=== PATIENT | male | born 1970 | race Two or more races ===

== ENCOUNTER 2020-09-06 20:06 | Inpatient (IN) | payer OTHER, SELFPAY ==
[2020-09-06 20:14] VITALS: BP 160/99; PULSE 81; RESP 20; TEMP 36.4; O2SAT 97; BMI 27.6
[2020-09-06 20:23] VITALS: PULSE 78; RESP 18; O2SAT 100
--- NOTE | 2020-09-06 20:23 | XR_ITS ---
EXAMINATION: XR CHEST CLINICAL INFORMATION: Chest pain COMPARISON: 05/25/2008 TECHNIQUE: Frontal view of the chest was obtained. FINDINGS: No significant abnormality is noted involving the heart, lungs, mediastinum, bony thorax or soft tissues. XR/XR chest 1V IMPRESSION: Unremarkable examination.
--- NOTE | 2020-09-06 20:23 | ECG_ITS ---
Test Reason : CHEST PRESSURE Blood Pressure : / mmHG Vent. Rate : 080 BPM Atrial Rate : 080 BPM P-R Int : 140 ms QRS Dur : 088 ms QT Int : 382 ms P-R-T Axes : 039 015 -04 degrees QTc Int : 440 ms Normal sinus rhythm ST & T wave abnormality, consider inferior ischemia Abnormal ECG When compared with ECG of 25-MAY-2008 04:10, T wave inversion now evident in Inferior leads Heart rate has decreased Referred By: Generic ED Physician Electronically Signed By:QUYEN LOPEZ MD
--- NOTE | 2020-09-06 21:01 | ED.SOB ---
HPI - SOB/Dyspnea General Chief Complaint: General Medical Stated Complaint: CHEST PAIN Time Seen by Provider: 09/06/20 20:59 Source: patient Mode of arrival: ambulatory Limitations: no limitations History of Present Illness HPI Narrative: This is a 49-year-old male with history of asthma and reports 3 days of chest like pressure without radiation that increases with deep inspiration but denies any cough, fevers, chills and he reports he is an everyday smoker. He denies any recent COVID-19 testing, chest pain /palpitations, but has had some mild nausea for 2 days as well. He denies any recent travel, calf swelling /pain, recent bed-bound state, personal family history of clotting disorders. Related Data Home Medications Medication Instructions Recorded Confirmed No Known Home Meds 09/07/20 09/07/20 Allergies Allergy/AdvReac Type Severity Reaction Status Date / Time shellfish derived Allergy Unknown ANAPHYLAXIS Unverified 06/25/20 14:51 [SHELLFISH DERIVED] Review of Systems Review of Systems: Pertinent positives and negatives as stated in HPI 10 point review of systems is otherwise negative. PMFSH Past Medical History Source: nursing notes reviewed Medical History Asthma No known health problems Social History Social History Alcohol intake: current Alcohol intake frequency: holidays/special occasions only Smoking Status: Current some day smoker Smoked in Last 30 Days: Yes Use of substances other than those prescribed or required for medical reasons: No Advance Directives: No Advance Directives Information Provided: Yes Physical Exam Vital Signs: Vital Signs: Last Vital Signs Temp 97.6 F 09/06/20 20:14 Pulse 72 09/07/20 02:00 Resp 18 09/07/20 02:00 BP 160/99 H 09/06/20 20:14 Pulse Ox 100 09/07/20 02:00 Body Mass Index 27.6 VITAL SIGNS: Reviewed. GENERAL: Well developed, well nourished, in no acute distress. HEAD: Normocephalic/atraumatic, EYES: PERRLA, EOMI intact without pain, no nystagmus/pallor/icterus noted EARS: Ext canals without abnormality, TMs non-bulging and non-erythematous NOSE: Nares patent bilateral OROPHARYNX: no oral lesions noted, posterior pharynx clear and non-erythematous without noted tonsillar enlargement/erythema/exudates NECK: Supple, no adenopathy LUNGS: Normal breath sounds. No adventitious sounds or accessory muscle use. SpO2<97> CARDIOVASCULAR: Regular rate and rhythm without noted murmurs, no JVD or lower extremity edema. ABDOMEN: Soft, non-tender, non-distended with bowel sounds. No rigidity. No guarding. No palpable masses or hernias noted MUSCULOSKELETAL: No tenderness, deformities, or effusions noted on gross inspection. EXTREMITIES: No cyanosis, clubbing or edema. SKIN: Inspection of the skin reveals no rashes, ulcerations, jaundice, pallor, or petechiae. NEUROLOGIC: Alert and oriented x 4. Strength and sensation to light touch were grossly intact x 4. Course Course Course Narrative: 49-year-old male with past medical history and clinical exam suggestive of possible mild asthma but will rule out pneumonia or cardiac etiologies. On review of all investigations there are no acute findings other than the high sensitivity troponin is elevated as documented below and 2nd troponin did not demonstrate doubling or a delta 50% so this is inconsistent with NSTEMI but will update cardiology with these results. Of note, the D-dimer was negative and COVID-19 is negative and chest x-ray is without acute pathologies. This case was discussed with inpatient hospitalist who is agreeable for admission. Repeat troponin was found to be slightly greater than 700 and this was communicated with cardiology who has no further recommendations regarding anticoagulation at this time and will proceed with echocardiogram in the morning. Reevaluation(s) Reevaluation #1: Lab called and reported a troponin level of 635.2, will discuss this with Cardiology and on review of EKG there are changes within the inferior distribution when compared to 05/25/[address] elevations and suspect that this may be an NSTEMI or alternative etiology troponin elevation such as a myopericarditis Time: 22:15 Reevaluation #2: I discussed the case with Dr. Molina who states there is a possibility that this could be of myocarditis specially with the given history however we will repeat the troponin and he agrees with initial administration of aspirin. Time: 22:40 MDM - SOB/Dyspnea Lab Data Result diagrams: 09/06/20 21:31 09/06/20 21:31 Labs: Lab Results 09/06/20 09/06/20 09/06/20 Range/Units 21:31 21:31 21:31 WBC 10.6 (4.8-10.8) X10*3/uL RBC 5.30 (4.60-5.80) X10*6/uL Hgb 16.5 (14.0-18.0) g/dl Hct 48.0 (42-52) % MCV 90.6 (80-98) fL MCH 31.1 (27.0-33.0) pg MCHC 34.4 (31.0-36.0) g/dl RDW 12.6 (11.0-16.0) % Plt Count 267 (160-400) X10*3/uL MPV 11.2 (9.4-12.4) fL Immature Gran % (Auto) 0.3 (0.0-0.4) % Neut % (Auto) 53.4 (45-73) % Lymph % (Auto) 34.3 (20-40) % [place] % (Auto) 9.6 (2-11) % Eos % (Auto) 1.9 (0-4) % Baso % (Auto) 0.5 (0-2) % Lymph # (Auto) 3.6 (1.2-4.9) X10*3/uL [place] # (Auto) 1.0 (0.1-1.2) X10*3/uL Eos # (Auto) 0.2 (0.0-0.4) X10*3/uL Baso # (Auto) 0.1 (0.0-0.2) X10*3/uL Abs Immat Gran (auto) 0.03 (0.00-0.03) X10*3/uL Absolute Neuts (auto) 5.7 (2.0-8.3) X10*3/uL Absolute Nucleated RBC 0.000 (0.0-0.012) X10*3/uL Nucleated RBC % (auto) 0.0 (0.0-0.2) /100WBC D-Dimer < 200 NG/ML Hold Blue Top SEE NOTE Sodium 139 (135-145) mmol/L Potassium 4.0 (3.3-5.1) mmol/l Chloride 102 (96-108) mmol/L Carbon Dioxide 28 (22-29) mmol/L Anion Gap 13 (12-20) BUN 9 (9-16) mg/dL Creatinine 0.94 (0.5-1.4) mg/dL Estim Creat Clear Calc 96.1 Estimated GFR > 60 Random Glucose 90 (60-115) mg/dL Calcium 9.3 (8.4-10.2) mg/dL Troponin I High Sens (<3.5-35.0) ng/L C-Reactive Protein 0.52 H (< or = 0.50) mg/dL Urine Opiates Screen (Not Detect) Ur Barbiturates Screen (Not Detect) Ur Phencyclidine Scrn (Not Detect) Ur Amphetamines Screen (Not Detect) U Benzodiazepines Scrn (Not Detect) Urine Cocaine Screen (Not Detect) U Marijuana (THC) Screen (Not Detect) Coronavirus (PCR) (Negative) Influenza Type A (PCR) (Negative) Influenza Type B (PCR) (Negative) RSV RNA Qual (PCR) (Negative) 09/06/20 09/06/20 09/06/20 Range/Units 21:31 23:03 23:42 WBC (4.8-10.8) X10*3/uL RBC (4.60-5.80) X10*6/uL Hgb (14.0-18.0) g/dl Hct (42-52) % MCV (80-98) fL MCH (27.0-33.0) pg MCHC (31.0-36.0) g/dl RDW (11.0-16.0) % Plt Count (160-400) X10*3/uL MPV (9.4-12.4) fL Immature Gran % (Auto) (0.0-0.4) % Neut % (Auto) (45-73) % Lymph % (Auto) (20-40) % [place] % (Auto) (2-11) % Eos % (Auto) (0-4) % Baso % (Auto) (0-2) % Lymph # (Auto) (1.2-4.9) X10*3/uL [place] # (Auto) (0.1-1.2) X10*3/uL Eos # (Auto) (0.0-0.4) X10*3/uL Baso # (Auto) (0.0-0.2) X10*3/uL Abs Immat Gran (auto) (0.00-0.03) X10*3/uL Absolute Neuts (auto) (2.0-8.3) X10*3/uL Absolute Nucleated RBC (0.0-0.012) X10*3/uL Nucleated RBC % (auto) (0.0-0.2) /100WBC D-Dimer NG/ML Hold Blue Top Sodium (135-145) mmol/L Potassium (3.3-5.1) mmol/l Chloride (96-108) mmol/L Carbon Dioxide (22-29) mmol/L Anion Gap (12-20) BUN (9-16) mg/dL Creatinine (0.5-1.4) mg/dL Estim Creat Clear Calc Estimated GFR Random Glucose (60-115) mg/dL Calcium (8.4-10.2) mg/dL Troponin I High Sens 635.2 H (<3.5-35.0) ng/L C-Reactive Protein (< or = 0.50) mg/dL Urine Opiates Screen Not Detected (Not Detect) Ur Barbiturates Screen Not Detected (Not Detect) Ur Phencyclidine Scrn Not Detected (Not Detect) Ur Amphetamines Screen Not Detected (Not Detect) U Benzodiazepines Scrn Not Detected (Not Detect) Urine Cocaine Screen Not Detected (Not Detect) U Marijuana (THC) Screen POSITIVE H (Not Detect) Coronavirus (PCR) NEGATIVE (Negative) Influenza Type A (PCR) NEGATIVE (Negative) Influenza Type B (PCR) NEGATIVE (Negative) RSV RNA Qual (PCR) NEGATIVE (Negative) 09/07/20 Range/Units 00:59 WBC (4.8-10.8) X10*3/uL RBC (4.60-5.80) X10*6/uL Hgb (14.0-18.0) g/dl Hct (42-52) % MCV (80-98) fL MCH (27.0-33.0) pg MCHC (31.0-36.0) g/dl RDW (11.0-16.0) % Plt Count (160-400) X10*3/uL MPV (9.4-12.4) fL Immature Gran % (Auto) (0.0-0.4) % Neut % (Auto) (45-73) % Lymph % (Auto) (20-40) % [place] % (Auto) (2-11) % Eos % (Auto) (0-4) % Baso % (Auto) (0-2) % Lymph # (Auto) (1.2-4.9) X10*3/uL [place] # (Auto) (0.1-1.2) X10*3/uL Eos # (Auto) (0.0-0.4) X10*3/uL Baso # (Auto) (0.0-0.2) X10*3/uL Abs Immat Gran (auto) (0.00-0.03) X10*3/uL Absolute Neuts (auto) (2.0-8.3) X10*3/uL Absolute Nucleated RBC (0.0-0.012) X10*3/uL Nucleated RBC % (auto) (0.0-0.2) /100WBC D-Dimer NG/ML Hold Blue Top Sodium (135-145) mmol/L Potassium (3.3-5.1) mmol/l Chloride (96-108) mmol/L Carbon Dioxide (22-29) mmol/L Anion Gap (12-20) BUN (9-16) mg/dL Creatinine (0.5-1.4) mg/dL Estim Creat Clear Calc Estimated GFR Random Glucose (60-115) mg/dL Calcium (8.4-10.2) mg/dL Troponin I High Sens 773.6 H (<3.5-35.0) ng/L C-Reactive Protein (< or = 0.50) mg/dL Urine Opiates Screen (Not Detect) Ur Barbiturates Screen (Not Detect) Ur Phencyclidine Scrn (Not Detect) Ur Amphetamines Screen (Not Detect) U Benzodiazepines Scrn (Not Detect) Urine Cocaine Screen (Not Detect) U Marijuana (THC) Screen (Not Detect) Coronavirus (PCR) (Negative) Influenza Type A (PCR) (Negative) Influenza Type B (PCR) (Negative) RSV RNA Qual (PCR) (Negative) ECG Data Attestation: I personally reviewed and interpreted this ECG as follows: Prior ECG tracings: available for review ( 05/25/2008 there are EKG changes as noted below.) Ischemic changes: non-specific ST-T wave changes ( lead 3, AVF) Interpretation: sinus rhythm, heart rate-80, concerns for possible ischemic changes in the inferior distribution, SC/QRS/ QTC are within normal limits. Discharge Plan Discharge Clinical Impression: Myopericarditis Patient Disposition: Admitted As Inpatient Interventions: Admission Worksheet (ED) Last Done: 09/07/20 02:12
[2020-09-06 21:37] LABS: MANUAL DIFF FLAG NO
[2020-09-06 21:41] LABS: Basophils Absolute Auto 0.1 X10*3/uL (0.0-0.2); Basophils Percent Auto 0.5 % (0-2); Eosinophils Absolute Auto 0.2 X10*3/uL (0.0-0.4); Eosinophils Percent Auto 1.9 % (0-4); Hemoglobin 16.5 g/dl (14.0-18.0); Imm Gran Abs Auto 0.03 X10*3/uL (0.00-0.03); Imm Gran Pct Auto 0.3 % (0.0-0.4); Lymphocytes Absolute Auto 3.6 X10*3/uL (1.2-4.9); Lymphocytes Percent Auto 34.3 % (20-40); Mean Corpuscular HGB Conc 34.4 g/dl (31.0-36.0); Mean Corpuscular Hemoglobin 31.1 pg (27.0-33.0); Mean Corpuscular Volume 90.6 fL (80-98); Mean Platelet Volume 11.2 fL (9.4-12.4); Monocytes Percent Auto 9.6 % (2-11); Neutrophils Absolute Auto 5.7 X10*3/uL (2.0-8.3); Neutrophils Percent Auto 53.4 % (45-73); Platelet Count 267 X10*3/uL (160-400); Red Cell Distribution Width 12.6 % (11.0-16.0); White Blood Count 10.6 X10*3/uL (4.8-10.8)
[2020-09-06] MEDS: predniSONE 10 MG TABLET 50 MG PO (21:55)
[2020-09-06 22:00] LABS: Anion Gap 13 (12-20); Blood Urea Nitrogen 9 mg/dL (9-16); Calcium 9.3 mg/dL (8.4-10.2); Carbon Dioxide 28 mmol/L (22-29); Chloride 102 mmol/L (96-108); Creatinine Clr Calc Pharmacy 96.1; Estimated Glomerular Filt Rate > 60; Glucose Random 90 mg/dL (60-115); Sodium 139 mmol/L (135-145)
[2020-09-06] MEDS: Albuterol Sulfate (0.083%) 2.5 MG/3 ML VIAL.NEB INHALE (22:05)
[2020-09-06 22:07] VITALS: PULSE 71; O2SAT 99
[2020-09-06 22:15] LABS: Troponin-I High Sensitivity 635.2 ng/L (<3.5-35.0)
[2020-09-06 22:31] LABS: D Dimer < 200 NG/ML
[2020-09-06] MEDS: Aspirin 81 MG TAB.CHEW 324 MG PO (23:01)
[2020-09-06 23:15] LABS: C Reactive Protein 0.52 mg/dL (< or = 0.50)
--- NOTE | 2020-09-06 23:44 | PC.NURSE ---
Urine sample obtained and sent for analysis. Pt ambulating to the bathroom with a eason/steady gait. Continue to monitor.
[2020-09-07] LABS: Influenza A PCR NEGATIVE (Negative); Influenza B PCR NEGATIVE (Negative); Resp Syncy Virus RNA Qual PCR NEGATIVE (Negative); SARS COV2 PCR INHOUSE NEGATIVE (Negative)
[2020-09-07 00:27] LABS: Amphetamine Screen Urine Not Detected (Not Detect); Barbiturates, Urine Not Detected (Not Detect); Benzodiazepines Screen Urine Not Detected (Not Detect); Cannabinoid Screen Urine POSITIVE (Not Detect); Cocaine Screen Urine Not Detected (Not Detect); Opiate Screen Urine Not Detected (Not Detect); Phencyclidine Screen Urine Not Detected (Not Detect)
--- NOTE | 2020-09-07 01:17 | PM.IMHP ---
History of Present Illness Date of Service: 09/07/20 Chief Complaint: chest pain 49 y/o male with PMHX of asthma who presented from home c/o chest pain. Per history provided by the patient, for the past 3 days has been having on and off episodes of chest discomfort, sharp like, in the left side of the chest, radiating to the back, not associated with SOB, nausea or vomiting. Reports that pain sometimes is worse with ambulation but it may happen at any time. Has not notice if anything makes it better. Denies any previous epidose in the past like this. On presentation to the ED initial BP was 160/89 mmHg, no evidence of fever. Troponin of 635 initially, EKG showing no evidence of any acute changes. 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 Pending second troponin and echo in the am. Decision for admission given. Patient seen and examined at the bedside, laying down in bed in no acute distress. ROS as above otherwise negative. Physical exam unremarkable. PMHX: Asthma PSx: none Toxic habits: Smoker, Marijuana abuse, social alcohol drinker Review of Systems Cardiovascular: Cardiovascular: Reports chest pain PMFSH Medical History Asthma No known health problems Functional capacity: independent ambulation Social History Advance Directives: No Advance Directives Information Provided: Yes Meds Allergies Allergy/AdvReac Type Severity Reaction Status Date / Time shellfish derived Allergy Unknown ANAPHYLAXIS Unverified 06/25/20 14:51 [SHELLFISH DERIVED] Home Medications Medication Instructions Recorded Confirmed Type No Known Home Meds 09/07/20 09/07/20 History Physical Exam Vital Signs and Narrative: Vital Signs: Last Vital Signs Temp 97.6 F 09/06/20 20:14 Pulse 71 09/06/20 22:07 Resp 20 09/06/20 20:14 BP 160/99 H 09/06/20 20:14 Pulse Ox 97 09/06/20 20:14 Body Mass Index 27.6 Results Labs CBC and Chem 7: 09/06/20 21:31 09/06/20 21:31 Labs: Laboratory Results - last 24 hr 09/06/20 09/06/20 09/06/20 21:31 21:31 21:31 MCV 90.6 MCH 31.1 MCHC 34.4 RDW 12.6 Plt Count 267 MPV 11.2 Immature Gran % (Auto) 0.3 Neut % (Auto) 53.4 Lymph % (Auto) 34.3 [place] % (Auto) 9.6 Eos % (Auto) 1.9 Baso % (Auto) 0.5 Lymph # (Auto) 3.6 [place] # (Auto) 1.0 Eos # (Auto) 0.2 Baso # (Auto) 0.1 Abs Immat Gran (auto) 0.03 Absolute Neuts (auto) 5.7 Absolute Nucleated RBC 0.000 Nucleated RBC % (auto) 0.0 D-Dimer < 200 Hold Blue Top SEE NOTE Anion Gap 13 Estim Creat Clear Calc 96.1 Estimated GFR > 60 Random Glucose 90 Calcium 9.3 Troponin I High Sens C-Reactive Protein 0.52 H Urine Opiates Screen Ur Barbiturates Screen Ur Phencyclidine Scrn Ur Amphetamines Screen U Benzodiazepines Scrn Urine Cocaine Screen U Marijuana (THC) Screen Coronavirus (PCR) Influenza Type A (PCR) Influenza Type B (PCR) RSV RNA Qual (PCR) 09/06/20 09/06/20 09/06/20 21:31 23:03 23:42 MCV MCH MCHC RDW Plt Count MPV Immature Gran % (Auto) Neut % (Auto) Lymph % (Auto) [place] % (Auto) Eos % (Auto) Baso % (Auto) Lymph # (Auto) [place] # (Auto) Eos # (Auto) Baso # (Auto) Abs Immat Gran (auto) Absolute Neuts (auto) Absolute Nucleated RBC Nucleated RBC % (auto) D-Dimer Hold Blue Top Anion Gap Estim Creat Clear Calc Estimated GFR Random Glucose Calcium Troponin I High Sens 635.2 H C-Reactive Protein Urine Opiates Screen Not Detected Ur Barbiturates Screen Not Detected Ur Phencyclidine Scrn Not Detected Ur Amphetamines Screen Not Detected U Benzodiazepines Scrn Not Detected Urine Cocaine Screen Not Detected U Marijuana (THC) Screen POSITIVE H Coronavirus (PCR) NEGATIVE Influenza Type A (PCR) NEGATIVE Influenza Type B (PCR) NEGATIVE RSV RNA Qual (PCR) NEGATIVE Imaging Radiologist's Impressions: Impressions Chest X-Ray 09/06/20 20:23 IMPRESSION: Unremarkable examination. Assessment and Plan (1) Chest pain: Status: Acute S/p one dose of aspirin 324 mg and prednisone 50 mg per Ed attending Initial troponin of 631 Follow up second troponin level and repeat EKG in 6 hrs from now compliance monitor Pain control Follow up 2D echo in the am Cardiology consult in the am
[2020-09-07 01:52] LABS: Troponin-I High Sensitivity 773.6 ng/L (<3.5-35.0)
[2020-09-07 02:00] VITALS: PULSE 72; RESP 18; O2SAT 100
--- NOTE | 2020-09-07 02:29 | CA_ITS ---
Transthoracic Echocardiogram Patient (Last, First, Middle): Khalif Cook, Gender: Male Date of : 1970 Age: 49 Procedure Date: 09/07/2020 Procedure Type: Transthoracic Echocardiogram [place] [facility] [place]: 175.26 cm Weight: 84.82 kg BSA: 2.01 m2 Heart Rate: bpm BP: 148 / 87 mmHg Radiological Technologist: Ricci MD: Salazar Zamudio MD Arcade Technician: Juan Santana MD Symptoms: elevated troponin Study Quality: Good ECG Rhythm: Sinus Conclusions: - 1. Low normal LV systolic function with possible basal and mid inferior wall hypokinesis with normal diastolic function 2. Normal cardiac valvular Doppler 3. No gross pericardial effusion Findings Procedure Information Contrast agent, definity, is being given per protocol without apparent complications. Left Ventricle Normal left ventricular cavity size. There is mildly increased left ventricular wall thickness. The left ventricular systolic function is low normal. The visually estimated ejection fraction is between 50-55%. Spectral Doppler is indicative of a normal filling pattern. Wall Motion Rest Echo Findings The basal inferior and mid inferior segments are hypokinetic. All other scored wall segments showed normal motion. Right Ventricle Normal right ventricular cavity size and systolic function. Atria Both atria are normal in size. There is no evidence of interatrial shunt. Aortic Valve Normal aortic valve structure and function. There is no aortic valve stenosis. There is no aortic valve regurgitation. Mitral Valve Normal mitral valve structure and function. There is trace mitral valve regurgitation. There is no mitral valve stenosis. Pulmonic Valve The pulmonic valve is likely normal. Tricuspid Valve Normal tricuspid valve structure. Tricuspid regurgitation envelope is inadequate for calculation of right ventricular systolic pressure. Great Vessels All visible segments of the aorta are normal in size. The pulmonary artery was not well visualized. Venous The inferior vena cava is normal in size and collapses greater than 50% with inspiration. Pericardium/Pleural There is no evidence of pericardial effusion. Prior Study Comparison No prior study available for comparison. Measurements 2D Linear Measurements RVIDd: 3.61 RVIDd Index: 1.80 IVSd: 1.10 0.6-0.9/0.6-1.0 cm LVIDd: 4.58 3.9-5.3/4.2-5.9 cm LVIDd Index: 2.28 2.4-3.2/2.2-3.1 cm/m2 LVIDs: 2.85 2.0-3.6 cm LVPWd: 1.22 0.7-1.1 cm Ao Root: 3.30 2.1-3.5 cm LA Diam: 4.20 2.7-3.8/3.0-4.0 cm LAIDs Index: 2.09 1.5-2.3 cm/m2 LV Mass: 241.73 67-162/88-224 g LV Mass Index: 120.27 43-95/49-115 g/m2 LVOT Diam: 2.50 3.0+(-)1.3 cm 2D Systolic Function EF 4C: 59.00 >55% EF 2C: 52.80 >55% EF BiP: 53.50 >55% Mitral Valve MV Pk E: 0.72 MV PK A: 0.72 MV Decel Time: 153.00 E/A: 1.00 E'Lateral: 8.92 E'Medial: 3.81 E/E' Med: 18.80 E/E' Lat: 8.00 Aortic Valve AoV Pk Zia: 1.09 AoV Mn Zia: 0.88 AoV VTI: 0.23 AoV Pk Grad: 5.00 Aov Mn Grad: 3.00 DAQUAN Cont.VTI: 3.81 LVOT LVOT Pk Zia: 0.97 LVOT Mn Zia: 0.69 LVOT VTI: 0.18 LVOT Pk Grad: 4.00 LVOT Mn Grad: 2.00 LVOT Diam: 2.50 LVOT Area: 4.91 Diastolic Function MV Pk E: 0.72 MV Pk A: 0.72 E/A: 1.00 E'Medial: 3.81 E/E' Med: 18.80 E' Laterial: 8.92 E/E' Lat: 8.00 Great Vessels Aorta Ao Root-2D: 3.30 2.0-3.7 cm Ao Asc: 3.50 2.1-3.4 cm Updated in Other Vendor System with Status of Final Juan Santana MD electronically signed on 09/07/2020 11:40:13 AM with status of Final
[2020-09-07] MEDS: 0.9 % Sodium Chloride Flush 3 ML SYRINGE IVFLUSH ×2 (02:55→07:56)
[2020-09-07 02:56] VITALS: BP 148/87; PULSE 76; RESP 16; TEMP 36.6; O2SAT 98
[2020-09-07] MEDS: Ibuprofen 600 MG TABLET PO (03:26)
[2020-09-07] MEDS: Heparin Sodium,Porcine 5,000 UNIT/ML VIAL 5000 UNIT SUBCUT (06:29)
--- NOTE | 2020-09-07 09:15 | MHC.CM.PN ---
CM met with Patient. Patient lives in an apartment with his Girlfriend/Lorena([phone]) and 2 Step Daughters, ages 19 and 16. Patient's goal is to return home, no services and CM has initiated and will follow for dc planning. Patient has no insurance (referral made to [facility] [employer] [employer]) and no PCP. Patient's Brother/Kathie is the HCP.
--- NOTE | 2020-09-07 09:45 | PM.CNCAR ---
History of Present Illness History of Present Illness Date of Service: 09/07/20 Requesting physician: Carlos Peña Consult reason: chest pain Chief complaint: CHEST PAIN Narrative: Thank you for asking us for a consult on Khalif for chest discomfort. He is a pleasant 49-year-old man who was a smoker smokes about 4 cigarettes a day recently noted having elevated blood pressure. Does not see a primary care physician. The last 2-3 days he has been having pressure in his chest and the retro sternum. Symptoms would come even when he was rest. Symptoms then would dissipate. He then tried wanted to go to the store and when he was exerting and says got significant chest pressure associated with shortness of breath. He thought this might be related to sinusitis that he was having and had mucus buildup. However he did not have any cough, productive phlegm. No fever or chills at home. Symptoms persisted and thus why he decided to come to the emergency room. EKG shows inferior T-wave changes as well as shows minor J-point depression in anterolateral leads. These are slightly different than his prior EKG. He says about 2 weeks he has been having increased symptoms of skipped heartbeats. However he has had these symptoms for last 5 years, increasing frequency recently. No other systemic symptoms. His symptoms have completely resolved. His troponins are elevated. Review of Systems Constitutional: Constitutional: Denies body ache(s), Denies chills, Denies fever(s), Denies lethargy and Denies weakness Eyes: Eyes: Reports no additional eye complaints ENT: Reports system reviewed and no additional complaints, except as documented Cardiovascular: Cardiovascular: Reports chest pain at rest, Reports chest pain with activity, Reports irregular heart rhythm, Denies claudication, Denies orthopnea and Denies paroxysmal nocturnal dyspnea Respiratory: Respiratory: Denies cough and Denies excessive phlegm production Gastrointestinal: Gastrointestinal: Reports no additional gastrointestinal complaints Genitourinary: Genitourinary: Reports no additional male genitourinary complaints Musculoskeletal: Musculoskeletal: Reports no additional musculoskeletal complaints Neurologic: Reports system reviewed and no additional complaints, except as documented and Denies weakness Endocrine: Endocrine: Reports no additional endocrine complaints Hematologic/Lymphatic: Hematologic/Lymphatic: Reports no additional hematologic/lymphatic complaints Allergic/Immunologic: Allergic/Immunologic: Reports no additional allergic/immunologic complaints [facility] Past Medical History Medical History Asthma No known health problems Functional capacity: independent ambulation Social History Social History Household Members: Significant Other and Children Housing: Apartment Do you presently have visiting nurse or other home services: No Alcohol intake: current Alcohol intake frequency: holidays/special occasions only Smoking Status: Current some day smoker Tobacco Type: Cigarette Cigarettes Per Day: 4 Years Smoked: 30 Smoked in Last 30 Days: Yes Patient Interested in Nicotine Replacement: Yes Use of substances other than those prescribed or required for medical reasons: Yes Substance Use Type: Marijuana Substance Use Frequency: Daily Last Used Substance: Hours (ago) Currently Displaying Signs/Symptoms of Drug Intoxication Withdrawal: No Have you been hit, kicked, punched, or otherwise hurt by someone within the past year? If so, by whom?: No Do you feel safe in your current relationship?: Yes Is there a partner from a previous relationship who is making you feel unsafe now?: No Are you made to feel afraid or neglected: No Advance Directives: No Advance Directives Information Provided: Yes Do you have thoughts of harming others: None Do you have a plan to hurt others: No Plan Recently lost weight without trying: No service: No Current occupational status: unemployed Meds Allergies Allergy/AdvReac Type Severity Reaction Status Date / Time shellfish derived Allergy Unknown ANAPHYLAXIS Unverified 06/25/20 14:51 [SHELLFISH DERIVED] Home Medications Medication Instructions Recorded Confirmed Type No Known Home Meds 09/07/20 09/07/20 History Physical Exam Vital Signs: Vital Signs: Last Vital Signs Temp 97.8 F 09/07/20 02:56 Pulse 76 09/07/20 02:56 Resp 16 09/07/20 02:56 BP 148/87 H 09/07/20 02:56 Pulse Ox 98 09/07/20 02:56 Body Mass Index 27.6 Const: General: cooperative, well developed, alert and awake Nutritional Appearance: average body habitus Orientation/consciousness: patient oriented x3 HENMT: Head: Yes normal to inspection, Yes normocephalic and Yes atraumatic Eyes: General: appearance normal, both eyes and all related structures Neck: Neck: Yes normal visual inspection, Yes trachea midline and Yes supple Carotids: other (No carotid bruit) Chest: Chest palpation & inspection: normal inspection of the chest Resp: Effort & Inspection: normal respiratory effort Auscultation: clear to auscultation bilaterally Cardio: Jugular venous distension: no JVD Palpation: normal PMI Rate: regular rate Rhythm: regular rhythm Heart sounds: S1 normal heart sound present and S2 normal heart sound present Peripheral pulses: Peripheral pulses 2+ throughout GI: Auscultation: normal bowel sounds Skin: General skin exam: no rashes or lesions noted Neuro: General: patient oriented x3 and no focal motor deficits Extrem: General: Yes no clubbing, cyanosis or edema Psych: Appearance: grossly normal Results Labs and Meds Result diagrams: 09/06/20 21:31 09/06/20 21:31 Lab results: Laboratory Results - last 24 hr 09/06/20 09/06/20 09/06/20 21:31 21:31 21:31 WBC 10.6 RBC 5.30 Hgb 16.5 Hct 48.0 MCV 90.6 MCH 31.1 MCHC 34.4 RDW 12.6 Plt Count 267 MPV 11.2 Immature Gran % (Auto) 0.3 Neut % (Auto) 53.4 Lymph % (Auto) 34.3 Vilas % (Auto) 9.6 Eos % (Auto) 1.9 Baso % (Auto) 0.5 Lymph # (Auto) 3.6 Vilas # (Auto) 1.0 Eos # (Auto) 0.2 Baso # (Auto) 0.1 Abs Immat Gran (auto) 0.03 Absolute Neuts (auto) 5.7 Absolute Nucleated RBC 0.000 Nucleated RBC % (auto) 0.0 D-Dimer < 200 Hold Blue Top SEE NOTE Sodium 139 Potassium 4.0 Chloride 102 Carbon Dioxide 28 Anion Gap 13 BUN 9 Creatinine 0.94 Estim Creat Clear Calc 96.1 Estimated GFR > 60 Random Glucose 90 Calcium 9.3 Troponin I High Sens C-Reactive Protein 0.52 H Urine Opiates Screen Ur Barbiturates Screen Ur Phencyclidine Scrn Ur Amphetamines Screen U Benzodiazepines Scrn Urine Cocaine Screen U Marijuana (THC) Screen Coronavirus (PCR) Influenza Type A (PCR) Influenza Type B (PCR) RSV RNA Qual (PCR) 09/06/20 09/06/20 09/06/20 21:31 23:03 23:42 WBC RBC Hgb Hct MCV MCH MCHC RDW Plt Count MPV Immature Gran % (Auto) Neut % (Auto) Lymph % (Auto) Vilas % (Auto) Eos % (Auto) Baso % (Auto) Lymph # (Auto) Vilas # (Auto) Eos # (Auto) Baso # (Auto) Abs Immat Gran (auto) Absolute Neuts (auto) Absolute Nucleated RBC Nucleated RBC % (auto) D-Dimer Hold Blue Top Sodium Potassium Chloride Carbon Dioxide Anion Gap BUN Creatinine Estim Creat Clear Calc Estimated GFR Random Glucose Calcium Troponin I High Sens 635.2 H C-Reactive Protein Urine Opiates Screen Not Detected Ur Barbiturates Screen Not Detected Ur Phencyclidine Scrn Not Detected Ur Amphetamines Screen Not Detected U Benzodiazepines Scrn Not Detected Urine Cocaine Screen Not Detected U Marijuana (THC) Screen POSITIVE H Coronavirus (PCR) NEGATIVE Influenza Type A (PCR) NEGATIVE Influenza Type B (PCR) NEGATIVE RSV RNA Qual (PCR) NEGATIVE 09/07/20 00:59 WBC RBC Hgb Hct MCV MCH MCHC RDW Plt Count MPV Immature Gran % (Auto) Neut % (Auto) Lymph % (Auto) Vil[place] % (Auto) Eos % (Auto) Baso % (Auto) Lymph # (Auto) Vil[place] # (Auto) Eos # (Auto) Baso # (Auto) Abs Immat Gran (auto) Absolute Neuts (auto) Absolute Nucleated RBC Nucleated RBC % (auto) D-Dimer Hold Blue Top Sodium Potassium Chloride Carbon Dioxide Anion Gap BUN Creatinine Estim Creat Clear Calc Estimated GFR Random Glucose Calcium Troponin I High Sens 773.6 H C-Reactive Protein Urine Opiates Screen Ur Barbiturates Screen Ur Phencyclidine Scrn Ur Amphetamines Screen U Benzodiazepines Scrn Urine Cocaine Screen U Marijuana (THC) Screen Coronavirus (PCR) Influenza Type A (PCR) Influenza Type B (PCR) RSV RNA Qual (PCR) EKG shows normal sinus rhythm with T-wave inversions in lead 3 and AVF as well as mild ST sagging in anterolateral leads. Assessment and Plan (1) ACS (acute coronary syndrome): Status: Acute His symptoms are highly concerning for acute coronary syndrome with elevated troponins this is highly likely. Risk factors of hypertension and age. He also has minor EKG changes that could suggest ischemia. There is a possibility of myopericarditis as well, however he has no other systemic symptoms to suggest the same. Recommend cardiac catheterization to evaluate for coronary anatomy. He will need transfer to [facility]. He is agreeable for the same. We discussed the risks, benefits, alternatives and 2nd opinion to the cardiac catheterization. Understands and agrees. Arrangements have been made for transfer. Meanwhile continue with aspirin therapy. Start IV heparin, metoprolol, nitrates as well as high-intensity statin therapy. Discussed the case with hospitalist team. (2) HTN (hypertension): Status: Acute Recent onset elevated blood pressure. This could represent hypertension, has family history of the same. Start metoprolol and nitrates as above.
[2020-09-07 09:51] VITALS: BP 137/98; PULSE 87; RESP 20; TEMP 36.6; O2SAT 96
--- NOTE | 2020-09-07 10:11 | PM.DS ---
DS: Providers Provider Date of admission: 09/07/20 01:27 Primary care physician: No Physician Consults: 09/07/20 02:29 Consult to Cardiology Routine Consulting Provider: [facility] [place] [facility] Reason for consultation: suspected pericarditis Has provider been notified: Yes DS: Diagnosis Discharge Diagnosis (1) ACS (acute coronary syndrome): Status: Acute (2) HTN (hypertension): Status: Acute DS: Medications Discharge Medications Home Medications: Home Medications Medication Instructions Recorded Confirmed No Known Home Meds 09/07/20 09/07/20 DS: Summary Hospital Course Hospital Course: HPI: 49 y/o male with PMHX of asthma who presented from home c/o chest pain. Per history provided by the patient, for the past 3 days has been having on and off episodes of chest discomfort, sharp like, in the left side of the chest, radiating to the back, not associated with SOB, nausea or vomiting. Reports that pain sometimes is worse with ambulation but it may happen at any time. Has not notice if anything makes it better. Denies any previous epidose in the past like this. On presentation to the ED initial BP was 160/89 mmHg, no evidence of fever. Troponin of 635 initially, EKG showing no evidence of any acute changes. [employer] contacted per ED who does not recommends at present AC as there is high suspcion for possible pericarditis. Pending second troponin and echo in the am. Decision for admission given. Patient seen and examined at the bedside, laying down in bed in no acute distress. ROS as above otherwise negative. Physical exam unremarkable. Hospital Course Patient was admitted to telemetry for furthe evaluation of his chest pain. He was seen by cardiology in the AM and was started on treatment for ACS with iv heparin, statin, bb, nitropaste and asa. His chest pain had resolved, but due to his overall picture -- his symptoms were felt to be highly concerning for ACS and decision was made to trasnfer him to [facility] [place] for cardiac catherization. Patient informed and agreeable for trasnfer Time Spent with Patient Time attestation: Total time spent providing and/or coordinating discharge services: Physical Exam Vital Signs: Vital Signs: Last Vital Signs Temp 97.9 F 09/07/20 09:51 Pulse 87 09/07/20 09:51 Resp 20 09/07/20 09:51 BP 137/98 H 09/07/20 09:51 Pulse Ox 96 09/07/20 09:51 Body Mass Index 27.6 General - no acute distress, appears comfortable Cardiovascular - regular rate and rhythm, S1-S2 Lungs - normal respiratory effort, clear to auscultation bilaterally, no wheezing Abdomen - soft, nontender, no rebound or guarding Extremities - no edema bilaterally Neuro - awake and alert, no focal deficits DS: Data Data Completed and Pending Labs on day of discharge: Laboratory Last Values WBC 10.6 X10*3/uL (4.8-10.8) 09/06/20 21: RBC 5.30 X10*6/uL (4.60-5.80) 09/06/20 21: Hgb 16.5 g/dl (14.0-18.0) 09/06/20 21: Hct 48.0 % (42-52) 09/06/20 21: MCV 90.6 fL (80-98) 09/06/20 21: MCH 31.1 pg (27.0-33.0) 09/06/20 21: MCHC 34.4 g/dl (31.0-36.0) 09/06/20 21: RDW 12.6 % (11.0-16.0) 09/06/20 21: Plt Count 267 X10*3/uL (160-400) 09/06/20 21: MPV 11.2 fL (9.4-12.4) 09/06/20 21: Immature Gran % (Auto) 0.3 % (0.0-0.4) 09/06/20 21: Neut % (Auto) 53.4 % (45-73) 09/06/20 21: Lymph % (Auto) 34.3 % (20-40) 09/06/20 21: Elliott % (Auto) 9.6 % (2-11) 09/06/20 21: Eos % (Auto) 1.9 % (0-4) 09/06/20 21: Baso % (Auto) 0.5 % (0-2) 09/06/20 21: Lymph # (Auto) 3.6 X10*3/uL (1.2-4.9) 09/06/20 21:31 Elliott # (Auto) 1.0 X10*3/uL (0.1-1.2) 09/06/20 21: Eos # (Auto) 0.2 X10*3/uL (0.0-0.4) 09/06/20 21:31 Baso # (Auto) 0.1 X10*3/uL (0.0-0.2) 09/06/20 21: Abs Immat Gran (auto) 0.03 X10*3/uL (0.00-0.03) 09/06/20 21:31 Absolute Neuts (auto) 5.7 X10*3/uL (2.0-8.3) 09/06/20 21: Absolute Nucleated RBC 0.000 X10*3/uL (0.0-0.012) 09/06/20 21: Nucleated RBC % (auto) 0.0 /100WBC (0.0-0.2) 09/06/20 21:31 D-Dimer < 200 NG/ML 09/06/20 21:31 Hold Blue Top SEE NOTE 09/06/20 21:31 Sodium 139 mmol/L (135-145) 09/06/20 21: Potassium 4.0 mmol/l (3.3-5.1) 09/06/20 21: Chloride 102 mmol/L (96-108) 09/06/20 21: Carbon Dioxide 28 mmol/L (22-29) 09/06/20 21:31 Anion Gap 13 (12-20) 09/06/20 21:31 BUN 9 mg/dL (9-16) 09/06/20 21: Creatinine 0.94 mg/dL (0.5-1.4) 09/06/20 21:31 Estim Creat Clear Calc 96.1 09/06/20 21:31 Estimated GFR > 60 09/06/20 21:31 Random Glucose 90 mg/dL (60-115) 09/06/20 21:31 Calcium 9.3 mg/dL (8.4-10.2) 09/06/20 21:31 Troponin I High Sens 773.6 ng/L (<3.5-35.0) H 09/07/20 00:59 C-Reactive Protein 0.52 mg/dL (< or = 0.50) H 09/06/20 21:31 Urine Opiates Screen Not Detected (Not Detect) 09/06/20 23:42 Ur Barbiturates Screen Not Detected (Not Detect) 09/06/20 23:42 Ur Phencyclidine Scrn Not Detected (Not Detect) 09/06/20 23:42 Ur Amphetamines Screen Not Detected (Not Detect) 09/06/20 23:42 U Benzodiazepines Scrn Not Detected (Not Detect) 09/06/20 23:42 Urine Cocaine Screen Not Detected (Not Detect) 09/06/20 23:42 U Marijuana (THC) Screen POSITIVE (Not Detect) H 09/06/20 23:42 Coronavirus (PCR) NEGATIVE (Negative) 09/06/20 23:03 Influenza Type A (PCR) NEGATIVE (Negative) 09/06/20 23:03 Influenza Type B (PCR) NEGATIVE (Negative) 09/06/20 23:03 RSV RNA Qual (PCR) NEGATIVE (Negative) 09/06/20 23:03 Discharge Plan Discharge Patient Disposition: [facility] Referrals: Physician,No [Primary Care Provider] - Discharge Medications: New Nitro-Bid 2 % Ointment 1 inch transdermal RQ6H WHILE AWAKE Qty: 1 RF: 0 heparin (porcine) 5,000 unit/mL Solution 6,785.76 unit IVPUSH BOLUS PRN (Reason: 80 Unit/Kg - Heparin Protocol) Qty: 1 RF: 0 heparin (porcine) 5,000 unit/mL Solution 3,392.88 unit IVPUSH BOLUS PRN (Reason: HEPARINPRO) Qty: 1 RF: 0 metoprolol tartrate 25 mg Tablet 25 mg PO BID Qty: 1 RF: 0 heparin(porcine) in 0.45% NaCl 25,000 unit/250 mL Parenteral Solution 25,000 unit continuous IV infusion .Q0M Qty: 1 RF: 0 atorvastatin [Lipitor] 80 mg tablet 80 mg PO DAILY Qty: 1 RF: 0 aspirin 81 mg tablet,chewable 81 mg PO DAILY Qty: 1 RF: 0 Discharge Orders: Discharge Order (Routine); Ordered 09/07/20 Ordered By: Carlos Peña Diet: low fat, low cholesterol and low salt diet Activity [place] [facility] [place] Forms: Patient Portal Discharge page Care Plan Goals: To go to [facility] [place] and get evaluation for heart disease Health Concerns: Heart Disease Plan of Treatment: To go to [facility] for further work up for heart disease
[2020-09-07 10:16] LABS: MANUAL DIFF FLAG NO
[2020-09-07 10:17] LABS: Basophils Percent Auto 0.1 % (0-2); Hematocrit 48.6 % (42-52); Hemoglobin 16.6 g/dl (14.0-18.0); Imm Gran Abs Auto 0.03 X10*3/uL (0.00-0.03); Imm Gran Pct Auto 0.3 % (0.0-0.4); Lymphocytes Absolute Auto 1.5 X10*3/uL (1.2-4.9); Lymphocytes Percent Auto 15.4 % (20-40); Mean Corpuscular HGB Conc 34.2 g/dl (31.0-36.0); Mean Corpuscular Hemoglobin 30.9 pg (27.0-33.0); Mean Corpuscular Volume 90.3 fL (80-98); Mean Platelet Volume 11.3 fL (9.4-12.4); Monocytes Absolute Auto 0.7 X10*3/uL (0.1-1.2); Monocytes Percent Auto 7.5 % (2-11); Neutrophils Absolute Auto 7.6 X10*3/uL (2.0-8.3); Neutrophils Percent Auto 76.7 % (45-73); Platelet Count 276 X10*3/uL (160-400); Red Blood Count 5.38 X10*6/uL (4.60-5.80); Red Cell Distribution Width 12.7 % (11.0-16.0); White Blood Count 9.9 X10*3/uL (4.8-10.8)
[2020-09-07 10:23] LABS: Prothrombin Time 11.6 SEC (10.8-13.0)
[2020-09-07 10:47] LABS: Anion Gap 12 (12-20); Blood Urea Nitrogen 10 mg/dL (9-16); Calcium 9.7 mg/dL (8.4-10.2); Carbon Dioxide 27 mmol/L (22-29); Chloride 102 mmol/L (96-108); Creatinine Clr Calc Pharmacy 112.9; Estimated Glomerular Filt Rate > 60; Glucose Random 115 mg/dL (60-115); Potassium 4.2 mmol/l (3.3-5.1); Sodium 137 mmol/L (135-145)
[2020-09-07] MEDS: Metoprolol Tartrate 25 MG TABLET PO (11:06)
[2020-09-07] MEDS: Nitroglycerin 2 % Oint 1 GM Packet 1 INCH TRANSDERMA (11:06)
[2020-09-07] MEDS: Atorvastatin Calcium 80 MG TABLET PO (11:06)
[2020-09-07] MEDS: Heparin Sodium,Porcine/1/2NS 25,000 UNIT/250 ML IV.SOLN 11.88 UNIT IVCONT (11:14)
[2020-09-07 12:00] VITALS: BP 138/89; PULSE 85; RESP 20; TEMP 36.9; O2SAT 98
--- NOTE | 2020-09-07 15:27 | PC.NURSE ---
Pt to trans to [facility] at 4pm, Report given to Jessica all questions answered. Pt agrees with transfer plan.
== END 2020-09-07 15:50 | disposition short-term general hospital (02) | DRG 198 ==
LOC: HO.ED 09-07 02:00 → HO.IMC 09-07 02:03
PROVIDERS: Admitting Provider Internal Medicine; Emergency Provider Student in an Organized Health Care Education/Training Program; Visit Provider Family Medicine
DX: I24.9 Acute ischemic heart disease, unspecified (principal); F17.210 Nicotine dependence, cigarettes, uncomplicated; J45.909 Unspecified asthma, uncomplicated; Z20.828 Contact with and (suspected) exposure to other viral communicable diseases; Z71.6 Tobacco abuse counseling; Z79.82 Long term (current) use of aspirin; Z79.899 Other long term (current) drug therapy
CPT/HCPCS: 0241U; 36415; 71045; 80048; 80307; 84484; 85025; 85379; 85610; 85730; 86140; 93005; 93306; 94640; 99285; Q9957

== ENCOUNTER → 2020-09-29 15:16 | Outpatient (BNVA) | payer OTHER, SELFPAY | PROVIDERS: PCP Internal Medicine; Visit Provider Internal Medicine Cardiovascular Disease | DX: I25.10 Atherosclerotic heart disease of native coronary artery without angina pectoris (principal); I10 Essential (primary) hypertension | CPT/HCPCS: 99212 ==

== ENCOUNTER 2020-10-23 09:03 | Outpatient (REF) | payer MEDICAID, SELFPAY ==
[2020-10-23 11:12] LABS: Cholesterol 95 mg/dL; HDL Cholesterol 33 mg/dL; LDL Cholesterol Calculated 46 mg/dl; Triglycerides 80 mg/dL
== END 2020-10-23 09:04 | disposition home or self-care (01) ==
LOC: HO.LAB 09:03
PROVIDERS: PCP Nurse Practitioner; Visit Provider Internal Medicine Cardiovascular Disease
DX: I25.10 Atherosclerotic heart disease of native coronary artery without angina pectoris (principal)
CPT/HCPCS: 36415; 80061

== ENCOUNTER → 2021-04-01 14:29 | Outpatient (BNVA) | payer MEDICAID, SELFPAY | PROVIDERS: PCP Nurse Practitioner; Referring Provider Nurse Practitioner; Visit Provider Internal Medicine Cardiovascular Disease | DX: I25.10 Atherosclerotic heart disease of native coronary artery without angina pectoris (principal); I10 Essential (primary) hypertension; E78.5 Hyperlipidemia, unspecified; Z95.5 Presence of coronary angioplasty implant and graft; Z91.013 Allergy to seafood; Z79.82 Long term (current) use of aspirin; Z79.899 Other long term (current) drug therapy | CPT/HCPCS: 99212 ==

== ENCOUNTER 2021-09-24 07:37 | Outpatient (REF) | payer MEDICAID, SELFPAY ==
[2021-09-24 09:04] LABS: Cholesterol 124 mg/dL; HDL Cholesterol 54 mg/dL; LDL Cholesterol Calculated 58 mg/dl; Triglycerides 62 mg/dL
== END 2021-09-24 07:38 | disposition home or self-care (01) ==
LOC: HO.LAB 07:37
PROVIDERS: PCP Nurse Practitioner; Visit Provider Internal Medicine Cardiovascular Disease
DX: I25.10 Atherosclerotic heart disease of native coronary artery without angina pectoris (principal)
CPT/HCPCS: 36415; 80061

== ENCOUNTER 2021-09-26 21:20 | Emergency (ER) | payer MEDICAID, SELFPAY ==
[2021-09-26 23:59] VITALS: BP 125/59; PULSE 56; RESP 18; TEMP 36.3; O2SAT 100; BMI 23.6
--- NOTE | 2021-09-27 00:24 | ED_ITS ---
HPI - Dental/Oral General Chief complaint: Dental/Oral Stated complaint: Dental pain Time Seen by Provider: 09/27/21 00:24 Source: patient Mode of arrival: ambulatory Limitations: no limitations History of Present Illness HPI Narrative: 50-year-old male presented for 3 months of dental pain that has worsened recently. Patient has pain in his left lower molar. No fevers. Patient has been taking Tylenol for pain. Patient has seen a dentist, however patient had an MO last year and states his PCP does not want him to get his tooth extracted this year. MD Complaint: tooth pain Location: Tooth # (18) Teeth map: 1. decayed Onset (ago): month(s) (3) Duration: constant Severity: severe Relieving factors: other (tylenol) Exacerbating factors: chewing, cold and heat Context: history of dental caries Treatment prior to arrival: oral analgesic Related Data Home Medications Medication Instructions Recorded Confirmed nitroglycerin 0.4 mg sublingual mg SUBLINGUAL 09/29/20 04/01/21 tablet Previous Rx's Medication Instructions Recorded aspirin 81 mg chewable tablet 81 mg PO DAILY 90 Days #90 tab 10/06/20 atorvastatin 80 mg tablet (Lipitor) 80 mg PO BEDTIME 90 Days #90 tab 01/28/21 metoprolol succinate 50 mg 50 mg PO DAILY 90 Days #90 tab 01/28/21 tablet,extended release 24 hr ticagrelor 90 mg tablet (Brilinta) 90 mg PO BID 90 Days #180 tab 07/28/21 clindamycin HCl 300 mg capsule 300 mg PO QID 10 Days #40 cap 09/27/21 Allergies Allergy/AdvReac Type Severity Reaction Status Date / Time shellfish derived Allergy Unknown ANAPHYLAXIS Unverified 06/25/20 14:51 [SHELLFISH DERIVED] Review of Systems Constitutional: Constitutional: Denies body ache(s), Denies chills, Denies fatigue, Denies fever(s), Denies headache(s), Denies malaise and Denies weakness ENT: Reports dental pain, Denies vertigo, Denies dizziness, Denies otalgia, Denies headache(s), Reports mouth pain, Denies post nasal drip, Denies sinus pain, Denies sinus pressure, Denies sore throat and Denies throat swelling Cardiovascular: Cardiovascular: Denies chest pain, Denies lightheadedness and Denies dyspnea Respiratory: Respiratory: Denies chest congestion, Denies cough and Denies dyspnea Gastrointestinal: Gastrointestinal: Denies abdominal pain, Denies hematochezia, Denies constipation, Denies diarrhea and Denies vomiting Musculoskeletal: Musculoskeletal: Reports no additional musculoskeletal complaints Neurologic: Denies confusion, Denies vertigo, Denies dizziness, Denies headache(s) and Denies weakness Psychiatric: Psychiatric: Denies anxiety, Denies confusion and Denies depression Endocrine: Endocrine: Denies fatigue Allergic/Immunologic: Allergic/Immunologic: Denies throat swelling PMFSH Past Medical History Medical History ACS (acute coronary syndrome) Asthma CAD (coronary artery disease) Hyperlipidemia No known health problems Surgical History Stented coronary artery Social History Social History Household Members: Significant Other and Children Housing: Apartment Do you presently have visiting nurse or other home services: No Alcohol intake: current Alcohol intake frequency: holidays/special occasions only Cigarettes Per Day: 4 Years Smoked: 30 Substance Use Type: Marijuana Advance Directives: No Advance Directives Information Provided: No service: No Current occupational status: unemployed Physical Exam Vital Signs: Vital Signs: Last Vital Signs Temp 97.4 F 09/26/21 23:59 Pulse 56 09/26/21 23:59 Resp 18 09/26/21 23:59 BP 125/59 L 09/26/21 23:59 Pulse Ox 100 09/26/21 23:59 BMI result Body Mass Index 23.6 Const: General: No confusion Nutritional Appearance: well nourished Orientation/consciousness: No confusion Limitations: no limitations HENMT: Head: Yes normal to inspection, Yes normocephalic and Yes atraumatic Ears: hearing grossly normal bilaterally, external ears normal, TM's normal bilaterally and EAC's normal General nose exam: Normal external nose present Face and sinus: Yes normal facial exam and Yes sinuses nontender Mouth: Normal oral and palatal mucosa present Teeth and gingiva: abnormal tooth and associated gingiva lower left second molar and poor dentition Throat: Yes posterior oropharynx normal Eyes: Conjunctivae: conjunctivae normal Pupils: Equal, round and reactive pupils present EOM: EOMs intact bilaterally Neck: Neck: Yes full ROM, Yes no lymphadenopathy and Yes supple Resp: Effort & Inspection: normal respiratory effort and able to speak in complete sentences Auscultation: clear to auscultation bilaterally, no crackles, no rales, no rhonchi and no wheezes Cardio: Rate: regular rate Rhythm: regular rhythm Heart sounds: S1 normal heart sound present and S2 normal heart sound present Skin: General skin exam: no rashes or lesions noted Neuro: General: No confusion Cranial nerves: Yes Equal, round and reactive pupils present Course Course Course Narrative: 50-year-old male presents for left lower molar dental pain for the last 3 months that is reasoning no worsening. Patient has no trismus, no sub mandibular swelling, floor of patient's mouth is nontender, no gingival ab scess. Tooth 18. Is decayed and worn down. Mild erythema and gingivitis surrounding. Started patient on clindamycin, counseled patient about how much Tylenol was safe to take, counseled patient to call his primary care provider to reassess why patient was told he cannot have tooth extracted. Gave return precautions of fever, worsening pain. Discussed with patient that it will take 2 days for antibiotics to help him feel better. Discharge Plan Discharge Clinical Impression: Toothache Patient Disposition: Home, Self-Care Instructions: Dental Abscess (ED) Additional Instructions: Please call your PCP to discuss a dental procedure to have your tooth pulled. Please take antibiotic as prescribed. As we discussed, for pain, you can take Tylenol as follows, two 500 mg every 8 hours. Two 500 mg is 1000 mg. Do not exceed 6 pills or 3000 mg in 24 hours. If you have fevers, worsening pain, or any other new or concerning symptoms, please return to the emergency room Prescriptions: New clindamycin HCl 300 mg capsule 300 mg PO QID 10 Days Qty: 40 RF: 0 No Action aspirin 81 mg tablet,chewable 81 mg PO DAILY 90 Days Qty: 90 RF: 3 metoprolol succinate 50 mg tablet extended release 24 hr 50 mg PO DAILY 90 Days Qty: 90 RF: 1 atorvastatin [Lipitor] 80 mg tablet 80 mg PO BEDTIME 90 Days Qty: 90 RF: 1 Brilinta 90 mg tablet 90 mg PO BID 90 Days Qty: 180 RF: 0 nitroglycerin 0.4 mg tablet, sublingual sublingual RF: 0 Interventions: ED Discharge Assessment Last Done: 09/27/21 01:10
[2021-09-27] MEDS: Clindamycin HCL 300 MG CAPSULE PO (00:57)
== END 2021-09-27 01:11 | disposition home or self-care (01) ==
PROVIDERS: Emergency Provider Internal Medicine; PCP Nurse Practitioner
DX: K08.89 Other specified disorders of teeth and supporting structures (principal); F12.90 Cannabis use, unspecified, uncomplicated; I10 Essential (primary) hypertension; E78.5 Hyperlipidemia, unspecified
CPT/HCPCS: 99283

== ENCOUNTER 2021-10-09 09:21 | Emergency (ER) | payer MEDICAID, SELFPAY ==
[2021-10-09 09:35] VITALS: BP 137/85; PULSE 90; RESP 18; TEMP 36.8; O2SAT 97; BMI 23.6
--- NOTE | 2021-10-09 10:01 | PC.NURSE ---
pt being interviewed by hpd at this time.
--- NOTE | 2021-10-09 10:47 | PC.NURSE ---
pt no longer in results pending with pd. pt left the hospital.
== END 2021-10-09 10:48 | disposition left against medical advice (07) ==
PROVIDERS: Emergency Provider Emergency Medicine
DX: H57.11 Ocular pain, right eye (principal); Z79.01 Long term (current) use of anticoagulants; Z79.899 Other long term (current) drug therapy
CPT/HCPCS: 99281; 99284

== ENCOUNTER 2021-10-15 12:24 | Emergency (ER) | payer MEDICAID, SELFPAY ==
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
[2021-10-15 12:55] VITALS: BP 132/81; PULSE 59; RESP 16; TEMP 36.9; O2SAT 98; BMI 22.9
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
== END 2021-10-15 14:47 | disposition home or self-care (01) ==
PROVIDERS: Emergency Provider Emergency Medicine
DX: S05.11XA Contusion of eyeball and orbital tissues, right eye, initial encounter (principal); H11.31 Conjunctival hemorrhage, right eye; G44.309 Post-traumatic headache, unspecified, not intractable; I25.10 Atherosclerotic heart disease of native coronary artery without angina pectoris; Y04.8XXA Assault by other bodily force, initial encounter; Y93.9 Activity, unspecified; Y92.9 Unspecified place or not applicable; Y99.9 Unspecified external cause status; F17.210 Nicotine dependence, cigarettes, uncomplicated; Z79.899 Other long term (current) drug therapy; Z71.6 Tobacco abuse counseling
CPT/HCPCS: 70450; 70486; 99283; 99284

== ENCOUNTER → 2022-01-27 13:04 | Outpatient (BNVA) | payer MEDICAID, SELFPAY | PROVIDERS: PCP Nurse Practitioner; Referring Provider Nurse Practitioner; Visit Provider Internal Medicine Cardiovascular Disease | DX: I25.10 Atherosclerotic heart disease of native coronary artery without angina pectoris (principal); I10 Essential (primary) hypertension | CPT/HCPCS: 93005; 99212 ==

== ENCOUNTER 2022-02-08 16:18 | Emergency (ER) | payer MEDICAID, SELFPAY ==
--- NOTE | 2022-02-08 | ECG_ITS ---
Test Reason : chest pain Blood Pressure : / mmHG Vent. Rate : 060 BPM Atrial Rate : 060 BPM P-R Int : 148 ms QRS Dur : 088 ms QT Int : 410 ms P-R-T Axes : 038 038 019 degrees QTc Int : 410 ms Normal sinus rhythm Normal ECG When compared with ECG of 06-SEP-2020 20:23, T wave amplitude has increased in Lateral leads Referred By: Generic ED Physician Electronically Signed By:Abdirahman Molina
[2022-02-08 17:02] VITALS: BP 166/94; PULSE 60; RESP 18; TEMP 36.9; O2SAT 98; BMI 22.9
[2022-02-08 17:19] LABS: MANUAL DIFF FLAG NO
[2022-02-08 17:20] LABS: Basophils Percent Auto 0.4 % (0-2); Eosinophils Absolute Auto 0.2 X10*3/uL (0.0-0.4); Eosinophils Percent Auto 2.2 % (0-4); Hematocrit 44.3 % (42.0-52.0); Hemoglobin 14.8 g/dl (14.0-18.0); Imm Gran Abs Auto 0.02 X10*3/uL (0.00-0.03); Imm Gran Pct Auto 0.2 % (0.0-0.4); Lymphocytes Absolute Auto 3.1 X10*3/uL (1.2-4.9); Lymphocytes Percent Auto 34.1 % (20-40); Mean Corpuscular HGB Conc 33.4 g/dl (31.0-36.0); Mean Corpuscular Hemoglobin 30.2 pg (27.0-33.0); Mean Corpuscular Volume 90.4 fL (80.0-98.0); Mean Platelet Volume 10.6 fL (9.4-12.4); Monocytes Absolute Auto 0.8 X10*3/uL (0.1-1.2); Monocytes Percent Auto 8.5 % (2-11); Neutrophils Absolute Auto 4.9 x10*3/uL (2.0-8.3); Neutrophils Percent Auto 54.6 % (45-73); Platelet Count 261 X10*3/uL (160-400); Red Cell Distribution Width 12.4 % (11.0-16.0)
[2022-02-08 17:35] LABS: Anion Gap 12 (12-20); Blood Urea Nitrogen 12 mg/dL (9-16); Calcium 9.5 mg/dL (8.4-10.2); Carbon Dioxide 30 mmol/L (22-29); Chloride 100 mmol/L (96-108); Creatinine Clr Calc Pharmacy 97.5; Estimated Glomerular Filt Rate > 60; Glucose Random 112 mg/dL (60-115); Potassium 3.8 mmol/L (3.3-5.1); Sodium 138 mmol/L (135-145)
[2022-02-08 17:41] LABS: Troponin-I High Sensitivity < 3.5 ng/L (<3.5-35.0)
--- NOTE | 2022-02-08 20:40 | ED_ITS ---
HPI - Chest Pain General Chief Complaint: Chest Pain Stated Complaint: shoulder pain Time Seen by Provider: 02/08/22 20:40 Source: patient Mode of arrival: ambulatory Limitations: no limitations History of Present Illness HPI narrative: Patient status post cardiac stent about 14 months ago on Brilinta and aspirin d oing very well exercise run without any chest pain for last few weeks having left shoulder pain and last 3-4 days having left upper chest pain patient was afraid of this pain as cardiac no nausea no vomiting no shortness of breath pain does not get worse on left arm movement reproducible on palpation no neck pain no paresthesias Related Data Home Medications Medication Instructions Recorded Confirmed nitroglycerin 0.4 mg sublingual mg SUBLINGUAL 09/29/20 01/27/22 tablet Previous Rx's Medication Instructions Recorded aspirin 81 mg chewable tablet 81 mg PO DAILY 90 Days #90 tab 10/06/20 atorvastatin 80 mg tablet (Lipitor) 80 mg PO BEDTIME 90 Days #90 tab 01/28/21 metoprolol succinate 50 mg 50 mg PO DAILY 90 Days #90 tab 01/28/21 tablet,extended release 24 hr ticagrelor 60 mg tablet (Brilinta) 60 mg PO BID #180 tab 01/27/22 tramadol 50 mg tablet 50 mg PO Q6H PRN #20 tab 02/08/22 Allergies Allergy/AdvReac Type Severity Reaction Status Date / Time shellfish derived Allergy Unknown ANAPHYLAXIS Verified 02/08/22 17:02 [SHELLFISH DERIVED] Review of Systems Review of Systems: Yes all other systems are reviewed and are negative PMFSH Past Medical History Medical History ACS (acute coronary syndrome) Asthma CAD (coronary artery disease) Hyperlipidemia No known health problems Surgical History History of appendectomy Stented coronary artery Family History Family History Mother CAD (coronary artery disease) Father Chronic asthma Social History Social History Household Members: Significant Other and Children Housing: Apartment Do you presently have visiting nurse or other home services: No Alcohol intake: current Alcohol intake frequency: a few times a month Patient Tobacco Use Status: Former Tobacco user Quit Date: 2019 Smoked: 30 +/- Substance Use Type: Marijuana Advance Directives: No Advance Directives Information Provided: No service: No Current occupational status: unemployed Physical Exam Vital Signs: Vital Signs: Last Vital Signs Temp 98.3 F 02/08/22 21:51 Pulse 58 02/08/22 21:51 Resp 20 02/08/22 21:51 BP 151/99 H 02/08/22 21:51 Pulse Ox 100 02/08/22 21:51 BMI result Body Mass Index 22.9 Appearance: Alert. Oriented X3. No acute distress. Eyes: No pallor or icterus ENT: Pharynx normal. Oral Mucosa moist Neck: Normal inspection. Neck supple. CVS: Normal heart rate and rhythm. Pulses normal. Respiratory: No respiratory distress. Equal air entry bilateral, no wheezing/rales/rhonchi Abdomen: Soft and nontender. Bowel sounds are present, no mass palpable, no CVA tenderness Skin: Skin warm and dry. Normal skin color. Normal skin turgor. Extremities: No lower extremity edema. No calf tenderness local tenderness at L trapezius area, good range of movement of left shoulder Neuro: Oriented X 3. MDM - Chest Pain Lab Data Attestation: I reviewed the patient's lab results. Result diagrams: 02/08/22 17:14 02/08/22 17:14 Labs: Lab Results 02/08/22 02/08/22 02/08/22 Range/Units 17:14 17:14 17:14 WBC 9.0 (4.8-10.8) X10*3/uL RBC 4.90 (4.60-5.80) X10*6/uL Hgb 14.8 (14.0-18.0) g/dl Hct 44.3 (42.0-52.0) % MCV 90.4 (80.0-98.0) fL MCH 30.2 (27.0-33.0) pg MCHC 33.4 (31.0-36.0) g/dl RDW 12.4 (11.0-16.0) % Plt Count 261 (160-400) X10*3/uL MPV 10.6 (9.4-12.4) fL Immature Gran % (Auto) 0.2 (0.0-0.4) % Neut % (Auto) 54.6 (45-73) % Lymph % (Auto) 34.1 (20-40) % [place] % (Auto) 8.5 (2-11) % Eos % (Auto) 2.2 (0-4) % Baso % (Auto) 0.4 (0-2) % Lymph # (Auto) 3.1 (1.2-4.9) X10*3/uL [place] # (Auto) 0.8 (0.1-1.2) X10*3/uL Eos # (Auto) 0.2 (0.0-0.4) X10*3/uL Baso # (Auto) 0.0 (0.0-0.2) X10*3/uL Abs Immat Gran (auto) 0.02 (0.00-0.03) X10*3/uL Absolute Neuts (auto) 4.9 (2.0-8.3) x10*3/uL Absolute Nucleated RBC 0.000 (0.0-0.012) X10*3/uL Nucleated RBC % (auto) 0.0 (0.0-0.2) /100WBC Sodium 138 (135-145) mmol/L Potassium 3.8 (3.3-5.1) mmol/L Chloride 100 (96-108) mmol/L Carbon Dioxide 30 H (22-29) mmol/L Anion Gap 12 (12-20) BUN 12 (9-16) mg/dL Creatinine 0.93 (0.5-1.4) mg/dL Estim Creat Clear Calc 97.5 Estimated GFR > 60 Random Glucose 112 (60-115) mg/dL Calcium 9.5 (8.4-10.2) mg/dL Troponin I High Sens < 3.5 (<3.5-35.0) ng/L 02/08/22 Range/Units 21:31 WBC (4.8-10.8) X10*3/uL RBC (4.60-5.80) X10*6/uL Hgb (14.0-18.0) g/dl Hct (42.0-52.0) % MCV (80.0-98.0) fL MCH (27.0-33.0) pg MCHC (31.0-36.0) g/dl RDW (11.0-16.0) % Plt Count (160-400) X10*3/uL MPV (9.4-12.4) fL Immature Gran % (Auto) (0.0-0.4) % Neut % (Auto) (45-73) % Lymph % (Auto) (20-40) % [place] % (Auto) (2-11) % Eos % (Auto) (0-4) % Baso % (Auto) (0-2) % Lymph # (Auto) (1.2-4.9) X10*3/uL [place] # (Auto) (0.1-1.2) X10*3/uL Eos # (Auto) (0.0-0.4) X10*3/uL Baso # (Auto) (0.0-0.2) X10*3/uL Abs Immat Gran (auto) (0.00-0.03) X10*3/uL Absolute Neuts (auto) (2.0-8.3) x10*3/uL Absolute Nucleated RBC (0.0-0.012) X10*3/uL Nucleated RBC % (auto) (0.0-0.2) /100WBC Sodium (135-145) mmol/L Potassium (3.3-5.1) mmol/L Chloride (96-108) mmol/L Carbon Dioxide (22-29) mmol/L Anion Gap (12-20) BUN (9-16) mg/dL Creatinine (0.5-1.4) mg/dL Estim Creat Clear Calc Estimated GFR Random Glucose (60-115) mg/dL Calcium (8.4-10.2) mg/dL Troponin I High Sens < 3.5 (<3.5-35.0) ng/L ECG Data ECG #1: Attestation: I personally reviewed and interpreted this ECG as follows: Interpretation: Notes is in the moderate 60 beats per minute normal intervals normal axis impression normal EKG Discharge Plan Discharge Clinical Impression: Chest pain, Musculoskeletal arm pain Patient Disposition: Home, Self-Care Instructions: Chest Pain (ED), Musculoskeletal Pain (ED) Additional Instructions: No chest pain is unlikely from the heart likely musculoskeletal Take tramadol for pain and follow with PCP Prescriptions: New tramadol 50 mg tablet 50 mg PO Q6H PRN (Reason: pain) Qty: 20 0RF No Action aspirin 81 mg tablet,chewable 81 mg PO DAILY 90 Days Qty: 90 3RF metoprolol succinate 50 mg tablet extended release 24 hr 50 mg PO DAILY 90 Days Qty: 90 1RF atorvastatin [Lipitor] 80 mg tablet 80 mg PO BEDTIME 90 Days Qty: 90 1RF nitroglycerin 0.4 mg tablet, sublingual sublingual 0RF Brilinta 60 mg tablet 60 mg PO BID Qty: 180 3RF Interventions: ED Discharge Assessment Last Done: 02/08/22 22:22 Discharge Date/Time: 02/08/22 22:22
[2022-02-08] MEDS: traMADoL HCL 50 MG TABLET PO (21:15)
--- NOTE | 2022-02-08 21:17 | PC.NURSE ---
medicated for pain management and notified Faina Hankins
[2022-02-08 21:51] VITALS: BP 151/99; PULSE 58; RESP 20; TEMP 36.8; O2SAT 100
[2022-02-08 21:57] LABS: Troponin-I High Sensitivity < 3.5 ng/L (<3.5-35.0)
--- NOTE | 2022-02-08 22:19 | PC.NURSE ---
Reviewed discharge instruction with pt and pt verbalized understanding. Notified RN Cr
== END 2022-02-08 22:22 | disposition home or self-care (01) ==
PROVIDERS: Emergency Provider Internal Medicine; PCP Nurse Practitioner
DX: R07.89 Other chest pain (principal); M25.512 Pain in left shoulder; M79.602 Pain in left arm; Z79.899 Other long term (current) drug therapy; Z79.82 Long term (current) use of aspirin; Z87.891 Personal history of nicotine dependence
CPT/HCPCS: 36415; 80048; 84484; 85025; 93005; 99283; 99284

== ENCOUNTER 2022-02-14 17:11 | Emergency (ER) | payer MEDICAID, SELFPAY ==
[2022-02-14 20:03] VITALS: BP 148/84; PULSE 62; RESP 16; TEMP 36.4; O2SAT 98; BMI 22.9
[2022-02-14 21:08] VITALS: BP 122/68; PULSE 58; RESP 16; O2SAT 100
--- NOTE | 2022-02-14 21:25 | ED.EXTPRO ---
HPI - Extremity Problem General Chief complaint: Extremity Injury, Upper Stated complaint: Shoulder and arm pain Time Seen by Provider: 02/14/22 21:25 Source: patient Mode of arrival: ambulatory Limitations: no limitations History of Present Illness HPI Narrative: Patient is a 51 year old male presenting to the emergency department today with left shoulder pain. Patient states that he has been having pain in his left shoulder that radiates into his shoulder with movement, for weeks. Patient states that the shoulder and neck pain is worse when he pushes on it. Patient denies any dizziness, lightheadedness, abdominal pain, nausea, vomiting, fever, chills, blurry vision, double vision, loss of vision, chest pain, difficulty breathing, shortness of breath, back pain, night sweats, pain with urination, increased urinary frequency, increased urinary urgency, blood in his urine or stool, syncope or a near syncopal episode, recent trauma or falls, bowel incontinence, bladder incontinence, bowel retention, bladder retention, or any other complaints at this time. MD Complaint: extremity pain Onset (ago): week(s) Pain Consistency: intermittent Location: left Severity scale (1-10): 3 Quality: dull Relieving factors: nothing Exacerbating factors: range of motion Associated symptoms: denies other symptoms Related Data Home Medications Medication Instructions Recorded Confirmed nitroglycerin 0.4 mg sublingual mg SUBLINGUAL 09/29/20 01/27/22 tablet Previous Rx's Medication Instructions Recorded aspirin 81 mg chewable tablet 81 mg PO DAILY 90 Days #90 tab 10/06/20 atorvastatin 80 mg tablet (Lipitor) 80 mg PO BEDTIME 90 Days #90 tab 01/28/21 metoprolol succinate 50 mg 50 mg PO DAILY 90 Days #90 tab 01/28/21 tablet,extended release 24 hr ticagrelor 60 mg tablet (Brilinta) 60 mg PO BID #180 tab 01/27/22 tramadol 50 mg tablet 50 mg PO Q6H PRN #20 tab 02/08/22 Allergies Allergy/AdvReac Type Severity Reaction Status Date / Time shellfish derived Allergy Unknown ANAPHYLAXIS Verified 02/08/22 17:02 [SHELLFISH DERIVED] Review of Systems Constitutional: Constitutional: Reports no additional constitutional complaints, Denies chills, Denies fever(s) and Denies night sweats Eyes: Eyes: Reports no additional eye complaints, Denies blurry vision, Denies change in vision, Denies diplopia, Denies eye discharge, Denies loss of vision and Denies eye pain ENT: Denies dizziness Cardiovascular: Cardiovascular: Reports no additional cardiovascular complaints, Denies chest pain, Denies lightheadedness, Denies Loss of Consciousness and Denies dyspnea Respiratory: Respiratory: Reports no additional respiratory complaints and Denies dyspnea Gastrointestinal: Gastrointestinal: Reports no additional gastrointestinal complaints, Denies abdominal pain, Denies melena, Denies hematochezia, Denies change in bowel habits and Denies change in stool character Genitourinary: Genitourinary: Reports no additional male genitourinary complaints, Denies hematuria, Denies oliguria, Denies difficulty urinating, Denies dysuria, Denies urinary frequency, Denies urinary hesitancy, Denies urinary incontinence and Denies urinary urgency Musculoskeletal: Musculoskeletal: Reports no additional musculoskeletal complaints, Denies numbness and Denies tingling Comments: left shoulder pain Neurologic: Denies dizziness, Denies loss of vision, Denies numbness and Denies tingling Psychiatric: Psychiatric: Reports no additional psychiatric complaints Endocrine: Endocrine: Reports no additional endocrine complaints Hematologic/Lymphatic: Hematologic/Lymphatic: Reports no additional hematologic/lymphatic complaints Allergic/Immunologic: Allergic/Immunologic: Reports no additional allergic/immunologic complaints FOR[facility]LY [facility], [facility] Past Medical History Attestation statement: The following information was validated with the patient. Source: old records reviewed Medical History ACS (acute coronary syndrome) Asthma CAD (coronary artery disease) Hyperlipidemia No known health problems Surgical History History of appendectomy Stented coronary artery Family History Family History Mother CAD (coronary artery disease) Father Chronic asthma Social History Social History Household Members: Significant Other and Children Housing: Apartment Do you presently have visiting nurse or other home services: No Alcohol intake: current Alcohol intake frequency: a few times a month Patient Tobacco Use Status: Former Tobacco user Quit Date: 2019 Years Smoked: 30 +/- Substance Use Type: Marijuana Advance Directives: No service: No Current occupational status: unemployed Physical Exam Vital Signs: Vital Signs: Last Vital Signs Temp 97.6 F 02/14/22 20:03 Pulse 58 02/14/22 21:08 Resp 16 02/14/22 21:08 BP 122/68 02/14/22 21:08 Pulse Ox 100 02/14/22 21:08 BMI result Body Mass Index 22.9 Const: General: cooperative, no acute distress, alert and awake Nutritional Appearance: well nourished Orientation/consciousness: patient oriented x3 Limitations: no limitations HEENT: Head: Yes normal to inspection and Yes atraumatic Ears: hearing grossly normal bilaterally and external ears normal General nose exam: Normal external nose present, no nasal discharge noted and no epistaxis Face and sinus: Yes normal facial exam, No abrasion and No laceration Mouth: Normal oral and palatal mucosa present, no drooling and no muffled voice Eyes: General: appearance normal, both eyes and all related structures Periorbital: periorbital findings normal Eyelids: Yes eyelids normal Conjunctivae: conjunctivae normal Pupils: Equal, round and reactive pupils present EOM: EOMs intact bilaterally Neck: Neck: Yes normal visual inspection, Yes full ROM and Yes no lymphadenopathy Chest: Chest palpation & inspection: normal inspection of the chest Resp: Effort & Inspection: normal respiratory effort and able to speak in complete sentences Auscultation: clear to auscultation bilaterally Cardio: Rate: regular rate Rhythm: regular rhythm GI: Inspection: Yes normal to inspection Neuro: General: patient oriented x3 and moves all extremities Cranial nerves: Yes Equal, round and reactive pupils present Cognition (Neuro): normal cognition Motor exam (neuro): 5/5 motor strength present throughout Sensory Exam: Normal double simultaneous stimulation for sensation Coordination: [id number] test normal Extrem: General: Yes normal to inspection, Yes full ROM and Yes capillary refill normal Psych: Appearance: grossly normal Mental Status: mental status grossly normal Affect: normal affect Attitude: cooperative Thought process: Normal thought process present Thought content: Normal thought content present Insight: Good insight present (Psych) MDM - Extremity (Nontraumatic) MDM Narrative Medical decision making narrative: Patient is a 51 year old male presenting to the emergency department today with left shoulder pain. Patient's physical exam was unremarkable. I explained my physical exam findings to the patient. I answered all questions asked by the patient. I stressed the importance of the patient taking his medication as prescribed. I stressed the importance of the patient following up with his primary care provider and an orthopedist provider. I stressed the importance of the patient returning to the emergency department immediately if his symptoms were to worsen or if he were to develop any dizziness, shortness of breath, difficulty breathing, chest pain, blurry vision, loss of vision, nausea, vomiting, abdominal pain, fever, chills, back pain, or any other complaints. Patient verbalized agreement and understanding with this treatment plan and discharge. Differential Diagnosis Differential diagnosis: Unlikely gout (rotator cuff injury, cervical radiculopathy) Medical Records Attestation: I reviewed the patient's medical records. Discharge Plan Discharge Clinical Impression: Cervical radiculopathy Patient Disposition: Home, Self-Care Instructions: Cervical Radiculopathy (ED) Additional Instructions: Follow up with your primary care provider and an orthopedist. Return to the emergency department immediately if your symptoms worsen or if you develop any dizziness, shortness of breath, difficulty breathing, chest pain, blurry vision, loss of vision, nausea, vomiting, abdominal pain, fever, chills, back pain, or any other complaints. Prescriptions: No Action aspirin 81 mg tablet,chewable 81 mg PO DAILY 90 Days Qty: 90 3RF metoprolol succinate 50 mg tablet extended release 24 hr 50 mg PO DAILY 90 Days Qty: 90 1RF atorvastatin [Lipitor] 80 mg tablet 80 mg PO BEDTIME 90 Days Qty: 90 1RF tramadol 50 mg tablet 50 mg PO Q6H PRN (Reason: pain) Qty: 20 0RF nitroglycerin 0.4 mg tablet, sublingual sublingual 0RF Brilinta 60 mg tablet 60 mg PO BID Qty: 180 3RF Referrals: [facility] [Provider Group] (Follow up with an orthopedist. ) Pita Jarrell [Primary Care Provider] - (Follow up with your PCP. ) Interventions: LWBS Worksheet Last Done: 02/14/22 19:44 ED Discharge Assessment Last Done: 02/14/22 21:52 Discharge Date/Time: 02/14/22 21:54 Print Language: Slovenian
== END 2022-02-14 21:54 | disposition home or self-care (01) ==
PROVIDERS: Emergency Provider Internal Medicine; PCP Nurse Practitioner
DX: M54.12 Radiculopathy, cervical region (principal); J45.909 Unspecified asthma, uncomplicated; I25.10 Atherosclerotic heart disease of native coronary artery without angina pectoris; Z95.5 Presence of coronary angioplasty implant and graft
CPT/HCPCS: 99282; 99284

== ENCOUNTER 2022-03-09 07:15 | Outpatient (REF) | payer MEDICAID, SELFPAY ==
--- NOTE | ~2022-03-09 | XR_ITS ---
EXAMINATION: XR SHOULDER, LEFT CLINICAL INFORMATION: Pain in the left shoulder. COMPARISON: No similar priors. TECHNIQUE: Three views of the left shoulder. FINDINGS: The bones and soft tissues are normal. No fracture. Glenohumeral and acromioclavicular alignment is anatomic with normal joint space. No abnormal soft tissue calcifications. XR/XR shoulder LT min 2V IMPRESSION: Normal left shoulder.
== END 2022-03-09 07:16 | disposition home or self-care (01) ==
LOC: HO.HOSX 07:15
PROVIDERS: Visit Provider Physician Assistant
DX: M75.52 Bursitis of left shoulder (principal)
CPT/HCPCS: 73030; 99202

== ENCOUNTER 2022-05-02 17:00 | Outpatient (RCR) | payer MEDICAID, SELFPAY ==
--- NOTE | 2022-04-07 16:51 | MHC.PT.PR ---
[facility] [place] Office [place] Office [address] [address] [phone] F: [phone] F: [phone] F: [phone] F: [phone] Physical Therapy Progress Note Diagnosis: bursitis of L shoulder Date of Surgery: n/a Date of Evaluation: 04/07/22 Treatments to Date: 1 Cancellations to Date: No Shows to Date: Subjective: L shoulder pain Pain Score and Location: 0 Objective Measures: please refer to eval Assessment: Patient is a 51 year old male presenting to PT with complaints of pain in his L shoulder. Pt reports onset of pain began about 2 months ago due to lifting weights. He presents today with impairments in pain, posture, shoulder ROM, and strength. 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 Pt expresses senior care goal of reducing pain, and is motivated to work towards this in PT. Clinical presentation today is most consistent with signs and sx associated with L shoulder pain likely due to overuse and pt will benefit from skilled PT to address the following problems and impairments noted upon evaluation: pain, posture, shoulder ROM, and strength. These problems limit the patient with the following functional activities: lifting, reaching, work. The prescribed treatment plan of care is medically necessary. Co-morbidities of CAD, ACS, hx heart attack, on blood thinners were identified and taken into considerations of plan of care. Pt was educated on HEP, role of PT, prognosis, POC. PT Plan: Frequency and Duration: The patient will be seen 2 x week x 4 weeks Treatment Plan: Therapeutic Exercise Dynamic Therapeutic Activities Neuromuscular Re-ed Manual Therapies Joint Mobilization Taping Gait Home Exercise Program Patient Education Hot or Cold Pack Reviewed/ Agreed with Student Documentation: Therapist: Thank you once again for your referral.
--- NOTE | 2022-05-05 17:05 | MHC.PT.DC ---
[facility] [place] Office [place] Office [place] Office [address] [place] [address] [phone] F: [phone] F: [phone] F: [phone] F: [phone] Physical Therapy Discharge Report Diagnosis: bursitis of L shoulder Date of Surgery: n/a Date of Evaluation: 04/07/22 Date of Discharge: 05/05/22 Treatments to Date: 8 Cancellations to Date: 0 No Shows to Date: 1 Discharge Status: Improved Function Patient Elected to Stop Recommend MD Follow-up Discharge Summary: Pt presented to final appointment requesting to cancel it and be d/c. States something does not feel right in his shoulder and he would like an MRI. Advised to follow up with ortho regarding his concerns and he verbalized understanding. Electronically signed by: Anna Mcguire, PT, DPT, ATC Please sign and return to therapist. Thank you for your referral.
== END 2022-05-05 17:05 | disposition home or self-care (01) ==
LOC: HO.PTCHIC 17:00
PROVIDERS: PCP Nurse Practitioner; Visit Provider Physician Assistant
DX: M75.52 Bursitis of left shoulder (principal)
CPT/HCPCS: 97110; 97140; 97161

== ENCOUNTER 2022-05-13 18:56 | Outpatient (REF) | payer MEDICAID, SELFPAY ==
--- NOTE | ~2022-05-13 | MR_ITS ---
EXAMINATION: MRI LEFT SHOULDER WITHOUT CONTRAST CLINICAL INFORMATION: Left shoulder pain COMPARISON: Radiographs 03/09/2022 TECHNIQUE: MRI of the shoulder without contrast is performed on a 1.5 Pamela high-field scanner. FINDINGS: ROTATOR CUFF: Subscapularis insertional tendinosis. No rotator cuff tear. No muscle atrophy or fatty infiltration. BICEPS: Normal. CORACOACROMIAL ARCH: The undersurface of the acromion is left with no subacromial spur. Widening of the acromioclavicular joint may be due to a remote injury or chronic osteolysis of the distal clavicle. Mild degenerative changes. LABRUM/CAPSULE: Normal. GLENOHUMERAL JOINT/MARROW: Normal. ADDITIONAL FINDINGS: None. MR/MR shoulder LT wo con IMPRESSION: Subscapularis tendinosis. No rotator cuff tear. Mild acromioclavicular osteoarthritis with widening of the joint which may be due to a remote injury or chronic osteolysis of the distal clavicle. No acute abnormality.
== END 2022-05-13 18:57 | disposition home or self-care (01) ==
LOC: HO.MRI 18:56
PROVIDERS: Visit Provider Physician Assistant
DX: S46.002A Unspecified injury of muscle(s) and tendon(s) of the rotator cuff of left shoulder, initial encounter (principal)
CPT/HCPCS: 73221

== ENCOUNTER → 2022-05-25 15:10 | Outpatient (BNVA) | payer MEDICAID, SELFPAY | PROVIDERS: PCP Nurse Practitioner; Visit Provider Physician Assistant | DX: M77.12 Lateral epicondylitis, left elbow (principal); M19.012 Primary osteoarthritis, left shoulder | CPT/HCPCS: 20551; 99212; J1100 ==

== ENCOUNTER 2022-07-30 17:51 | Emergency (ER) | payer MEDICAID, SELFPAY ==
--- NOTE | ~2022-07-30 | CT_ITS ---
EXAMINATION: CT ABDOMEN AND PELVIS WITH CONTRAST CLINICAL INFORMATION: Diffuse abdominal pain with nausea and vomiting COMPARISON: None TECHNIQUE: Multidetector volumetric images were obtained from the superior aspect of the liver through the pubic symphysis following administration 85 mL of Omnipaque 350 intravenous contrast. Sagittal and coronal reformatted images were obtained on the technologist's workstation. Oral contrast: No This CT examination was performed using dose optimization techniques as appropriate, variously including the following: *Automated exposure control *Adjustment of mA and/or kV according to patient size (this includes techniques or standardized protocols for targeted exams where dose is matched to indication/reason for exam; i.e. extremities or head) *Use of iterative reconstruction technique DLP: 440 mGy-cm FINDINGS: LUNG BASES: The visualized lung bases are unremarkable. Probable left circumflex coronary stent, not fully assessed. LIVER, GALLBLADDER, AND BILIARY TREE: Mild diffuse hepatic hypoattenuation/steatosis. No liver lesion. No biliary ductal dilation. The gallbladder is unremarkable with no evidence of radiopaque gallstones, gallbladder wall thickening, or obvious pericholecystic inflammatory changes. PANCREAS: Unremarkable. SPLEEN: Unremarkable. ADRENAL GLANDS: Unremarkable. KIDNEYS AND URETERS: The kidneys are normal in size, shape, and attenuation. No hydronephrosis, hydroureter, or calculi seen. No perinephric stranding. BLADDER: Prominently distended. No bladder wall thickening. GASTROINTESTINAL TRACT: Very mild diverticulosis of the descending and sigmoid colon. No evidence of acute diverticulitis. No dilated bowel loops. No bowel wall thickening. Appendix is not discretely visualized. No inflammatory change at the cecal base. No ascites or free air. ABDOMINAL WALL: No significant hernia is appreciated. LYMPH NODES: No lymphadenopathy. VASCULAR: Normal caliber abdominal aorta mild atherosclerotic vascular calcifications. PELVIC VISCERA: Unremarkable. OSSEOUS STRUCTURES: No acute fracture or suspicious osseous lesion. Multilevel degenerative disc disease. CT/CT abdomen pelvis w IV con IMPRESSION: 1. No acute intra-abdominal process identified. 2. Mild hepatic steatosis.
[2022-07-30 17:58] VITALS: BP 140/70; PULSE 96; O2SAT 98
[2022-07-30 18:03] VITALS: BP 174/103; PULSE 99; RESP 22; TEMP 36.6; O2SAT 96; BMI 23.6
[2022-07-30 18:06] LABS: Glucose, Whole Blood 94 mg/dL (60-115)
--- OUTSIDE RECORDS SUMMARY | 2022-07-30 18:19 | XMS_ITS | Continuity of Care Document ---
:1970 Author Organization [facility] Address [address] [place] [id number]- Care Team Providers Name Role Phone Not on Staff, PCP Primary Care Physician Unavailable Encounter [facility] [place] Date(s): 09/22/20 - 11/16/[address] [address]- Encounter Diagnosis Non-ST elevation (NSTEMI) myocardial infarction (Final) - Discharge Disposition: A-D/C Home Attending Physician: Art Gutierrez MD Admitting Physician: Art Gutierrez MD Referring Physician: Art Gutierrez MD Allergies, Adverse Reactions, Alerts Substance Reaction Severity Status shellfish1 Active 1red face, fever, breathing complications Immunizations Given and Recorded Vaccine Date Status Refusal Reason influ virus vac, H1N1, inactive(oldterm)1 12/01/09 Given Not Given Vaccine Date Status Refusal Reason pneumococcal 23-valent vaccine 09/09/20 Not Given P atient Refuses influenza virus vaccine, inactivated 09/09/20 Not Given Patient Refuses 1Admin Note: VIS given, date 07/10/09 Medications aspirin 81 mg oral delayed release tablet 1 tablet = 81 mg, By Mouth, Daily, # 30 tablet, 0 Refills, Maintenance, 09/09/20 11:06:00 EST, CR Tablet, [facility], Partial fill upon patient request if the prescription is for a schedule II opioid drug., 176, cm, 09/09/20 7:30:00 EST,... Start Date: 09/09/20 Status: OrderedLipitor 80 mg oral tablet 1 tablet = 80 mg, By Mouth, Daily at bedtime, # 30 tablet, 0 Refills, Maintenance, 09/09/20 11:06:00EST, Tablet, [facility], Partial fill upon patient request if the prescription is for a schedule II opioid drug., 176, cm, 09/09/20 7:30... Start Date: 09/09/20 Status: Orderedmetoprolol succinate 50 mg oral capsule, extended release 1 capsule = 50 mg, By Mouth, Daily, # 30 capsule, 0 Refills, Maintenance, 09/09/20 11:06:00 EST, ER Capsule, [facility], Partial fill upon patient request if the prescription is for a schedule II opioid drug., 176, cm, 09/09/20 7:30:00 E... Start Date: 09/09/20 Status: Orderednitroglycerin 0.4 mg sublingual tablet 1 tablet = 0.4 mg, Sublingual, Every 5 minutes, PRN Chest Pain, # 100 tablet, 0 Refills, Maintenance, 09/09/20 11:06:00 EST, Tablet, [facility], Partial fill upon patient request if the prescription is for a schedule II opioid drug., 176... Start Date: 09/09/20 Status: OrderedPlavix 75 mg oral tablet 75 mg, 1, tablet, By Mouth, Daily, # 90 tablet, Refills 0, Tot. Refills 0, Maintenance, 09/09/20 11:24:00 EST, Route to Pharmacy Electronically, [facility], Partial fill upon patient request if the prescription is for a schedule II opioi... Start Date: 09/09/20 Status: Ordered Problem List Condition Effective Dates Status Health Status Informant Blood pressure elevated without Active history of HTN(Confirmed) Social History Social History Type Response Tobacco Use: 4 or less cigarettes(le ss than 1/4 pack)/day in last 30 days. Sex
--- OUTSIDE RECORDS SUMMARY | 2022-07-30 18:19 | XMS_ITS | Continuity of Care Document ---
:1970 Author Organization [facility] Address [address] [place] [id number]- Care Team Providers Name Role Phone Chrystal CHONG, Pita Godwin Primary Care Physician Encounter [facility] [place] Date(s): 08/12/21 - 09/11/[address] [address] Attending Physician: AdmArsalan tong Admitting Physician: Admtr, Ar8 Referring Physician: Admtr, Ar8 Allergies, Adverse Reactions, Alerts Substance Reaction Severity [...] Refills, Maintenance, 09/09/20 11:06:00 EST, CR Tablet, [facility], Partial fill upon patient request if the prescription is for a schedule II opioid drug., 176, cm, 09/09/20 7:30:00 EST,... Start Date: 09/09/20 Status: OrderedLipitor 80 mg oral tablet 1 tablet = 80 mg, By Mouth, Daily at bedtime, # 30 tablet, 0 Refills, Maintenance, 09/09/20 11:06:00EST, Tablet, [facility], Partial fill upon patient request if the prescription is for a schedule II opioid drug., 176, cm, 09/09/20 7:30... Start Date: 09/09/20 Status: Orderedmetoprolol succinate 50 mg oral capsule, extended release 1 capsule = 50 mg, By Mouth, Daily, # 30 capsule, 0 Refills, Maintenance, 09/09/20 11:06:00 EST, ER Capsule, [facility], Partial fill upon patient request if the prescription is for a schedule II opioid drug., 176, cm, 09/09/20 7:30:00 E... Start Date: 09/09/20 Status: Orderednitroglycerin 0.4 mg sublingual tablet 1 tablet = 0.4 mg, Sublingual, Every 5 minutes, PRN Chest Pain, # 100 tablet, 0 Refills, Maintenance, 09/09/20 11:06:00 EST, Tablet, [facility], Partial fill upon patient request if the prescription is for a schedule II opioid drug., 176... Start Date: 09/09/20 Status: OrderedPlavix 75 mg oral tablet 75 mg, 1, tablet, By Mouth, Daily, # 90 tablet, Refills 0, Tot. Refills 0, Maintenance, 09/09/20 11:24:00 EST, Route to Pharmacy Electronically, [facility], Partial fill upon patient request [...]
--- OUTSIDE RECORDS SUMMARY | 2022-07-30 18:19 | XMS_ITS | Continuity of Care Document ---
:[address] [facility] Address [address] [place] [address]- Care Team Providers Name Role Phone Chrystal CHONG, Pita Godwin Primary Care Physician Encounter [facility] [place] Date(s): 12/06/21 - 01/05/[address] [id number] Attending Physician: Arsalan Read Admitting Physician: AdmArsalan tong Referring Physician: AdmtrArsalan Allergies, Adverse Reactions, Alerts Substance Reaction Severity [...] Refills, Maintenance, 09/09/20 11:06:00 EST, CR Tablet, [facility], Partial fill upon patient request if the prescription is for a schedule II opioid drug., 176, cm, 09/09/20 7:30:00 EST,... Start Date: 09/09/20 Status: OrderedLipitor 80 mg oral tablet 1 tablet = 80 mg, By Mouth, Daily at bedtime, # 30 tablet, 0 Refills, Maintenance, 09/09/20 11:06:00EST, Tablet, [facility], Partial fill upon patient request if the prescription is for a schedule II opioid drug., 176, cm, 09/09/20 7:30... Start Date: 09/09/20 Status: Orderedmetoprolol succinate 50 mg oral capsule, extended release 1 capsule = 50 mg, By Mouth, Daily, # 30 capsule, 0 Refills, Maintenance, 09/09/20 11:06:00 EST, ER Capsule, [facility], Partial fill upon patient request if the prescription is for a schedule II opioid drug., 176, cm, 09/09/20 7:30:00 E... Start Date: 09/09/20 Status: Orderednitroglycerin 0.4 mg sublingual tablet 1 tablet = 0.4 mg, Sublingual, Every 5 minutes, PRN Chest Pain, # 100 tablet, 0 Refills, Maintenance, 09/09/20 11:06:00 EST, Tablet, [facility], Partial fill upon patient request if the prescription is for a schedule II opioid drug., 176... Start Date: 09/09/20 Status: OrderedPlavix 75 mg oral tablet 75 mg, 1, tablet, By Mouth, Daily, # 90 tablet, Refills 0, Tot. Refills 0, Maintenance, 09/09/20 11:24:00 EST, Route to Pharmacy Electronically, [facility], Partial fill upon patient [...]
--- OUTSIDE RECORDS SUMMARY | 2022-07-30 18:19 | XMS_ITS | Continuity of Care Document ---
:[address] [facility] Address [address] [place] [address]- Care Team Providers Name Role Phone Not on Staff, PCP Primary Care Physician Unavailable Encounter [facility] Date(s): 11/02/20 - 12/02/[address] [address] Attending Physician: Arsalan Read Admitting Physician: Arsalan Read Referring Physician: AdmtrArsalan Allergies, Adverse Reactions, Alerts [...] Refills, Maintenance, 09/09/20 11:06:00 EST, CR Tablet, [facility], Partial fill upon patient request if the prescription is for a schedule II opioid drug., 176, cm, 09/09/20 7:30:00 EST,... Start Date: 09/09/20 Status: OrderedLipitor 80 mg oral tablet 1 tablet = 80 mg, By Mouth, Daily at bedtime, # 30 tablet, 0 Refills, Maintenance, 09/09/20 11:06:00EST, Tablet, [facility], Partial fill upon patient request if the prescription is for a schedule II opioid drug., 176, cm, 09/09/20 7:30... Start Date: 09/09/20 Status: Orderedmetoprolol succinate 50 mg oral capsule, extended release 1 capsule = 50 mg, By Mouth, Daily, # 30 capsule, 0 Refills, Maintenance, 09/09/20 11:06:00 EST, ER Capsule, [facility], Partial fill upon patient request if the prescription is for a schedule II opioid drug., 176, cm, 09/09/20 7:30:00 E... Start Date: 09/09/20 Status: Orderednitroglycerin 0.4 mg sublingual tablet 1 tablet = 0.4 mg, Sublingual, Every 5 minutes, PRN Chest Pain, # 100 tablet, 0 Refills, Maintenance, 09/09/20 11:06:00 EST, Tablet, [facility], Partial fill upon patient request if the prescription is for a schedule II opioid drug., 176... Start Date: 09/09/20 Status: OrderedPlavix 75 mg oral tablet 75 mg, 1, tablet, By Mouth, Daily, # 90 tablet, Refills 0, Tot. Refills 0, Maintenance, 09/09/20 11:24:00 EST, Route to Pharmacy Electronically, [facility], Partial fill upon patient [...]
--- OUTSIDE RECORDS SUMMARY | 2022-07-30 18:19 | XMS_ITS | Continuity of Care Document ---
:1970 Author Organization [facility] Address [address] [place] [id number]- Care Team Providers Name Role Phone Not on Staff, PCP Primary Care Physician Unavailable En[place] [facility] [place] 10/27/20 - 12/02/[address] [address] Attending Physician: Lauren Barahona NP Admitting Physician: Lauren Barahona NP Referring Physician: Lauren Barahona NP Allergies, Adverse Reactions, Alerts Substance Reaction Severity [...] Refills, Maintenance, 09/09/20 11:06:00 EST, CR Tablet, [facility], Partial fill upon patient request if the prescription is for a schedule II opioid drug., 176, cm, 09/09/20 7:30:00 EST,... Start Date: 09/09/20 Status: OrderedLipitor 80 mg oral tablet 1 tablet = 80 mg, By Mouth, Daily at bedtime, # 30 tablet, 0 Refills, Maintenance, 09/09/20 11:06:00EST, Tablet, [facility], Partial fill upon patient request if the prescription is for a schedule II opioid drug., 176, cm, 09/09/20 7:30... Start Date: 09/09/20 Status: Orderedmetoprolol succinate 50 mg oral capsule, extended release 1 capsule = 50 mg, By Mouth, Daily, # 30 capsule, 0 Refills, Maintenance, 09/09/20 11:06:00 EST, ER Capsule, [facility], Partial fill upon patient request if the prescription is for a schedule II opioid drug., 176, cm, 09/09/20 7:30:00 E... Start Date: 09/09/20 Status: Orderednitroglycerin 0.4 mg sublingual tablet 1 tablet = 0.4 mg, Sublingual, Every 5 minutes, PRN Chest Pain, # 100 tablet, 0 Refills, Maintenance, 09/09/20 11:06:00 EST, Tablet, [facility], Partial fill upon patient request if the prescription is for a schedule II opioid drug., 176... Start Date: 09/09/20 Status: OrderedPlavix 75 mg oral tablet 75 mg, 1, tablet, By Mouth, Daily, # 90 tablet, Refills 0, Tot. Refills 0, Maintenance, 09/09/20 11:24:00 EST, Route to Pharmacy Electronically, [facility], Partial fill upon patient [...]
--- OUTSIDE RECORDS SUMMARY | 2022-07-30 18:19 | XMS_ITS | Continuity of Care Document ---
:1970 Author Organization [facility] Address [address] [place] [id number]- Care Team Providers Name Role Phone Chrystal CHONG, Pita Godwin Primary Care Physician [place] [facility] [place] 09/11/[address] [address] Attending Physician: Chrystal CHONG, Pita Godwin Admitting Physician: Chrystal CHONG, Pita Godwin Referring Physician: Chrystal CHONG, Pita Godwin Allergies, Adverse Reactions, Alerts Substance Reaction Severity [...] Refills, Maintenance, 09/09/20 11:06:00 EST, CR Tablet, [facility], Partial fill upon patient request if the prescription is for a schedule II opioid drug., 176, cm, 09/09/20 7:30:00 EST,... Start Date: 09/09/20 Status: OrderedLipitor 80 mg oral tablet 1 tablet = 80 mg, By Mouth, Daily at bedtime, # 30 tablet, 0 Refills, Maintenance, 09/09/20 11:06:00EST, Tablet, [facility], Partial fill upon patient request if the prescription is for a schedule II opioid drug., 176, cm, 09/09/20 7:30... Start Date: 09/09/20 Status: Orderedmetoprolol succinate 50 mg oral capsule, extended release 1 capsule = 50 mg, By Mouth, Daily, # 30 capsule, 0 Refills, Maintenance, 09/09/20 11:06:00 EST, ER Capsule, [facility], Partial fill upon patient request if the prescription is for a schedule II opioid drug., 176, cm, 09/09/20 7:30:00 E... Start Date: 09/09/20 Status: Orderednitroglycerin 0.4 mg sublingual tablet 1 tablet = 0.4 mg, Sublingual, Every 5 minutes, PRN Chest Pain, # 100 tablet, 0 Refills, Maintenance, 09/09/20 11:06:00 EST, Tablet, [facility], Partial fill upon patient request if the prescription is for a schedule II opioid drug., 176... Start Date: 09/09/20 Status: OrderedPlavix 75 mg oral tablet 75 mg, 1, tablet, By Mouth, Daily, # 90 tablet, Refills 0, Tot. Refills 0, Maintenance, 09/09/20 11:24:00 EST, Route to Pharmacy Electronically, [facility], Partial fill upon patient [...]
--- OUTSIDE RECORDS SUMMARY | 2022-07-30 18:19 | XMS_ITS | Continuity of Care Document ---
:1970 Author Organization [facility] Address [address] [place] [id number]- Care Team Providers Name Role Phone Myra ROBERTSON, Jared Lacy Primary Care Physician Encounter [facility] – [place] Date(s): 11/18/19 - 11/28/[address] [address]- [facility] Attending Physician: Arsalan Read Admitting Physician: Arsalan Read Referring Physician: AdmtrArsalan Allergies, Adverse Reactions, Alerts Substance Reaction Severity Status NKA Active Immunizations Given and Recorded Vaccine Date Status Refusal Reason influ virus vac, H1N1, inactive(oldterm)1 12/01/09 Given 1Admin Note: VIS given, date 07/10/09 Medications econazole topical 1% cream See Instructions, 85, Gm, 0, 1, 10/29/08 9:40:35, 10/23/08 16:56:05, APLLY TO AFFECTED AREAS OF FEETTWICE PER DAY., Print CHRISTIE Number, ADS OPPTHS, Constant Indicator Start Date: 10/23/08 Status: Ordered
--- NOTE | 2022-07-30 18:22 | ED.NAVMDI ---
HPI - Nausea/Vomiting/Diarrhea General Chief complaint: Nausea/Vomiting/Diarrhea Stated complaint: n/v Time Seen by Provider: 07/30/22 18:00 Source: patient Mode of arrival: ambulatory Limitations: no limitations History of Present Illness HPI Narrative: This is a 51-year-old male past medical history significant for hypertension, hyperlipidemia, coronary artery disease, presenting to the emergency department with nausea, vomiting and diffuse abdominal pain since this morning. Patient reports that yesterday he was drinking more than usual, he reports he had 8 beers yesterday and was smoking marijuana last night to calm him down. He reports that he has vomited more times than he can count, reports vomiting of bile like substance. He tells me has not been able to eat or drink. Tells me this is never happened to him before. No changes in diatary habits, no sick contacts. Denies fevers, chills, chest pain, shortness of breath, diarrhea, changes in urination, headache, dizziness, weakness, vision changes. MD elicited complaint: nausea, vomiting and abdominal pain Related Data Home Medications Medication Instructions Recorded Confirmed nitroglycerin 0.4 mg sublingual mg sublingual 09/29/20 01/27/22 tablet Previous Rx's Medication Instructions Recorded aspirin 81 mg chewable tablet 81 mg PO DAILY 90 days #90 tabs 10/06/20 metoprolol succinate 50 mg 50 mg PO DAILY #90 tabs 03/28/22 tablet,extended release 24 hr atorvastatin 80 mg tablet (Lipitor) 80 mg PO BEDTIME 90 days #90 tabs 04/01/22 ticagrelor 60 mg tablet (Brilinta) 60 mg PO BID #180 tabs 04/01/22 ondansetron 4 mg disintegrating 4 mg PO Q6H PRN nausea and 07/30/22 tablet vomiting #14 tabs Allergies Allergy/AdvReac Type Severity Reaction Status Date / Time shellfish derived Allergy Unknown ANAPHYLAXIS Verified 05/25/22 15:14 [SHELLFISH DERIVED] Review of Systems Review of Systems: Constitutional : No Weight loss, No Fever, No Chills, No Fatigue, No Malaise ENT/Mouth : No sore throat, No Rhinorrhea Eyes: No Eye Pain, No Swelling, No Redness Cardiovascular : No Chest Pain, No SOB, No Dyspnea on Exertion, No Orthopnea, No Edema, No Palpitations Respiratory : No Cough, No Sputum, No Wheezing Gastrointestinal : + Nausea, + Vomiting, No Diarrhea, No Constipation, + abdominal Pain, No Hematochezia, No Melena Genitourinary : No Dysuria, No Urinary Frequency, No Hematuria, Musculoskeletal : No joint pain, No Myalgias, No Joint Swelling Skin : No Skin Lesions, No rash Neuro : No Weakness, No Numbness, No Dizziness, No Headache Psych : No Anxiety/Panic, No Depression All other systems reviewed and are negative Yes all other systems are reviewed and are negative [facility] Past Medical History Attestation statement: The following information was validated with the patient. Source: old records reviewed and nursing notes reviewed Medical History ACS (acute coronary syndrome) Asthma CAD (coronary artery disease) Hyperlipidemia No known health problems Surgical History History of appendectomy Stented coronary artery Family History Family History Mother CAD (coronary artery disease) Father Chronic asthma Social History Social History Household Members: Significant Other and Children Housing: Apartment Do you presently have visiting nurse or other home services: No Alcohol intake: current Alcohol intake frequency: a few times a month Patient Tobacco Use Status: Former Tobacco user Quit Date: 2019 Years Smoked: 30 +/- Substance Use Type: Marijuana Advance Directives: No Advance Directives Information Provided: Yes service: No Current occupational status: unemployed Current occupation: rt hand Physical Exam Vital Signs: Vital Signs: Last Vital Signs Temp 97.8 F 07/30/22 18:03 Pulse 101 H 07/30/22 19:17 Resp 18 07/30/22 19:17 BP 169/98 H 07/30/22 19:17 Pulse Ox 100 07/30/22 19:17 O2 Del Method 07/30/22 19:17 BMI result Body Mass Index 23.6 Patient's blood pressure elevated however he is actively vomiting when blood pressure was taken. Appearance: Alert.? Oriented X3.? No acute distress.? Patient vomiting and dry heaving throughout my physical exam. Head: Normocephalic, atraumatic, no step-offs or deformities Eyes: Pupils equal, round and reactive to light.? ENT: Pharynx normal.? Dry mucous membranes Neck: Normal inspection.? Neck supple.? CVS: Normal heart rate and rhythm.? Pulses normal.? Respiratory: No respiratory distress.? Breath sounds normal.? Abdomen: Soft and diffusely tender abdomen with normoactive bowel sounds.? Skin: Skin warm and dry.? Normal skin color.? Normal skin turgor.? Extremities: No lower extremity edema.? No calf ttp. 5/5 strength to bilateral upper and lower extremities Neuro: Oriented X 3.? No motor deficit.? No sensory deficit. CN 2-12 intact Course Reevaluation(s) Reevaluation #1: Physical examination with noted leukocytosis likely reactive from active nausea and vomiting. Chemistry with no acute electrolyte abnormalities requiring intervention. Patient is noted to have an elevated anion gap likely secondary to ethanol. Total bilirubin and transaminases slightly elevated CT of the abdomen pelvis ordered at this time. Lipase within normal limits not consistent with pancreatitis. Total creatinine kinase within normal limits no sign of rhabdo. Ethanol level negative. COVID negative. Urine, urine toxicology and CT of the abdomen and pelvis pending. Time: 19:14 Reevaluation #2: CT of the abdomen and pelvis with no acute intra-abdominal process identified. Mild hepatic steatosis. Urine clean. Urine toxicology positive for cocaine and marijuana, likely that this is cyclic vomiting or viral infection. Patient has not been vomiting since given medications. Resting comfortably. Will do a p.o. challenge as long as patient can tolerate p.o. he will be discharged home. Time: 20:29 Reevaluation #3: Patient tolerating p.o.. At this time will be discharged home. Time: 20:31 MDM - Nausea/Vomiting/Diarrhea MDM Narrative Medical decision making narrative: 1800 51-year-old male presents with nausea, vomiting, diffuse abdominal pain status post heavy drinking last night and marijuana use. Physical examination with a diffusely tender abdomen. Elevated blood pressure secondary to patient vomiting while blood pressure being taken. Likely cyclic vomiting or pancreatitis. Unlikely acute abdomen, appendicitis, cholecystitis, diverticulitis or bowel per. History and physical exam not consistent with small-bowel or large-bowel obstruction. Plan at this time is to obtain basic labs, urine, MARRUFO, ethanol level, CT of the abdomen and pelvis. Medical Records Attestation: I reviewed the patient's medical records. Lab Data Attestation: I reviewed the patient's lab results. Result diagrams: 07/30/22 18:24 07/30/22 18:24 Labs: Lab Results 07/30/22 07/30/22 07/30/22 Range/Units 18:02 18:24 18:24 WBC 19.9 H (4.8-10.8) X10*3/uL RBC 5.43 (4.60-5.80) X10*6/uL Hgb 16.6 (14.0-18.0) g/dl Hct 49.0 (42.0-52.0) % MCV 90.2 (80.0-98.0) fL MCH 30.6 (27.0-33.0) pg MCHC 33.9 (31.0-36.0) g/dl RDW 12.7 (11.0-16.0) % Plt Count 279 (160-400) X10*3/uL MPV 10.5 (9.4-12.4) fL Immature Gran % (Auto) 0.5 H (0.0-0.4) % Neut % (Auto) 83.3 H (45-73) % Lymph % (Auto) 7.6 L (20-40) % [place] % (Auto) 8.1 (2-11) % Eos % (Auto) 0.2 (0-4) % Baso % (Auto) 0.3 (0-2) % Lymph # (Auto) 1.5 (1.2-4.9) X10*3/uL [place] # (Auto) 1.6 H (0.1-1.2) X10*3/uL Eos # (Auto) 0.0 (0.0-0.4) X10*3/uL Baso # (Auto) 0.1 (0.0-0.2) X10*3/uL Abs Immat Gran (auto) 0.09 H (0.00-0.03) X10*3/uL Absolute Neuts (auto) 16.6 H (2.0-8.3) x10*3/uL Absolute Nucleated RBC 0.000 (0.0-0.012) X10*3/uL Nucleated RBC % (auto) 0.0 (0.0-0.2) /100WBC Sodium 142 (135-145) mmol/L Potassium 4.1 (3.3-5.1) mmol/L Chloride 103 (96-108) mmol/L Carbon Dioxide 16 L (22-29) mmol/L Anion Gap 27 H (12-20) BUN 16 (9-16) mg/dL Creatinine 0.99 (0.5-1.4) mg/dL Estim Creat Clear Calc 89.2 Estimated GFR > 60 POC Glucose 94 (60-115) mg/dL Random Glucose 117 H (60-115) mg/dL Calcium 10.2 D (8.4-10.2) mg/dL Magnesium 1.9 (1.6-2.6) mg/dL Total Bilirubin 1.5 H (0.0-1.0) mg/dL AST 39 H (5-37) U/L ALT 57 H (0-40) U/L Alkaline Phosphatase 57 (39-117) U/L Total Creatine Kinase 144 (38-174) U/L Total Protein 8.2 H (6.5-8.0) g/dL Albumin 4.9 (3.5-5.0) g/dL Lipase 27 (8-78) U/L Urine Color Urine Appearance Urine pH (5.0-9.0) Ur Specific [place] (1.005-1.025) Urine Protein (Neg-Trace) mg/dL Urine Glucose (UA) (Negative) mg/dL Urine Ketones (Negative) mg/dL Urine Blood (Negative) Urine Nitrite (Negative) Ur Leukocyte Esterase (Negative) Urine RBC (0-2) /HPF Urine WBC (0-5) /HPF Ur Squamous Epith Cells (0-2) /HPF Urine Bacteria (None Seen) Hyaline Casts (0-2) /LPF Urine Opiates Screen (Not Detect) Urine Fentanyl Screen (Not Detect) Ur Barbiturates Screen (Not Detect) Ur Phencyclidine Scrn (Not Detect) Ur Amphetamines Screen (Not Detect) U Benzodiazepines Scrn (Not Detect) Urine Cocaine Screen (Not Detect) U Marijuana (THC) Screen (Not Detect) Ethyl Alcohol mg/dL COVID-19 (SHARI) (Negative) COVID-19 Clin Com 07/30/22 07/30/22 07/30/22 Range/Units 18:24 18:24 19:21 WBC (4.8-10.8) X10*3/uL RBC (4.60-5.80) X10*6/uL Hgb (14.0-18.0) g/dl Hct (42.0-52.0) % MCV (80.0-98.0) fL MCH (27.0-33.0) pg MCHC (31.0-36.0) g/dl RDW (11.0-16.0) % Plt Count (160-400) X10*3/uL MPV (9.4-12.4) fL Immature Gran % (Auto) (0.0-0.4) % Neut % (Auto) (45-73) % Lymph % (Auto) (20-40) % [place] % (Auto) (2-11) % Eos % (Auto) (0-4) % Baso % (Auto) (0-2) % Lymph # (Auto) (1.2-4.9) X10*3/uL [place] # (Auto) (0.1-1.2) X10*3/uL Eos # (Auto) (0.0-0.4) X10*3/uL Baso # (Auto) (0.0-0.2) X10*3/uL Abs Immat Gran (auto) (0.00-0.03) X10*3/uL Absolute Neuts (auto) (2.0-8.3) x10*3/uL Absolute Nucleated RBC (0.0-0.012) X10*3/uL Nucleated RBC % (auto) (0.0-0.2) /100WBC Sodium (135-145) mmol/L Potassium (3.3-5.1) mmol/L Chloride (96-108) mmol/L Carbon Dioxide (22-29) mmol/L Anion Gap (12-20) BUN (9-16) mg/dL Creatinine (0.5-1.4) mg/dL Estim Creat Clear Calc Estimated GFR POC Glucose (60-115) mg/dL Random Glucose (60-115) mg/dL Calcium (8.4-10.2) mg/dL Magnesium (1.6-2.6) mg/dL Total Bilirubin (0.0-1.0) mg/dL AST (5-37) U/L ALT (0-40) U/L Alkaline Phosphatase (39-117) U/L Total Creatine Kinase (38-174) U/L Total Protein (6.5-8.0) g/dL Albumin (3.5-5.0) g/dL Lipase (8-78) U/L Urine Color Yellow Urine Appearance Clear Urine pH 5.0 (5.0-9.0) Ur Specific [place] >= 1.030 H (1.005-1.025) Urine Protein Trace (Neg-Trace) mg/dL Urine Glucose (UA) Negative (Negative) mg/dL Urine Ketones 80 (Negative) mg/dL Urine Blood Trace H (Negative) Urine Nitrite Negative (Negative) Ur Leukocyte Esterase Negative (Negative) Urine RBC 0-2 (0-2) /HPF Urine WBC 0-5 (0-5) /HPF Ur Squamous Epith Cells 0-2 (0-2) /HPF Urine Bacteria None Seen (None Seen) Hyaline Casts 0-2 (0-2) /LPF Urine Opiates Screen (Not Detect) Urine Fentanyl Screen (Not Detect) Ur Barbiturates Screen (Not Detect) Ur Phencyclidine Scrn (Not Detect) Ur Amphetamines Screen (Not Detect) U Benzodiazepines Scrn (Not Detect) Urine Cocaine Screen (Not Detect) U Marijuana (THC) Screen (Not Detect) Ethyl Alcohol < 10 mg/dL COVID-19 (SHARI) Negative (Negative) COVID-19 Clin Com See Note 07/30/22 Range/Units 19:21 WBC (4.8-10.8) X10*3/uL RBC (4.60-5.80) X10*6/uL Hgb (14.0-18.0) g/dl Hct (42.0-52.0) % MCV (80.0-98.0) fL MCH (27.0-33.0) pg MCHC (31.0-36.0) g/dl RDW (11.0-16.0) % Plt Count (160-400) X10*3/uL MPV (9.4-12.4) fL Immature Gran % (Auto) (0.0-0.4) % Neut % (Auto) (45-73) % Lymph % (Auto) (20-40) % [place] % (Auto) (2-11) % Eos % (Auto) (0-4) % Baso % (Auto) (0-2) % Lymph # (Auto) (1.2-4.9) X10*3/uL [place] # (Auto) (0.1-1.2) X10*3/uL Eos # (Auto) (0.0-0.4) X10*3/uL Baso # (Auto) (0.0-0.2) X10*3/uL Abs Immat Gran (auto) (0.00-0.03) X10*3/uL Absolute Neuts (auto) (2.0-8.3) x10*3/uL Absolute Nucleated RBC (0.0-0.012) X10*3/uL Nucleated RBC % (auto) (0.0-0.2) /100WBC Sodium (135-145) mmol/L Potassium (3.3-5.1) mmol/L Chloride (96-108) mmol/L Carbon Dioxide (22-29) mmol/L Anion Gap (12-20) BUN (9-16) mg/dL Creatinine (0.5-1.4) mg/dL Estim Creat Clear Calc Estimated GFR POC Glucose (60-115) mg/dL Random Glucose (60-115) mg/dL Calcium (8.4-10.2) mg/dL Magnesium (1.6-2.6) mg/dL Total Bilirubin (0.0-1.0) mg/dL AST (5-37) U/L ALT (0-40) U/L Alkaline Phosphatase (39-117) U/L Total Creatine Kinase (38-174) U/L Total Protein (6.5-8.0) g/dL Albumin (3.5-5.0) g/dL Lipase (8-78) U/L Urine Color Urine Appearance Urine pH (5.0-9.0) Ur Specific [place] (1.005-1.025) Urine Protein (Neg-Trace) mg/dL Urine Glucose (UA) (Negative) mg/dL Urine Ketones (Negative) mg/dL Urine Blood (Negative) Urine Nitrite (Negative) Ur Leukocyte Esterase (Negative) Urine RBC (0-2) /HPF Urine WBC (0-5) /HPF Ur Squamous Epith Cells (0-2) /HPF Urine Bacteria (None Seen) Hyaline Casts (0-2) /LPF Urine Opiates Screen Not Detected (Not Detect) Urine Fentanyl Screen Not Detected (Not Detect) Ur Barbiturates Screen Not Detected (Not Detect) Ur Phencyclidine Scrn Not Detected (Not Detect) Ur Amphetamines Screen Not Detected (Not Detect) U Benzodiazepines Scrn Not Detected (Not Detect) Urine Cocaine Screen POSITIVE H (Not Detect) U Marijuana (THC) Screen POSITIVE H (Not Detect) Ethyl Alcohol mg/dL COVID-19 (SHARI) (Negative) COVID-19 Clin Com Critical Care Time Critical Care Time Critical Care Time: No Discharge Plan Discharge Clinical Impression: Abdominal pain, Nausea & vomiting Patient Disposition: Home, Self-Care Instructions: Acute Nausea and Vomiting (ED), Abdominal Pain (ED) Additional Instructions: Take your medications as prescribed. If you were prescribed antibiotics today, it is important that you take your medication to their entirety, do not skip any doses, do not finish them early. Follow-up with your primary care provider this week. Return to the emergency department with new or worsening symptoms. Such as fevers, chills, chest pain, shortness of breath, nausea, vomiting, dizziness, headache, vision changes, lethargy In case of emergency call 911 Your laboratory studies, urine, CT scan all reassuring. Zofran is an antinausea medicine that has been sent to your pharmacy, please take this only as prescribed, taking more than the prescribed dose can lead to cardiac abnormalities. CT/CT abdomen pelvis w IV con IMPRESSION: 1.? No acute intra-abdominal process identified. 2.? Mild hepatic steatosis. ? Prescriptions: New ondansetron 4 mg tablet,disintegrating 4 mg PO Q6H PRN (Reason: nausea and vomiting) Qty: 14 0RF No Action aspirin 81 mg tablet,chewable 81 mg PO DAILY 90 Days Qty: 90 3RF metoprolol succinate 50 mg tablet extended release 24 hr 50 mg PO DAILY Qty: 90 3RF atorvastatin [Lipitor] 80 mg tablet 80 mg PO BEDTIME 90 Days Qty: 90 3RF Brilinta 60 mg tablet 60 mg PO BID Qty: 180 3RF nitroglycerin 0.4 mg tablet, sublingual sublingual Referrals: Physician,Unknown J [Primary Care Provider] - 2 days Stand Alone Forms: Work/School Release
[2022-07-30] MEDS: 0.9 % Sodium Chloride 1,000 ML 999 ML IV ×2 (18:27→20:32)
[2022-07-30] MEDS: ondansetron HCL 4 MG/2 ML VIAL IVPUSH (18:28)
[2022-07-30 18:31] LABS: MANUAL DIFF FLAG NO
[2022-07-30 18:33] LABS: Basophils Absolute Auto 0.1 X10*3/uL (0.0-0.2); Basophils Percent Auto 0.3 % (0-2); Eosinophils Percent Auto 0.2 % (0-4); Hemoglobin 16.6 g/dl (14.0-18.0); Imm Gran Abs Auto 0.09 X10*3/uL (0.00-0.03); Imm Gran Pct Auto 0.5 % (0.0-0.4); Lymphocytes Absolute Auto 1.5 X10*3/uL (1.2-4.9); Lymphocytes Percent Auto 7.6 % (20-40); Mean Corpuscular HGB Conc 33.9 g/dl (31.0-36.0); Mean Corpuscular Hemoglobin 30.6 pg (27.0-33.0); Mean Corpuscular Volume 90.2 fL (80.0-98.0); Mean Platelet Volume 10.5 fL (9.4-12.4); Monocytes Absolute Auto 1.6 X10*3/uL (0.1-1.2); Monocytes Percent Auto 8.1 % (2-11); Neutrophils Absolute Auto 16.6 x10*3/uL (2.0-8.3); Neutrophils Percent Auto 83.3 % (45-73); Platelet Count 279 X10*3/uL (160-400); Red Blood Count 5.43 X10*6/uL (4.60-5.80); Red Cell Distribution Width 12.7 % (11.0-16.0); SCAN SMEAR FLAG 1; White Blood Count 19.9 X10*3/uL (4.8-10.8)
[2022-07-30 18:46] LABS: Ethanol < 10 mg/dL
[2022-07-30 18:50] LABS: Alanine Aminotransferase 57 U/L (0-40); Albumin Level 4.9 g/dL (3.5-5.0); Alkaline Phosphatase 57 U/L (39-117); Anion Gap 27 (12-20); Aspartate Amino Transferase 39 U/L (5-37); Bilirubin Total 1.5 mg/dL (0.0-1.0); Blood Urea Nitrogen 16 mg/dL (9-16); COVID-19 Test Negative (Negative); Calcium 10.2 mg/dL (8.4-10.2); Carbon Dioxide 16 mmol/L (22-29); Chloride 103 mmol/L (96-108); Creatinine Clr Calc Pharmacy 89.2; Estimated Glomerular Filt Rate > 60; Glucose Random 117 mg/dL (60-115); IDNOW Serial# 55D5AD1C; Lipase 27 U/L (8-78); Magnesium 1.9 mg/dL (1.6-2.6); Potassium 4.1 mmol/L (3.3-5.1); Sodium 142 mmol/L (135-145); Total Protein 8.2 g/dL (6.5-8.0)
[2022-07-30] MEDS: iohexoL 350 MG/ML 100 ML INFUS..BTL IV (19:10)
[2022-07-30 19:17] VITALS: BP 169/98; PULSE 101; RESP 18; O2SAT 100
[2022-07-30 19:29] LABS: Appearance Urine Clear; Color Urine Yellow; Glucose Urine UA Negative (Negative); Leukocyte Esterase Urine Negative (Negative); Nitrite Urine Negative (Negative); Specific Gravity - Urine >= 1.030 (1.005-1.025); UMIC TRIGGER UACC YES; Urine Blood Trace (Negative); Urine Ketones 80 mg/dL (Negative); Urine Protein Trace mg/dL (Neg-Trace)
[2022-07-30] MEDS: Morphine Sulfate 2 MG/ML CARTRIDGE IVPUSH (19:29)
--- NOTE | 2022-07-30 19:31 | PC.NURSE ---
pt restless, rolling from side to side on stretcher. states he is in so much pain and has been extremely nauseous. pt medicated with morphine per MD orders. iv fluids running. vital signs updated...call ruelas within reach
[2022-07-30 19:34] LABS: Bacteria Urine None Seen (None Seen); Hyaline Casts Urine 0-2 /LPF (0-2); RBC Urine 0-2 /HPF (0-2); Squamous Epithelial Cell Urine 0-2 /HPF (0-2); WBC Urine 0-5 /HPF (0-5)
[2022-07-30 19:47] LABS: Amphetamine Screen Urine Not Detected (Not Detect); Barbiturates, Urine Not Detected (Not Detect); Benzodiazepines Screen Urine Not Detected (Not Detect); Cannabinoid Screen Urine POSITIVE (Not Detect); Cocaine Screen Urine POSITIVE (Not Detect); Fentanyl, urine Not Detected (Not Detect); Opiate Screen Urine Not Detected (Not Detect); Phencyclidine Screen Urine Not Detected (Not Detect)
[2022-07-30] MEDS: diphenhydrAMINE HCL 50 MG/ML VIAL 25 MG IVPUSH (20:45)
[2022-07-30] MEDS: Metoclopramide HCl 10 MG/2 ML VIAL IVPUSH (20:45)
== END 2022-07-30 21:22 | disposition home or self-care (01) ==
PROVIDERS: Physician Assistant; Emergency Provider Emergency Medicine
DX: R11.2 Nausea with vomiting, unspecified (principal); R10.9 Unspecified abdominal pain; Z20.822 Contact with and (suspected) exposure to COVID-19; I10 Essential (primary) hypertension; E78.5 Hyperlipidemia, unspecified; F12.90 Cannabis use, unspecified, uncomplicated; Z87.891 Personal history of nicotine dependence; Z79.82 Long term (current) use of aspirin; Z79.02 Long term (current) use of antithrombotics/antiplatelets; Z79.899 Other long term (current) drug therapy
CPT/HCPCS: 36415; 74177; 80053; 80307; 81001; 82077; 82550; 82947; 83690; 83735; 85025; 87635; 96361; 96374; 96375; 99283; 99284; J1200; J2270; J2405; J2765; Q9967

== ENCOUNTER → 2022-11-04 10:11 | Outpatient (BNVA) | payer MEDICAID, SELFPAY | PROVIDERS: PCP Nurse Practitioner; Visit Provider Orthopaedic Surgery | DX: M77.12 Lateral epicondylitis, left elbow (principal); M19.012 Primary osteoarthritis, left shoulder | CPT/HCPCS: 99212 ==

== ENCOUNTER 2023-01-13 08:36 | Outpatient (REF) | payer MEDICAID, SELFPAY ==
[2023-01-13 09:44] LABS: Cholesterol 126 mg/dL; HDL Cholesterol 46 mg/dL; LDL Cholesterol Calculated 65 mg/dl; Triglycerides 79 mg/dL
== END 2023-01-13 08:37 | disposition home or self-care (01) ==
LOC: HO.LAB 08:36
PROVIDERS: PCP Nurse Practitioner; Visit Provider Internal Medicine Cardiovascular Disease
DX: E78.5 Hyperlipidemia, unspecified (principal); I25.10 Atherosclerotic heart disease of native coronary artery without angina pectoris
CPT/HCPCS: 36415; 80061

== ENCOUNTER → 2023-01-26 12:17 | Outpatient (BNVA) | payer MEDICAID, SELFPAY | PROVIDERS: PCP Nurse Practitioner; Referring Provider Nurse Practitioner; Visit Provider Internal Medicine Cardiovascular Disease | DX: I25.10 Atherosclerotic heart disease of native coronary artery without angina pectoris (principal); I10 Essential (primary) hypertension; E78.5 Hyperlipidemia, unspecified; Z95.5 Presence of coronary angioplasty implant and graft | CPT/HCPCS: 93005; 99212 ==

== ENCOUNTER 2023-02-20 08:01 | Emergency (ER) | payer MEDICAID, SELFPAY ==
--- NOTE | ~2023-02-20 | XR_ITS ---
EXAMINATION: XR LUMBOSACRAL SPINE CLINICAL INFORMATION: Midline pain. COMPARISON: None available. TECHNIQUE: Three views of the lumbosacral spine. FINDINGS: There is normal lumbar lordosis. The vertebral height and alignment are normal. There is loss of the L1-L2, L4-L5 and L5-S1 disc heights with mild ventral spondylosis. No aggressive lytic or sclerotic process is seen. The paravertebral soft tissues are normal. The SI joints are normal. XR/XR lumbar spine 2-3V IMPRESSION: Mild degenerative disc changes at the L1-L2, L4-L5 and L5-S1 disc levels with mild ventral spondylosis.
[2023-02-20 08:03] VITALS: BP 134/75; PULSE 63; RESP 18; TEMP 36.6; O2SAT 99; BMI 24.1
--- NOTE | 2023-02-20 08:07 | ED.BACK ---
HPI - Back Pain/Injury General Chief Complaint: Back Pain/Injury Stated Complaint: Lower back pain Time Seen by Provider: 02/20/23 08:07 Source: patient Mode of arrival: ambulatory Limitations: no limitations History of Present Illness HPI Narrative: 52 y/o male presents to the ER for evaluation of HTN, HLD, CAD who presents to the ER for evaluation of nontraumatic low back pain for the last 4 days. Patient states the pain in the middle of his lower back, does not radiate. He states it is worse with movement and when trying to sleep. He has been taking Tylenol with minimal relief. 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 He denies any recent falls. He tried to go to work today but was unable to perform his duties due to pain. He denies any urinary or bowel issues. No fever or chills. No history of IVDA. MD elicited complaint: back pain Onset (ago): day(s) (4) Timing: constant Severity: severe Similar Symptoms Previously: No Quality: aching and spasming Location: lumbar spine, right lower back and left lower back Radiation: none Exacerbating factors: movement Relieving factors: immobilization Context: while lifting and turning/twisting Associated symptoms: denies other symptoms Treatments prior to arrival: acetaminophen Work related injury: Yes Related Data Home Medications Medication Instructions Recorded Confirmed nitroglycerin 0.4 mg sublingual mg sublingual 09/29/20 01/26/23 tablet tamsulosin 0.4 mg capsule 0.4 mg PO QAM 01/26/23 01/26/23 Previous Rx's Medication Instructions Recorded aspirin 81 mg chewable tablet 81 mg PO DAILY 90 days #90 tabs 10/06/20 metoprolol succinate 50 mg 50 mg PO DAILY #90 tabs 03/28/22 tablet,extended release 24 hr atorvastatin 80 mg tablet (Lipitor) 80 mg PO BEDTIME 90 days #90 tabs 04/01/22 cyclobenzaprine 10 mg tablet 10 mg PO TID PRN muscle spasm #14 02/20/23 tabs lidocaine 5 % topical patch 1 patch topical DAILY #15 ea 02/20/23 naproxen 500 mg tablet 500 mg PO BID PRN pain #20 tabs 02/20/23 Allergies Allergy/AdvReac Type Severity Reaction Status Date / Time shellfish derived Allergy Unknown ANAPHYLAXIS Verified 02/20/23 08:03 [SHELLFISH DERIVED] Review of Systems Review of Systems: Yes all other systems are reviewed and are negative [facility] Past Medical History Medical History ACS (acute coronary syndrome) Asthma CAD (coronary artery disease) Hyperlipidemia No known health problems Surgical History History of appendectomy Stented coronary artery Family History Family History Mother CAD (coronary artery disease) Father Chronic asthma Social History Social History Household Members: Significant Other and Children Housing: Apartment Do you presently have visiting nurse or other home services: No Alcohol intake: current Alcohol intake frequency: a few times a month Patient Tobacco Use Status: Former Tobacco user Quit Date: 2019 Smoked: 30 +/- Smoked in Last 30 Days: No Use of substances other than those prescribed or required for medical reasons: Yes Substance Use Type: Marijuana Advance Directives: No Advance Directives Information Provided: Yes service: No Current occupational status: unemployed Current occupation: rt hand Physical Exam Vital Signs: Vital Signs: Last Vital Signs Temp 97.8 F 02/20/23 08:03 Pulse 53 02/20/23 10:10 Resp 16 02/20/23 10:10 BP 116/75 02/20/23 10:10 Pulse Ox 99 02/20/23 10:10 O2 Del Method Room Air 02/20/23 10:10 BMI result Body Mass Index 24.1 Appearance: Alert. Oriented X3. No acute distress. Head: normocephalic, atraumatic. Eyes: Pupils equal, round and reactive to light. ENT: Pharynx normal. No tonsillar swelling or exudate. Neck: Normal inspection. Neck supple. CVS: Normal heart rate and rhythm. Pulses normal. Respiratory: No respiratory distress. Breath sounds normal. Abdomen: Soft and nontender. +BS x4 Back: tenderness to the lumbar spine and associated paraspinous muscles, limited flexion of the spine due to pain. +straight leg raise test bilaterally at 45 degrees. Skin: Skin warm and dry. Normal skin color. Normal skin turgor. No rashes. Extremities: No lower extremity edema. No joint swelling. Neuro/psych: Oriented X 3. No motor deficit. No sensory deficit. CN II-XII intact. Normal speech and cognition. Steady gait Medications Administered Discontinued Medications Generic Name Dose Route Start Last Admin Trade Name Guy PRN Reason Stop Dose Admin Acetaminophen 975 mg 02/20/23 08:15 02/20/23 09:02 Acetaminophen 325 Mg Tablet PO 02/20/23 08:16 975 mg ONCE ONE Administration Lidocaine 1 patch 02/20/23 08:15 02/20/23 09:02 Lidocaine 4 % Patch Adh..Patch TRANSDERMA 02/20/23 08:16 1 patch ONCE ONE Administration Protocol Medical Decision Making Medical Decision Making MDM Narrative: A 2-year-old male presents to the ER for evaluation of middle lower back pain that started 4 days ago after heavy lifting. No red flag symptoms of LBP. He had midline tenderness of the lumbar spine so x-ray was done showing degenerative changes. Will treat for lumbar strain and spasm with short course of muscle relaxer, NSAID and lidoderm. confirmed patient is not on anticoagulation, only aspirin. work note provided and he was encouraged to f/u with his PCP. Differential Diagnosis Differential Diagnoses: The differential diagnosis associated with the presentation includes Inflammatory disorders, malignancy, trauma, osteoporosis, nerve root compression, radiculopathy, plexopathy, degenerative disc disease, disc herniation, spinal stenosis, sacroiliac joint dysfunction, facet joint injury, and less likely infection?like abscess or diskitis Independent Interpretation I performed an independent interpretation of an: Plain X-Ray Interpretation: no acute compression fractures or lesions, agree w/ radiology read Radiology Impression Discussion of test interpretation with radiology: I have reviewed the radiologist's reading. Radiologist Impression: ?XR/XR lumbar spine 2-3V IMPRESSION: Mild degenerative disc changes at the L1-L2, L4-L5 and L5-S1 disc levels with mild ventral spondylosis. External Record Review External record reviewed: Outpatient record and Prior outpatient radiology Prescription Management I considered prescription management with: Pain Medication Critical Care Time Critical Care Time Critical Care Time: No Discharge Plan Discharge Clinical Impression: Strain of lumbar region Patient Disposition: Home, Self-Care Instructions: Low Back Strain (ED), Lower Back Exercises (ED) Additional Instructions: Your x-ray today was showed degenerative changes in your spine. Your pain is most likely due to muscle strain and spasm. No bending, lifting or twisting. Use ice several times per day for 20 minutes at a time for the next 48 hours and then change to heat. Take medications as prescribed to help with pain and discomfort. Follow up with your Primary Care Doctor this week. If your pain worsens, if you develop new numbness, tingling, weakness, loss of function or incontinence call 911 or come back to the ER right away for evaluation. ?XR/XR lumbar spine 2-3V IMPRESSION: Mild degenerative disc changes at the L1-L2, L4-L5 and L5-S1 disc levels with mild ventral spondylosis. Prescriptions: New cyclobenzaprine 10 mg tablet 10 mg PO TID PRN (Reason: muscle spasm) Qty: 14 0RF lidocaine 5 % adhesive patch,medicated 1 patch topical DAILY Qty: 15 0RF Rx Instructions: leave on most painful area for up to 12 hrs naproxen 500 mg tablet 500 mg PO BID PRN (Reason: pain) Qty: 20 0RF No Action aspirin 81 mg tablet,chewable 81 mg PO DAILY 90 Days Qty: 90 3RF metoprolol succinate 50 mg tablet extended release 24 hr 50 mg PO DAILY Qty: 90 3RF atorvastatin [Lipitor] 80 mg tablet 80 mg PO BEDTIME 90 Days Qty: 90 3RF nitroglycerin 0.4 mg tablet, sublingual sublingual tamsulosin 0.4 mg capsule 0.4 mg PO QAM Stand Alone Forms: Work/School Release
--- NOTE | 2023-02-20 08:36 | PC.NURSE ---
Addendum entered by Gela Ramon RN 02/20/23 09:06: Pt complaining of 9/10 lower back pain. Pt reports the severe pain started Joey night and has progressively gotten worse. Pt reports that he lifts a lot with his work. Original Note: Pt on stretcher, airway open and patent, no obvious signs of distress, no difficulty/labored breathing, equal chest rise and fall. Pt a&ox4. Skin color normal for ethnicity, warm, and dry. Lung sounds dim both sides, clr and equal bilaterally. Heart sounds normal. Bowel sounds present. Abdomen soft, non-tender. No edema noted. Pt complaining of 910
[2023-02-20] MEDS: Lidocaine 4 % Patch ADH..PATCH 1 PATCH TRANSDERMA (09:02)
[2023-02-20] MEDS: Acetaminophen 325 MG TABLET 975 MG PO (09:02)
[2023-02-20 10:10] VITALS: BP 116/75; PULSE 53; RESP 16; O2SAT 99
== END 2023-02-20 12:19 | disposition home or self-care (01) ==
PROVIDERS: Emergency Provider Student in an Organized Health Care Education/Training Program; PCP Nurse Practitioner
DX: M54.50 Low back pain, unspecified (principal); Z79.899 Other long term (current) drug therapy
CPT/HCPCS: 72100; 99283; 99284

== ENCOUNTER 2023-06-27 07:38 | Emergency (ER) | payer OTHER, SELFPAY ==
[2023-06-27 07:41] VITALS: BP 116/66; PULSE 58; RESP 18; TEMP 36.9; O2SAT 98; BMI 21.9
--- NOTE | 2023-06-27 07:58 | ED.GENADULT ---
HPI - General Adult General Chief complaint: General Medical Stated complaint: Dental Infection Fever Time Seen by Provider: 06/27/23 07:49 Source: patient Mode of arrival: ambulatory Limitations: no limitations History of Present Illness HPI narrative: A 52-year-old male came in for evaluation of dental pain thigh and possible infection. Pain is around the left upper 1st and 2nd molar tooth. Subjective fever, felt nauseous yesterday but today is better. Related Data Home Medications Medication Instructions Recorded Confirmed nitroglycerin 0.4 mg sublingual mg sublingual 09/29/20 01/26/23 tablet tamsulosin 0.4 mg capsule 0.4 mg PO QAM 01/26/23 01/26/23 Previous Rx's Medication Instructions Recorded aspirin 81 mg chewable tablet 81 mg PO DAILY 90 days #90 tabs 10/06/20 cyclobenzaprine 10 mg tablet 10 mg PO TID PRN muscle spasm #14 02/20/23 tabs lidocaine 5 % topical patch 1 patch topical DAILY #15 ea 02/20/23 naproxen 500 mg tablet 500 mg PO BID PRN pain #20 tabs 02/20/23 atorvastatin 80 mg tablet (Lipitor) 80 mg PO BEDTIME 90 days #90 tabs 03/29/23 metoprolol succinate 50 mg 50 mg PO DAILY #90 tabs 03/29/23 tablet,extended release 24 hr amoxicillin 500 mg tablet 500 mg PO BID #14 tabs 06/27/23 Allergies Allergy/AdvReac Type Severity Reaction Status Date / Time shellfish derived Allergy Unknown ANAPHYLAXIS Verified 02/20/23 08:03 [SHELLFISH DERIVED] Review of Systems Review of Systems: All other systems are reviewed and are negative Constitutional: Reports as per HPI and Reports no additional constitutional complaints Eyes: Reports as per HPI and Reports no additional eye complaints Reports system reviewed and no additional complaints, except as documented Cardiovascular: Reports as per HPI and Reports no additional cardiovascular complaints Respiratory: Reports as per HPI and Reports no additional respiratory complaints Gastrointestinal: Reports as per HPI and Reports no additional gastrointestinal complaints Genitourinary: Reports no additional female genitourinary complaints Musculoskeletal: Reports no additional musculoskeletal complaints Skin/Breast: Reports system reviewed and no additional complaints, except as docu Psychiatric: Reports no additional psychiatric complaints Endocrine: Reports no additional endocrine complaints Hematologic/Lymphatic: Reports no additional hematologic/lymphatic complaints Allergic/Immunologic: Reports no additional allergic/immunologic complaints Reports system reviewed and no additional complaints, except as documented and Reports Abnormal speech present [facility] Past Medical History Medical History Hyperlipidemia CAD (coronary artery disease) ACS (acute coronary syndrome) No known health problems Asthma Surgical History History of appendectomy Stented coronary artery Family History Family History Mother CAD (coronary artery disease) Father Chronic asthma Social History Social History Household Members: Significant Other and Children Housing: Apartment Do you presently have visiting nurse or other home services: No Alcohol intake: current Alcohol intake frequency: a few times a month Patient Tobacco Use Status: Former Tobacco user Quit Date: 2019 Smoked: 30 +/- Substance Use Type: Marijuana Advance Directives: No service: No Current occupational status: unemployed Current occupation: rt hand Physical Exam ED Vital Signs: Vital Signs - 24 hr 06/27/23 07:41 Temperature 98.4 F Pulse Rate 58 Respiratory Rate 18 Blood Pressure 116/66 Pulse Oximetry 98 Oxygen Delivery Method Room Air BMI result Body Mass Index 21.9 Vital signs have been reviewed and appear to be correct. Blood pressure elevated. Heart rate normal. Respiratory rate normal. Temperature normal. Oxygen saturation normal. Appearance: Alert. Oriented X3. No acute distress. Head: Normal external exam. Normocephalic. Atraumatic. No Jorge signs noted. No raccoon eyes noted. Dental exam: Tenderness over left upper 2nd molar tooth, tenderness of the gum around it, no fluctuation or discharge. Eyes: PERRLA. EOMI. Conjunctiva and sclera normal. Eyelids normal. ENT: TM's Normal. Pharynx normal. Uvula midline. Moist mucous membranes. No trismus noted. No drooling noted. No muffled voice noted. Neck: Normal inspection. Neck supple. FROM. No adenopathy. Thyroid Normal. No meningeal signs. No neck mass noted. CVS: Normal heart rate and rhythm. Heart sound normal. No murmurs noted. Pulses normal throughout. Respiratory: No respiratory distress. Painless inspiration. Breath sounds normal. No wheezes/rales/rhonchi noted. Chest nontender. No accessory muscle usage noted or decreased air movement noted. Abdomen: Soft and nontender. Bowel sounds normal in all 4 quadrants. No distention noted. No organomegaly noted. No visible injury noted. Back: No CVA tenderness. Full range of motion noted. Skin: Skin warm and dry. Normal skin color. Normal skin turgor. No rashes/lesions/lacerations noted. Extremities: No lower extremity edema. Extremities exhibit normal range of motion. Extremities nontender. Neuro: Oriented X 3. Cranial nerve exam: II-XII are grossly intact No motor deficit. No sensory deficit. Reflexes normal. Course Course Course Narrative: Dental infection start on amoxicillin and ibuprofen if needed patient was instructed to follow-up with his dentist. Medical Decision Making Differential Diagnosis Differential Diagnoses: The differential diagnosis associated with the presentation includes (Dental infections, abscesses, Darryn's angina.) Admission/Observation Consideration of admission/observation: Escalation of care including admission/observation considered Discharge Plan Discharge Clinical Impression: Pain, dental Patient Disposition: Home, Self-Care Instructions: Toothache (ED) Additional Instructions: Follow-up with your dentist in 2-3 days. Prescriptions: New amoxicillin 500 mg tablet 500 mg PO BID Qty: 14 0RF No Action aspirin 81 mg tablet,chewable 81 mg PO DAILY 90 Days Qty: 90 3RF atorvastatin [Lipitor] 80 mg tablet 80 mg PO BEDTIME 90 Days Qty: 90 3RF metoprolol succinate 50 mg tablet extended release 24 hr 50 mg PO DAILY Qty: 90 3RF cyclobenzaprine 10 mg tablet 10 mg PO TID PRN (Reason: muscle spasm) Qty: 14 0RF lidocaine 5 % adhesive patch,medicated 1 patch topical DAILY Qty: 15 0RF Rx Instructions: leave on most painful area for up to 12 hrs naproxen 500 mg tablet 500 mg PO BID PRN (Reason: pain) Qty: 20 0RF nitroglycerin 0.4 mg tablet, sublingual sublingual tamsulosin 0.4 mg capsule 0.4 mg PO QAM
[2023-06-27 08:16] VITALS: TEMP 36.8
[2023-06-27] MEDS: Amoxicillin 500 MG CAPSULE PO (08:16)
--- NOTE | 2023-06-27 08:17 | PC.NURSE ---
pt a&ox3. respirations even and unlabored. pt reports having upper roof of the mouth pain for 3 days. pt mucousa moist, without any redness noted. pt denies nausea, vomiting and chest pain.
== END 2023-06-27 08:33 | disposition home or self-care (01) ==
PROVIDERS: Emergency Provider Emergency Medicine; PCP Nurse Practitioner
DX: K08.9 Disorder of teeth and supporting structures, unspecified (principal); I10 Essential (primary) hypertension; E78.5 Hyperlipidemia, unspecified; Z87.891 Personal history of nicotine dependence; Z79.82 Long term (current) use of aspirin; Z79.899 Other long term (current) drug therapy
CPT/HCPCS: 99283; 99284

== ENCOUNTER 2023-08-07 16:21 | Emergency (ER) | payer OTHER, SELFPAY ==
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
[2023-08-07 17:10] VITALS: BP 119/80; PULSE 83; RESP 20; TEMP 37; O2SAT 98; BMI 22.6
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
[2023-08-07 18:13] LABS: Ethanol < 10 mg/dL
[2023-08-07 18:17] LABS: Alanine Aminotransferase 42 U/L (0-40); Albumin Level 4.2 g/dL (3.5-5.0); Alkaline Phosphatase 56 U/L (39-117); Anion Gap 15 (12-20); Aspartate Amino Transferase 25 U/L (5-37); Bilirubin Direct 0.5 mg/dL (0.0-0.5); Bilirubin Total 1.5 mg/dL (0.0-1.0); Blood Urea Nitrogen 15 mg/dL (9-16); Calcium 9.7 mg/dL (8.4-10.2); Carbon Dioxide 28 mmol/L (22-29); Chloride 97 mmol/L (96-108); Creatinine Clr Calc Pharmacy 108.5; Estimated Glomerular Filt Rate > 60; Glucose Random 120 mg/dL (60-115); Lipase 32 U/L (8-78); Potassium 3.3 mmol/L (3.3-5.1); Sodium 137 mmol/L (135-145); Total Protein 7.4 g/dL (6.5-8.0)
[2023-08-07 18:23] LABS: Basophils Percent Auto 0.3 % (0-2); Eosinophils Percent Auto 0.3 % (0-4); Hematocrit 45.8 % (42.0-52.0); Hemoglobin 15.7 g/dl (14.0-18.0); Imm Gran Abs Auto 0.15 X10*3/uL (0.00-0.03); Imm Gran Pct Auto 1.3 % (0.0-0.4); Lymphocytes Absolute Auto 2.4 X10*3/uL (1.2-4.9); Lymphocytes Percent Auto 20.2 % (20-40); MANUAL DIFF FLAG SCAN; Mean Corpuscular HGB Conc 34.3 g/dl (31.0-36.0); Mean Corpuscular Hemoglobin 30.9 pg (27.0-33.0); Mean Corpuscular Volume 90.2 fL (80.0-98.0); Mean Platelet Volume 10.8 fL (9.4-12.4); Monocytes Absolute Auto 1.6 X10*3/uL (0.1-1.2); Monocytes Percent Auto 13.3 % (2-11); Neutrophils Absolute Auto 7.6 x10*3/uL (2.0-8.3); Neutrophils Percent Auto 64.6 % (45-73); Platelet Count 279 X10*3/uL (160-400); Red Blood Count 5.08 X10*6/uL (4.60-5.80); Red Cell Distribution Width 12.7 % (11.0-16.0); SCAN SMEAR FLAG 1; White Blood Count 11.8 X10*3/uL (4.8-10.8)
[2023-08-07 18:41] LABS: SLIDE REVIEW VERIFIED
[2023-08-07 20:40] VITALS: BP 110/78; PULSE 79; RESP 17; TEMP 36.6; O2SAT 100
--- NOTE | 2023-08-07 21:23 | PC.NURSE ---
pt brought in from waiting room; iv placed as ct awaiting for contrast. pt speaking full clear sentences, axox4, respirations even and unlabored. pt to ct at this time.
[2023-08-07 21:40] LABS: Amphetamine Screen Urine Not Detected (Not Detect); Barbiturates, Urine Not Detected (Not Detect); Benzodiazepines Screen Urine Not Detected (Not Detect); Cannabinoid Screen Urine POSITIVE (Not Detect); Cocaine Screen Urine Not Detected (Not Detect); Fentanyl, urine Not Detected (Not Detect); Opiate Screen Urine Not Detected (Not Detect); Phencyclidine Screen Urine Not Detected (Not Detect)
[2023-08-07] MEDS: iohexoL 350 MG/ML 100 ML INFUS..BTL IV (21:40)
[2023-08-07 22:15] VITALS: BP 128/81; PULSE 64; RESP 16; TEMP 36.7; O2SAT 100
[2023-08-08] MEDS: Acetaminophen 325 MG TABLET 975 MG PO (00:06)
== END 2023-08-08 00:18 | disposition home or self-care (01) ==
PROVIDERS: Physician Assistant Medical; Emergency Provider Internal Medicine; PCP Nurse Practitioner
DX: S02.2XXA Fracture of nasal bones, initial encounter for closed fracture (principal); B30.3 Acute epidemic hemorrhagic conjunctivitis (enteroviral); R51.9 Headache, unspecified; M54.6 Pain in thoracic spine; Y04.2XXA Assault by strike against or bumped into by another person, initial encounter; Y93.9 Activity, unspecified; Y92.9 Unspecified place or not applicable; Y99.9 Unspecified external cause status; Z79.899 Other long term (current) drug therapy
CPT/HCPCS: 36415; 70450; 70486; 71260; 74177; 80048; 80076; 80307; 83690; 85025; 99284; 99285; Q9967

== ENCOUNTER 2024-01-02 10:08 | Outpatient (REF) | payer MEDICAID, SELFPAY ==
[2024-01-02 11:19] LABS: Cholesterol 131 mg/dL (<200); HDL Cholesterol 55 mg/dL (>40); LDL Cholesterol Calculated 62 mg/dL (<100); Triglycerides 71 mg/dL (<150)
== END 2024-01-02 10:09 | disposition home or self-care (01) ==
LOC: HO.LAB 10:08
PROVIDERS: PCP Registered Nurse; Visit Provider Internal Medicine Cardiovascular Disease
DX: I25.10 Atherosclerotic heart disease of native coronary artery without angina pectoris (principal); E78.5 Hyperlipidemia, unspecified
CPT/HCPCS: 36415; 80061

== ENCOUNTER 2024-01-14 10:10 | Emergency (ER) | payer MEDICAID, SELFPAY ==
[2024-01-14 10:23] VITALS: BP 119/73; PULSE 60; RESP 18; TEMP 36.6; O2SAT 97; BMI 25.1
--- NOTE | 2024-01-14 11:24 | ED_ITS ---
HPI - Dental/Oral General Chief complaint: Dental/Oral Stated complaint: Dental pain Time Seen by Provider: 01/14/24 10:42 Source: patient and RN notes reviewed Mode of arrival: ambulatory Limitations: no limitations History of Present Illness HPI Narrative: This is a 53-year-old male, with no known medical problems, presenting to the emergency department with complaints of right lower dental pain x1 week. Patient states that last week he developed right lower dental pain and was seen by his dentist and was told that he needs to have a tooth extracted. He was given Tylenol for pain which he has been taking without any relief. He has an appointment on January 25 to have this tooth removed. He endorses subjective fevers and chills. And states that the pain is now radiating down into his jaw and into his right ear. Denies any other complaints or concerns at this time. MD Complaint: tooth pain Location: Tooth # (32) Onset (ago): day(s) Duration: constant Severity: severe Relieving factors: nothing Exacerbating factors: chewing Associated symptoms: fever and ear pain Treatment prior to arrival: oral analgesic Related Data Home Medications ?Medication ?Instructions ?Recorded ?Confirmed nitroglycerin 0.4 mg sublingual mg sublingual 09/29/20 01/26/23 tablet tamsulosin 0.4 mg capsule 0.4 mg PO QAM 01/26/23 01/26/23 Previous Rx's ?Medication ?Instructions ?Recorded aspirin 81 mg chewable tablet 81 mg PO DAILY 90 days #90 tabs 10/06/20 cyclobenzaprine 10 mg tablet 10 mg PO TID PRN muscle spasm #14 02/20/23 tabs lidocaine 5 % topical patch 1 patch topical DAILY #15 ea 02/20/23 naproxen 500 mg tablet 500 mg PO BID PRN pain #20 tabs 02/20/23 atorvastatin 80 mg tablet (Lipitor) 80 mg PO BEDTIME 90 days #90 tabs 03/29/23 metoprolol succinate 50 mg 50 mg PO DAILY #90 tabs 03/29/23 tablet,extended release 24 hr amoxicillin 500 mg tablet 500 mg PO BID #14 tabs 06/27/23 amoxicillin 500 mg tablet 500 mg PO TID #21 tabs 08/08/23 tobramycin 0.3 % eye drops 2 drp ophthalmic-Left Q4H 5 days 08/08/23 #5 mL acetaminophen 650 mg 650 mg PO Q8H PRN pain #30 tabs 01/14/24 tablet,extended release (Tylenol 8 Hour) amoxicillin 875 mg-potassium 1 tab PO BID 7 days #14 tabs 01/14/24 clavulanate 125 mg tablet oxycodone 5 mg tablet 5 mg PO Q6H PRN pain #7 tabs 01/14/24 Allergies Allergy/AdvReac Type Severity Reaction Status Date / Time shellfish derived Allergy Unknown ANAPHYLAXIS Verified 01/14/24 10:27 [SHELLFISH DERIVED] Review of Systems 2 Review of Systems: Yes all other systems are reviewed and are negative Constitutional: Constitutional: Reports as per [facility] Past Medical History Medical History Hyperlipidemia CAD (coronary artery disease) ACS (acute coronary syndrome) No known health problems Asthma Surgical History History of appendectomy Stented coronary artery Family History Family History Mother CAD (coronary artery disease) Father Chronic asthma Social History Social History Household Members: Significant Other and Children Housing: Apartment Do you presently have visiting nurse or other home services: No Alcohol intake: current Alcohol intake frequency: a few times a month Alcohol type: hard liquor Patient Tobacco Use Status: Former Tobacco user Quit Date: 2019 Years Smoked: 30 +/- Substance Use Type: Marijuana Advance Directives: No Advance Directives Information Provided: Yes service: No Current occupational status: unemployed Current occupation: rt hand Physical Exam 2 Vital Signs: Vital Signs: Last Vital Signs Temp 98 F 01/14/24 10:23 Pulse 60 01/14/24 10:23 Resp 18 01/14/24 10:23 BP 119/73 01/14/24 10:23 Pulse Ox 97 01/14/24 10:23 O2 Del Method Room Air 01/14/24 10:23 BMI result Body Mass Index 25.1 Const: General: cooperative, comfortable and no acute distress O rientation/consciousness: patient oriented x3 Limitations: no limitations HEENT: Head: Yes normal to inspection, Yes normocephalic and Yes atraumatic Ears: hearing grossly normal bilaterally General nose exam: Normal external nose present Face and sinus: Yes normal facial exam Mouth: Normal oral and palatal mucosa present, oropharynx normal and moist mucous membranes Teeth image: 1. Tooth number 32, with exquisite tenderness to palpation, no surrounding gingival erythema edema, fluctuance or induration. Throat: Yes posterior oropharynx normal Eyes: General: appearance normal, both eyes and all related structures E yelids: Yes eyelids normal Conjunctivae: conjunctivae normal Sclerae: s clerae normal Pupils: Equal, round and reactive pupils present EOM: EOMs intact bilaterally Neck: Neck: Yes normal visual inspection, Yes full ROM and Yes no lymphadenopathy Lymphatic: no lymphadenopathy noted Chest: Chest palpation & inspection: normal inspection of the chest Resp: Effort & Inspection: normal respiratory effort and able to speak in complete sentences Auscultation: clear to auscultation bilaterally, no crackles, no rales, no rhonchi and no wheezes Cardio: Rate: regular rate Rhythm: regular rhythm Heart sounds: S1 normal heart sound present and S2 normal heart sound present GI: Inspection: Yes normal to inspection Skin: General skin exam: no rashes or lesions noted Trauma: no lacerations or abrasions Wounds: no wounds Neuro: General: patient oriented x3 and moves all extremities Cranial nerves: Yes Equal, round and reactive pupils present Extrem: General: Yes normal to inspection Right upper extremity: normal to inspection Left upper extremity: normal to inspection Right lower extremity: normal to inspection Left lower extremity: normal to inspection Medical Decision Making Medical Decision Making MDM Narrative: This is a 53-year-old male, with a history of heart attack with stent placement on aspirin, presenting to the emergency department complaints of right-sided dental pain x1 week. He was seen by his dentist who was told that his wisdom teeth needs to be removed. He states that the pain is worsening, and endorses subjective fevers and chills. On examination, patient has tenderness palpation along tooth number 32, no surrounding gingival erythema or edema, no obvious dental abscess. He has an appointment with his dentist on January 25. Given patient has had worsening pain with subjective fevers and chills, will treat with antibiotics. Also given short Rx for oxycodone. Encouraged to continue taking Tylenol. Given return precautions. He understands agrees with plan. Patient stable for discharge. Differential Diagnosis Differential Diagnoses: The differential diagnosis associated with the presentation includes Dental caries, dental abscess, dental pain, osteomyelitis-unlikely Discharge Plan Discharge Clinical Impression: Pain, dental Patient Disposition: Home, Self-Care Instructions: Toothache (ED) Additional Instructions: You were seen in the emergency department due to dental pain. Your pain may be attributed to an infection or nerve pain. You need to follow-up with your dentist, call tomorrow to make an appointment. They may be able to see you sooner. I am prescribing you an antibiotic, please finish the entire course. I am also prescribing you a pain medication called oxycodone. This is a strong narcotic pain medication. This will cause drowsiness, do not drink alcohol or drive while taking this medication. This medication can also be addictive, only take for severe pain only, do not take if you do not deem necessary. Take Tylenol as prescribed. If any new or worsening symptoms occur including but not limited to difficulty opening and closing your jaw, fevers, chills, chest pain, shortness of breath, please return for re-evaluation. Prescriptions: New amoxicillin-pot clavulanate 875-125 mg tablet 1 tab PO BID 7 Days Qty: 14 0RF oxycodone 5 mg tablet 5 mg PO Q6H PRN (Reason: pain) Qty: 7 0RF Rx Instructions: Partial Fill upon patient request. acetaminophen [Tylenol 8 Hour] 650 mg tablet extended release 650 mg PO Q8H PRN (Reason: pain ) Qty: 30 0RF No Action aspirin 81 mg tablet,chewable 81 mg PO DAILY 90 Days Qty: 90 3RF atorvastatin [Lipitor] 80 mg tablet 80 mg PO BEDTIME 90 Days Qty: 90 3RF metoprolol succinate 50 mg tablet extended release 24 hr 50 mg PO DAILY Qty: 90 3RF cyclobenzaprine 10 mg tablet 10 mg PO TID PRN (Reason: muscle spasm) Qty: 14 0RF lidocaine 5 % adhesive patch,medicated 1 patch topical DAILY Qty: 15 0RF Rx Instructions: leave on most painful area for up to 12 hrs naproxen 500 mg tablet 500 mg PO BID PRN (Reason: pain) Qty: 20 0RF amoxicillin 500 mg tablet 500 mg PO BID Qty: 14 0RF amoxicillin 500 mg tablet 500 mg PO TID Qty: 21 0RF tobramycin 0.3 % drops 2 drp ophthalmic-Left Q4H 5 Days Qty: 5 0RF nitroglycerin 0.4 mg tablet, sublingual sublingual tamsulosin 0.4 mg capsule 0.4 mg PO QAM Print Language: Belarusian
[2024-01-14 11:37] VITALS: BP 119/73; PULSE 60; RESP 18; TEMP 36.6
== END 2024-01-14 11:38 | disposition home or self-care (01) ==
PROVIDERS: Emergency Provider Student in an Organized Health Care Education/Training Program; PCP Registered Nurse
DX: K08.89 Other specified disorders of teeth and supporting structures (principal)
CPT/HCPCS: 99282; 99283

== ENCOUNTER 2024-02-01 12:55 | Outpatient (AMB) | payer MEDICAID, SELFPAY ==
--- NOTE | 2024-02-01 13:02 | A.OFFVIS_ITS ---
Vital Signs 02/01/24 13:04 Height 5 ft 8 in Weight 154 lb 5.177 oz BMI 23.5 BP 108/60 Blood Pressure Location Lt brachial Position Sitting Pulse 63 Intake Visit Reasons: 1 YEAR FOLLOW UP Intake Note: 1 year follow-up with ekg hearts feeling ok Training Intern Required: No Allergies shellfish derived [SHELLFISH DERIVED] Allergy (Unknown, Verified 01/14/24 10:27) ANAPHYLAXIS Medication List - Last Reconciled 02/01/24 by Juan Santana MD acetaminophen ER (Tylenol 8 Hour) 650 mg PO Q8H PRN aspirin 81 mg PO DAILY 90 days atorvastatin (Lipitor) 80 mg PO BEDTIME 90 days metoprolol succinate ER 50 mg PO DAILY nitroglycerin mg sublingual tamsulosin 0.4 mg PO QAM HPI Comments Details: Khalif comes for follow-up. He has been doing very well from cardiac perspective. Denies any cardiac symptoms. He has been taking all his medications. No side effects of it. Last LDL of 62 mg/dL well optimized. His sugars slightly elevated 120. He denies any exertional chest pain. No heart failure symptoms. No prolonged palpitation irregular heartbeat. No lightheadedness, syncope. [facility] Medical History Hyperlipidemia CAD (coronary artery disease) ACS (acute coronary syndrome) No known health problems Asthma Surgical History History of appendectomy Stented coronary artery Family History Mother CAD (coronary artery disease) Father Chronic asthma Social History Household Members: Significant Other and Children Housing: Apartment Do you presently have visiting nurse or other home services: No Alcohol intake: current Alcohol intake frequency: a few times a month Alcohol type: hard liquor Patient Tobacco Use Status: Former Tobacco user Quit Date: 2019 Years Smoked: 30 +/- Substance Use Type: Marijuana service: No Current occupational status: unemployed Current occupation: rt hand Review of Systems Const Denies chills, Denies fatigue, Denies fever(s), Denies frequent falls, Denies weakness, Denies weight gain and Denies weight loss ENT Denies dizziness Card Denies chest pain, Denies leg edema, Denies lightheadedness, Denies palpitations, Denies dyspnea, Denies dyspnea on exertion, Denies orthopnea and Denies other (loss of consciousness) Resp Denies cough, Denies dyspnea and Denies dyspnea on exertion GI Denies hematochezia and Denies change in stool character Musc Denies abnormal gait, Denies muscle weakness, Denies numbness, Denies radiating pain into limb and Denies tingling Neuro Denies abnormal gait, Denies dizziness, Denies frequent falls, Denies numbness, Denies tingling and Denies weakness Endo Denies fatigue and Denies palpitations Physical Exam Vital Signs: Last Vital Signs Pulse 63 02/01/24 13:04 BP 108/60 02/01/24 13:04 BMI result Body Mass Index 23.5 Const General: cooperative, comfortable, no acute distress, alert, awake and well groomed Nutritional Appearance: average body habitus Orientation/consciousness: patient oriented x3 Limitations: no limitations Neck Neck: Yes trachea midline, Yes supple and Yes no JVD Resp Effort & Inspection: normal respiratory effort Auscultation: clear to auscultation bilaterally Cardio Jugular venous distension: no JVD Palpation: normal PMI Rate: regular rate Rhythm: regular rhythm Heart sounds: S1 normal heart sound present and S2 normal heart sound present GI Auscultation: normal bowel sounds Skin General skin exam: no rashes or lesions noted Neuro General: patient oriented x3 and no focal motor deficits Extrem General: Yes no clubbing, cyanosis or edema Psych Appearance: grossly normal Affect: Anxious affect present Office Procedures EKG Details: EKG shows normal sinus rhythm with normal EKG [id number], Complete Assessment & Plan Assessment & Plan (1) CAD (coronary artery disease): Code(s): I25.10 - Atherosclerotic heart disease of [place] coronary artery without angina pectoris Category: Medical Plan: Stable CAD with stenting of the circumflex artery for acute coronary syndrome more than 3 years ago. Will suggest a treadmill stress test to evaluate for progressive atherosclerosis and stent patency. This will be scheduled in near future. He is encouraged to continue to participate in physical activity as tolerated. Continue aggressive medical therapy. Continue low-dose aspirin therapy for life. Continue high-intensity statin therapy with LDL well optimized at this point time. Target goal LDL closer to 60 mg/dL. Encouraged to continue to participate in good dietary habits. His sugars are slightly elevated advised to follow with you to evaluate for development of diabetes. Blood pressure is currently well optimized advised to monitor blood pressure at home maintain log. Goal blood pressure less than 130/84. Smoking cessation was applauded. Will follow up in the clinic in 1 year's time, sooner p.r.n.. Thank you for allowing me to partake in his care Orders: Orders CA stress test Today I25.10 - Atherosclerotic heart disease of [place] coronary artery without angina pectoris NM cardiolite stress test 2 Weeks I25.10 - Atherosclerotic heart disease of [place] coronary artery without angina pectoris, R07.9 - Chest pain, unspecified Coding Level of Care Code Est Pt Level 4 (57635) Diagnoses CAD (coronary artery disease) I25.10 CPT Codes EKG - CPT: 61567-[id number], Complete ([id number])
[2024-02-01 13:04] VITALS: BP 108/60; PULSE 63; BMI 23.5
== END 2024-02-01 13:35 | disposition home or self-care (01) ==
PROVIDERS: PCP Registered Nurse; Visit Provider Internal Medicine Cardiovascular Disease
DX: I25.10 Atherosclerotic heart disease of native coronary artery without angina pectoris (principal)
CPT/HCPCS: 93010; 99214

== ENCOUNTER → 2024-02-01 12:55 | Outpatient (BNVA) | payer MEDICAID, SELFPAY | PROVIDERS: PCP Registered Nurse; Visit Provider Internal Medicine Cardiovascular Disease | DX: I25.10 Atherosclerotic heart disease of native coronary artery without angina pectoris (principal) | CPT/HCPCS: 93005; 99212 ==

== ENCOUNTER 2024-02-16 15:11 | Outpatient (REF) | payer MEDICAID, SELFPAY ==
[2024-02-16 17:34] LABS: CT PCR NOT DETECTED (Not Detect.); NG PCR NOT DETECTED (Not Detect.)
[2024-02-19 08:54] LABS: HIV AB/AG Nonreactive (Nonreactive); HIV Num 1 0.04 S/CO (0.00-0.99)
[2024-02-19 19:38] LABS: RPR Rapid Plasma Reagin NON-REACTIVE (NON-REACTIVE)
== END 2024-02-16 15:12 | disposition home or self-care (01) ==
LOC: HO.HHCL 15:11
PROVIDERS: Visit Provider Registered Nurse
DX: Z11.3 Encounter for screening for infections with a predominantly sexual mode of transmission (principal)
CPT/HCPCS: 0353U; 36415; 86592; 87389

== ENCOUNTER → 2024-03-18 09:22 | Outpatient (REF) | payer MEDICAID, SELFPAY ==
--- NOTE | ~2024-03-18 | NM_ITS ---
Exercise Myocardial perfusion study Indication: Chest pain to evaluate for myocardial ischemia Technique: The patient was brought in for an exercise perfusion study on 03/18/2024. Patient performed exercise as per Craig protocol and was injected 25 mCi of sestamibi was given intravenously one target HR was achieved. Images were obtained using the SPECT gamma camera interlaced with the gating device. Images were obtained in supine position. Resting perfusion study was performed on 03/20/2024. Patient was administered 25 mCi of sestamibi intravenously at rest. Images were then obtained in supine position. Images obtained with and without CT attenuation. Total DLP 79 mGy-cm. Images were processed with the software and compared side to side in short axis, horizontal long axis and vertical long axis views. Findings: The stress perfusion study showed non attenuated images show normal uptake of radiotracer in all segments of LV myocardium. Attenuation corrected images show minimal thinning of the apex of the LV myocardium.. The gated study shows normal LV systolic function with calculated LVEF of 72%. LV cavity is normal in size. The gated study shows normal systolic wall thickening and contraction of all segments. There is no transient ischemic dilation. Resting study shows no significant change in perfusion pattern compared to stress perfusion study. Gating at rest reveals normal systolic wall motion with ejection fraction at 60%. The findings are consistent with normal myocardial perfusion. NM/NM cardiolite stress test Impression: 1. Normal myocardial perfusion 2. Gated LVEF is 72% 3. Transient ischemic dilatation not present Stress EKG is equivocal for ischemia
--- NOTE | 2024-03-18 09:24 | CA_ITS ---
Acquisition Time: 2024-03-18 09:37:44 Total Exercise Time: 00:10:00 Test Indications: CHEST PAIN Medications: Protocol: JYOTHI Max HR: 155 BPM 92% of Pred: 168 BPM Max BP: 158/078 mmHG Max Work Load: 11.7 METS Exercise stress test exercise 10 min of Jyothi protocol achieving 91% MPHR without anginal symptoms, with isolated PACs, with normotensive response to exercise, with scooping leads 2, 3, aVF. . Nuclear images pending. Test reviewed with Dr. Bolivar. Referred By: Juan Santana Overread By: Yari Lowe
== END ==
LOC: HO.CARD 09:22
PROVIDERS: PCP Registered Nurse; Visit Provider Internal Medicine Cardiovascular Disease
DX: R07.9 Chest pain, unspecified (principal); I25.10 Atherosclerotic heart disease of native coronary artery without angina pectoris
CPT/HCPCS: 78452; 93017; A9500

== ENCOUNTER → 2024-03-18 09:24 | Outpatient (BNV) | payer MEDICAID, SELFPAY | PROVIDERS: PCP Registered Nurse; Visit Provider Nurse Practitioner | DX: R07.9 Chest pain, unspecified (principal) | CPT/HCPCS: 78452; 93016; 93018 ==

== ENCOUNTER → 2024-03-26 15:29 | Outpatient (AMB) | payer MEDICAID, SELFPAY ==
[2024-03-26 15:38] VITALS: BMI 23.4
--- NOTE | 2024-03-26 15:38 | A.OFFVIS_ITS ---
Vital Signs 03/26/24 15:38 Height 5 ft 8 in Weight 153 lb 14.122 oz BMI 23.4 Blood Pressure Location Rt brachial Position Sitting Intake Visit Reasons: pre colonoscopy Intake Note: Khalif returns to the office today for pre colonoscopy visit. CC: Patient denies having any GI symptoms today. He has never had a colonoscopy done before. Music Intern Required: No Accompanied by: Self / Same As Patient Allergies shellfish derived [SHELLFISH DERIVED] Allergy (Unknown, Verified 03/26/24 15:39) ANAPHYLAXIS HPI HPI pre colonoscopy: Details: 53 year old? male with past medical history of arthritis, CAD, hyperlipidemia, hypertension, status post drug eluting stent placement in September of 2020 is here today for pre colonoscopy screening.? Patient was sent to us by his PCP.? This is his first colonoscopy screening.? Patient denies any gastrointestinal symptoms in the past or at present.? Denies any personal or family history of gastrointestinal disease, colon polyps, or CRC.? Patient reports that uncle might have cancer but he thinks it was prostate and not intestinal. Currently patient is on aspirin. Patient was on dual therapy with Brilinta and aspirin. Seen by prosthetics lab technician in January. Recently patient had stress test that was done just few days ago. Exercise with nuclear images. Results available and were normal. Patient denies any chest pain or shortness of breath with or without exertion. Denies history of difficulty with sedation or anesthesia in the past.? Negative for history of sleep apnea.? Denies any history of renal, pulmonary, or hepatic disease.?? No history of infectious? diseases like hepatitis A, B, C, HIV or tuberculosis.? PFSH Medical History Hyperlipidemia CAD (coronary artery disease) ACS (acute coronary syndrome) No known health problems Asthma Surgical History History of appendectomy Stented coronary artery Family History Mother CAD (coronary artery disease) Father Chronic asthma Social History Household Members: Significant Other and Children Housing: Apartment Do you presently have visiting nurse or other home services: No Alcohol intake: current Alcohol intake frequency: a few times a month Alcohol type: hard liquor Patient Tobacco Use Status: Former Tobacco user Years Smoked: 30 +/- Substance Use Type: Marijuana service: No Current occupational status: unemployed Current occupation: rt hand Review of Systems Const Denies weight gain and Denies weight loss ENT Reports no additional complaints, Denies dysphagia and Denies odynophagia Card Reports no additional complaints Resp Reports no additional complaints GI Denies abdominal pain, Denies belching, Denies melena, Denies bloating, Denies change in bowel habits, Denies dysphagia, Denies excessive flatus, Denies dyspepsia, Denies heartburn, Denies diarrhea, Denies loose stools, Denies nausea, Denies odynophagia and Denies vomiting Reports no additional complaints Musc Reports no additional complaints Neuro Reports no additional complaints Psych Reports no additional complaints Endo Reports no additional complaints Physical Exam Vital Signs: BMI result Body Mass Index 23.4 Const General: healthy appearing, no acute distress and well developed Nutritional Appearance: well nourished Orientation/consciousness: patient oriented x3 Resp Effort & Inspection: normal respiratory effort, able to speak in complete sentences, no tracheal deviation and symmetric chest movement Auscultation: clear to auscultation bilaterally Cardio Rate: regular rate GI Inspection: Yes normal to inspection and No distended Palpation (GI): Soft to palpation, not firm, nontender and No hepatosplenomegaly present Auscultation: normal bowel sounds General: Yes no CVA tenderness Back/Spine/Pelvis Back: no CVA tenderness Skin General skin exam: elasticity normal, turgor normal and dry skin Neuro General: patient oriented x3 Psych Appearance: grossly normal Mental Status: mental status grossly normal Assessment & Plan Assessment & Plan (1) Screen for colon cancer: Code(s): Z12.11 - Encounter for screening for malignant neoplasm of colon Plan Patient denies any GI, cardiac or respiratory symptoms.? History of CAD with stenting in September of 2020. Patient currently is on low-dose aspirin. Check with his prosthetics lab technician, Dr. Santana if it is okay for him to stop for few days before procedure. Patient had normal stress test on 12th of this month. Denies any issues with anesthesia in the past.? Denies any history of sleep apnea.? No history infectious diseases in the past or present.? No family or personal history of colon cancer or polyps.? Patient denies melena, hematochezia, unintentional weight loss or ribbon like stools.? Discussed at length the pre- procedure,? prep, diet & medications as well as what to expect prior, during and after the procedure.?? Stressed the importance of good bowel prep.? Recommended the use of Vaseline or Calmoseptine OTC & baby wipes with bowel movements to promote comfort.? ?Patient verbalizes understanding and agrees to plan of care.? He was given the opportunity to ask questions and all questions answered.? We will see him after the procedure.? Medications: New bisacodyl (Dulcolax (bisacodyl)) take 4 tabs at noon the day before your colonoscopy 20 mg (4 x 5 mg) PO ONCE 1 day 4 tabs 0RF Z12.11 - Encounter for screening for malignant neoplasm of colon polyethylene glycol 3350 (Miralax) As directed by gastroenterology department at [facility] 238 grams PO ONCE 238 grams 0RF Z12.11 - Encounter for screening for malignant neoplasm of colon Coding Level of Care Code New Pt Level 3 (00195) Diagnoses Screen for colon cancer Z12.11 Time Spent (min) 40 Comment 30 minutes spent with patient and additional 10 minutes spent reviewing his records
== END ==
PROVIDERS: PCP Registered Nurse; Visit Provider Nurse Practitioner Family
DX: Z12.11 Encounter for screening for malignant neoplasm of colon (principal); Z01.818 Encounter for other preprocedural examination
CPT/HCPCS: 99203

== ENCOUNTER → 2024-03-26 15:29 | Outpatient (BNVA) | payer MEDICAID, SELFPAY | PROVIDERS: PCP Registered Nurse; Visit Provider Nurse Practitioner Family | DX: Z01.818 Encounter for other preprocedural examination (principal) | CPT/HCPCS: 99212 ==

== ENCOUNTER 2024-04-26 10:01 | Outpatient (AMB) | payer MEDICAID, SELFPAY ==
--- NOTE | 2024-04-26 07:49 | MHC.OFFVIS ---
Intake Visit Reasons: Former Smoker Allergies shellfish derived [SHELLFISH DERIVED] Allergy (Unknown, Verified 03/26/24 15:39) ANAPHYLAXIS HPI HPI Former Smoker: Details: Initial visit for this 53yo former smoker with a 30PYH. Patient started smoking at age 19 for 31 years at 1ppd. Quit in 2020 (after heart attack). Reports occasional marijuana use. . Denies second hand smoke exposure. Denies exposure to chemicals or substances like asbestos. . Denies known family history of lung cancer. Denies personal history of cancers. Denies chest CT in last year. . Denies recent travel outside the [place]. Denies recent respiratory illness or recent hospitalization for respiratory issues. Reports testing positive for COVID. Denies receiving COVID Vaccine. . Denies fever, chills, new/worsening cough, hemoptysis, hoarseness or dysphagia. Denies significant chest pain, significant dyspnea or unintentional weight loss. Patient Lung Cancer Screening Questionnaire reviewed with patient by provider. . Shared Decision Making Completed. Patient meets criteria. Discussed in detail with patient, the risk vs benefit of LDCT screening. Patient consents to proceed with scan. Discussed and encouraged continued smoking cessation. [facility] Medical History (Updated 04/26/24 @ 10:32 by Елена Rose PA-C) CAD (coronary artery disease) Stented coronary artery HTN (hypertension) Hyperlipidemia Asthma Personal history of nicotine dependence Surgical History (Updated 04/18/24 @ 14:46 by Елена Rose PA-C) History of heart artery stent History of appendectomy Family History Mother CAD (coronary artery disease) Father Chronic asthma Social History (Updated 04/26/24 @ 10:32 by Елена Rose PA-C) Household Members: Significant Other and Children Housing: Apartment Do you presently have visiting nurse or other home services: No Alcohol intake: current Alcohol intake frequency: a few times a month Alcohol type: hard liquor Patient Tobacco Use Status: Former Tobacco user Years Smoked: (onset 19yo, 1ppd x 31yrs, 30pyh, quit 2020) Substance Use Type: Marijuana service: No Current occupational status: unemployed Current occupation: rt hand Assessment & Plan Assessment & Plan (1) Personal history of nicotine dependence: Comment: (former smoker - onset 19yo, 1ppd x 31yrs, 30pyh, quit 2020) Code(s): Z87.891 - Personal history of nicotine dependence Category: Medical Plan: - SDM visit completed today in office. - Patient meets criteria for LDCT for lung cancer screening purposes and is asymptomatic. - Smoking cessation counseling offered. Patients can always call [phone]. - Will arrange for a LDCT scan of the chest for screening purposes at [facility]. - Risks, benefits, and alternatives were discussed in detail and the patient agrees to proceed. - Risks discussed include but are not limited to: radiation exposure, anxiety during testing and while awaiting results, false negatives, false positives and possibility of additional intervention such as further imaging or surgical procedures for benign disease. - Benefits are obviously detection of lung cancer at an early stage which can lead to improved outcomes. - Discussed the importance of screening program compliance with adherence to yearly LDCT scan as scheduled - or sooner interval scans for personalized screening regimen. - Discussed follow up plan. Our office will send a letter discussing results and if needed set up phone call and office visit based on CT findings. - Patient educated on results categorization and the management decisions for suspicious findings potentially found on the screening LDCT scan. Any patient with a Lung RADS score of 3 or 4 will be reviewed by a multidisciplinary team at [facility] to form a plan of action in regards to scan findings. - If further work up is warranted for a suspicious lung finding this will be followed by the Lung Cancer Screening program in conjunction with the Thoracic Surgery Department at [facility]. - A copy of the office note and LDCT will be sent to the patient's PCP - as well as documentation on any associated further plans of care. - Incidental findings on LDCT are the PCP's responsibility. These findings are indicated with an S finding on the LDCT Assessment. A note discussing the findings will be sent to the PCP who is then responsible for further management. - All questions answered.? Coding Level of Care Code Lung Cancer Screening G0296 Diagnoses Personal history of nicotine dependence Z87.891
== END 2024-04-26 10:27 | disposition home or self-care (01) ==
PROVIDERS: PCP Registered Nurse; Referring Provider Registered Nurse; Visit Provider Physician Assistant Medical
DX: Z87.891 Personal history of nicotine dependence (principal)
CPT/HCPCS: G0296

== ENCOUNTER 2024-04-26 10:22 | Outpatient (REF) | payer MEDICAID, SELFPAY ==
--- NOTE | ~2024-04-26 | CT_ITS ---
EXAMINATION: CT LOW-DOSE SCREENING CHEST WITHOUT CONTRAST CLINICAL INFORMATION: Personal history of nicotine dependence, smoking, 34 pack-years, quit smoking 3 years prior, 156 pounds. COMPARISON: CT chest 08/07/2023. TECHNIQUE: Multidetector volumetric CT imaging of the chest is performed on a Siemens SOMATOM Definition scanner without contrast using low dose technique. Additional 2D coronal and sagittal reformatted images and axial 3D maximum intensity projection (MIP) images are generated on the CT workstation. This CT examination was performed using dose optimization techniques as appropriate, variously including the following: *Automated exposure control *Adjustment of mA and/or kV according to patient size (this includes techniques or standardized protocols for targeted exams where dose is matched to indication/reason for exam; i.e. extremities or head) *Use of iterative reconstruction technique TOTAL EXAM DLP: 53 mGy-cm. Please note, due to [facility] contractual, systems, and staffing issues, an [facility] radiologist was not available for review and dictation of this case until 06/07/2024. FINDINGS: PULMONARY NODULES: -4 mm fissural nodule in the mid minor fissure, consistent with intrapulmonary lymph node (series 5, image 271). This is stable and benign. There is a similar benign nodule in the major fissure laterally on image 354. -3 mm nodule superior segment right lower lobe (series 5, image 293), stable. -2 mm subpleural nodule left lower lobe posteriorly (series 5, image 409), unchanged. -There is no new or enlarging nodule. LUNGS: -Lungs are clear bilaterally without consolidation or abnormal groundglass opacity. -There is minor bronchiectasis in the bilateral lower lobes without bronchial wall thickening. The trachea and central airways are normal. -Minor parenchymal scarring is present in the medial left lower lobe and lingula. -There is no pleural effusion, pneumothorax, or pleural mass. MEDIASTINUM: -Mild ectasia of the descending aorta measuring up to 3.9 cm on this non-gated study. Aorta otherwise normal in course and caliber. -Main pulmonary artery normal. -No abnormal lymphadenopathy present. -Esophagus appears mildly patulous but is otherwise normal. -Heart size is normal. No pericardial effusion. CORONARY ARTERY CALCIFICATION: There is either a circumflex artery stent or focal dense calcification present. There is otherwise mild to moderate LAD and RCA calcifications. THYROID GLAND: Unremarkable to the extent seen. CHEST WALL/AXILLA: Unremarkable. UPPER ABDOMEN: -Imaged upper abdominal contents normal allowing for confines of low-dose technique. OSSEOUS STRUCTURES: No suspicious focal findings. CT/CT lung screening IMPRESSION: 1. A few scattered small pulmonary nodules measuring up to 4 mm, stable and benign. No enlarging or suspicious nodules and no new nodules. 2. No active lung disease. 3. Ectasia of the descending aorta measuring up to 3.9 cm on this non-gated study. 4. Additional ancillary findings as discussed in the body of the report. ASSESSMENT: 1. Lung-RADS Category 2: Benign appearance or behavior of nodules. 2. Lung-RADS Category S: None. RECOMMENDATION: Continued routine annual low-dose CT lung screening in 1 year is recommended. An order for CT CHEST LOW DOSE CANCER SCREENING ([id number]) can be placed. Electronically signed by: Osvaldo Lowe MD 06/07/2024 09:36 AM EDT
== END 2024-04-26 10:23 | disposition home or self-care (01) ==
LOC: HO.CT 10:22
PROVIDERS: Visit Provider Physician Assistant Medical
DX: Z12.2 Encounter for screening for malignant neoplasm of respiratory organs (principal); Z87.891 Personal history of nicotine dependence
CPT/HCPCS: 71271; G0296

== ENCOUNTER → 2024-04-26 10:24 | Outpatient (BNV) | payer MEDICAID, SELFPAY | PROVIDERS: Visit Provider Radiology Diagnostic Radiology | DX: Z12.2 Encounter for screening for malignant neoplasm of respiratory organs (principal); F17.210 Nicotine dependence, cigarettes, uncomplicated | CPT/HCPCS: 71271 ==

== ENCOUNTER 2024-06-25 09:33 | Outpatient (REF) | payer MEDICAID, SELFPAY ==
[2024-06-28 09:39] LABS: TS Negative Control Passed; TS Panel A 0; TS Panel B 0; TS Positive Control Passed; TSpotTB Negative (Negative)
== END 2024-06-25 09:34 | disposition home or self-care (01) ==
LOC: HO.HHCL 09:33
PROVIDERS: Visit Provider Registered Nurse
DX: Z11.1 Encounter for screening for respiratory tuberculosis (principal)
CPT/HCPCS: 36415; 86481

== ENCOUNTER 2024-08-27 09:44 | Outpatient (REF) | payer MEDICAID, SELFPAY ==
[2024-08-27 11:41] LABS: Alanine Aminotransferase 34 U/L (0-40); Albumin Level 4.1 g/dL (3.5-5.0); Alkaline Phosphatase 49 U/L (39-117); Anion Gap 9 (12-20); Aspartate Amino Transferase 24 U/L (5-37); Bilirubin Total 0.7 mg/dL (0.0-1.0); Blood Urea Nitrogen 9 mg/dL (9-16); Calcium 8.9 mg/dL (8.4-10.2); Carbon Dioxide 30 mmol/L (22-29); Chloride 105 mmol/L (96-108); Cholesterol 113 mg/dL (<200); Estimated Glomerular Filt Rate > 60; Glucose Random 93 mg/dL (60-115); HDL Cholesterol 49 mg/dL (>40); LDL Cholesterol Calculated 49 mg/dL (<100); Potassium 3.8 mmol/L (3.3-5.1); Sodium 140 mmol/L (135-145); Total Protein 6.9 g/dL (6.5-8.0); Triglycerides 78 mg/dL (<150)
== END 2024-08-27 09:45 | disposition home or self-care (01) ==
LOC: HO.HHCL 09:44
PROVIDERS: Visit Provider Registered Nurse
DX: I10 Essential (primary) hypertension (principal)
CPT/HCPCS: 36415; 80053; 80061

== ENCOUNTER 2025-01-05 11:03 | Emergency (ER) | payer MEDICAID, SELFPAY ==
[2025-01-05 11:04] VITALS: BP 126/77; PULSE 77; RESP 18; TEMP 36.7; O2SAT 98; BMI 24.1
--- NOTE | 2025-01-05 11:20 | ED.DENTAL ---
HPI - Dental/Oral General Chief complaint: Dental/Oral Stated complaint: tooth pain Time Seen by Provider: 01/05/25 11:14 Source: patient Mode of arrival: ambulatory Limitations: no limitations History of Present Illness ED Provider: Juana Amaral NP HPI Narrative: Patient is a 54-year-old male who presents emergency department for evaluation. He reports 3 weeks ago he chipped one of his teeth on the lower right side, has an appointment scheduled for extraction of the tooth 02/07/2025. Over the past week he has been experiencing pain to the tooth. Has not trialed OTC analgesics or ivgw-erm-wszarlc analgesic dental gel as he thinks it is may worsen his symptoms. He believes there is an infection and requires antibiotics. He denies any pus-like drainage, foul taste to his mouth, swelling of the gums, notable redness, bleeding, fevers, chills, painful swallowing or difficulty swallowing Related Data Home Medications ?Medication ?Instructions ?Recorded ?Confirmed nitroglycerin 0.4 mg sublingual mg sublingual 09/29/20 02/01/24 tablet tamsulosin 0.4 mg capsule 0.4 mg PO QAM 01/26/23 02/01/24 Previous Rx's ?Medication ?Instructions ?Recorded aspirin 81 mg chewable tablet 81 mg PO DAILY 90 days #90 tabs 10/06/20 acetaminophen 650 mg 650 mg PO Q8H PRN pain #30 tabs 01/14/24 tablet,extended release (Tylenol 8 Hour) atorvastatin 80 mg tablet (Lipitor) 80 mg PO BEDTIME 90 days #90 tabs 02/12/24 metoprolol succinate 50 mg 50 mg PO DAILY #90 tabs 02/12/24 tablet,extended release 24 hr bisacodyl 5 mg tablet,delayed 20 mg (4 x 5 mg) PO ONCE 1 day #4 03/26/24 release (Dulcolax (bisacodyl)) tabs polyethylene glycol 3350 17 238 g PO ONCE #238 grams 03/26/24 gram/dose oral powder (Miralax) Allergies Allergy/AdvReac Type Severity Reaction Status Date / Time shellfish derived Allergy Unknown ANAPHYLAXIS Verified 01/05/25 11:07 [SHELLFISH DERIVED] Review of Systems Review of Systems: Yes all other systems are reviewed and are negative PMFSH Past Medical History Attestation statement: The following information was validated with the patient. Source: old records reviewed Medical History CAD (coronary artery disease) Stented coronary artery HTN (hypertension) Hyperlipidemia Asthma Personal history of nicotine dependence Surgical History History of heart artery stent History of appendectomy Family History Family History Mother CAD (coronary artery disease) Father Chronic asthma Social History Social History (Updated 04/26/24 @ 10:32 by Елена Rose PA-C) Household Members: Significant Other and Children Housing: Apartment Do you presently have visiting nurse or other home services: No Alcohol intake: current Alcohol intake frequency: a few times a month Alcohol type: hard liquor Patient Tobacco Use Status: Former Tobacco user Years Smoked: (onset 19yo, 1ppd x 31yrs, 30pyh, quit 2020) Substance Use Type: Marijuana service: No Current occupational status: unemployed Current occupation: rt hand Physical Exam Vital Signs: Vital Signs: Last Vital Signs Temp 98.1 F 01/05/25 11:04 Pulse 77 01/05/25 11:04 Resp 18 01/05/25 11:04 BP 126/77 01/05/25 11:04 Pulse Ox 98 01/05/25 11:04 O2 Del Method Room Air 01/05/25 11:04 BMI result Body Mass Index 24.1 Appearance: Alert. Oriented X3. No acute distress. ENT: EAC normal. TM's Normal. Pharynx normal. Uvula midline. Moist mucous membranes.? ?No trismus noted.? No drooling noted.? No muffled voice noted. Dentition:? Patient with poor dentition throughout with multiple old fractured teeth with multiple dental caries.? Tooth #29 with lateral fracture, Gingival within normal limits.? No fluctuance.? Not consistent with peritonsillar abscess. Not consistent with dental abscess.? No salivary duct obstruction noted. Neck: Normal inspection. Neck supple. FROM. No adenopathy. No meningeal signs. No neck mass noted.? CVS: Normal heart rate and rhythm. Heart sound normal. No murmurs noted. Pulses normal throughout. Respiratory: No respiratory distress. Lung sounds clear to the apices bilaterally.. Skin: Skin warm and dry.? Normal skin color.? Normal skin turgor. No rashes/lesions/lacerations noted. Neuro: Oriented X 3.? No motor deficit.? No sensory deficit.? Reflexes normal. Medical Decision Making Medical Decision Making MDM Narrative: Patient is a 54-year-old male who presents emergency department for evaluation of dental pain tooth #29 with corresponding fracture of the tooth. Denies temperature sensitivity, severe pain/ tenderness of the tooth or purulence to suggest acute pulpitis. no gingival inflammation or bleeding to suggest gingivitis, periodontitis. Does not appear consistent with periapical or periodontal abscess, no fluctuance or purulent drainage noted. review these findings with patient. No indication for antibiotics at this time. He states I do not need any pain medications , advised use of dzaq-whj-amuadbn analgesics as he feels needed and contacting his dental office to determine if there may be a sooner extraction appointment available to him. No trismus, no associated sore throat, no dysphagia, no odynophagia, no hoarseness, no stridor, no dyspnea, low suspicion for paripharyngeal space infection. Uvula is midline, no edema to the soft palate, unlikely peritonsillar abscess. No induration below the angle of the mandible on the neck, nontoxic in appearance, unlikely parapharyngeal abscess. Posterior pharyngeal anatomy is without any evidence of distortion, unlikely retropharyngeal abscess. On examination no tenderness of the floor of the mouth, able to tolerate secretions, no drooling, no nuchal rigidity, no swelling to the neck, unlikely Darryn's angina. Differential Diagnosis Differential Diagnoses: The differential diagnosis associated with the presentation includes (See narrative above) External Record Review External record reviewed: Outpatient record Prescription Management I considered prescription management with: Pain Medication ( see narrative above) and Antibiotic ( See narrative above) Chronic Conditions Patient?s care impacted by: Other ( see PMFSH section) Discharge Plan Discharge Clinical Impression: Toothache Patient Disposition: Home, Self-Care Instructions: Toothache (ED) Additional Instructions: You can take ibuprofen 200 mg, 3 tablets (600mg) every 6-8 hours as needed for pain, in addition to Tylenol 500 mg, 2 tablets (1,000mg) every 4-6 hours as needed for pain, but not to exceed 3 doses daily (3,000mg).? Additional [id number] Orajel/tooth pain relief gel will be helpful for you As discussed, on evaluation today there is not an indication that you need antibiotics at this time. It is most important that you contact your dental office to arrange for sooner appointment if this is an available option as this is what is ultimately going to be best for eliminating the pain. Prescriptions: No Action aspirin 81 mg tablet,chewable 81 mg PO DAILY 90 Days Qty: 90 3RF atorvastatin [Lipitor] 80 mg tablet 80 mg PO BEDTIME 90 Days Qty: 90 3RF metoprolol succinate 50 mg tablet extended release 24 hr 50 mg PO DAILY Qty: 90 3RF acetaminophen [Tylenol 8 Hour] 650 mg tablet extended release 650 mg PO Q8H PRN (Reason: pain ) Qty: 30 0RF nitroglycerin 0.4 mg tablet, sublingual sublingual tamsulosin 0.4 mg capsule 0.4 mg PO QAM bisacodyl [Dulcolax (bisacodyl)] 5 mg tablet,delayed release (DR/EC) 20 mg PO ONCE 1 Days Qty: 4 0RF Rx Instructions: take 4 tabs at noon the day before your colonoscopy polyethylene glycol 3350 [Miralax] 17 gram/dose powder 238 g PO ONCE Qty: 238 0RF Rx Instructions: As directed by gastroenterology department at [facility] Referrals: Noa Vasquez FNP [Primary Care Provider] - Interventions: ED Discharge Assessment Last Done: 01/05/25 11:22 Print Language: Chinese
[2025-01-05 11:22] VITALS: BP 126/77; PULSE 77; RESP 18; TEMP 36.7; O2SAT 98
== END 2025-01-05 11:27 | disposition home or self-care (01) ==
LOC: HO.ED 11:25
PROVIDERS: Emergency Provider Emergency Medicine; PCP Registered Nurse
DX: K08.89 Other specified disorders of teeth and supporting structures (principal)
CPT/HCPCS: 99282

== ENCOUNTER 2025-03-22 07:38 | Outpatient (REF) | payer MEDICAID, SELFPAY ==
[2025-03-22 09:18] LABS: Cholesterol 125 mg/dL (<200); HDL Cholesterol 50 mg/dL (>40); LDL Cholesterol Calculated 63 mg/dL (<100); Triglycerides 60 mg/dL (<150)
== END 2025-03-22 07:39 | disposition home or self-care (01) ==
LOC: HO.LAB 07:38
PROVIDERS: PCP Registered Nurse; Visit Provider Internal Medicine Cardiovascular Disease
DX: I25.10 Atherosclerotic heart disease of native coronary artery without angina pectoris (principal); E78.5 Hyperlipidemia, unspecified
CPT/HCPCS: 36415; 80061

== ENCOUNTER 2025-03-25 15:11 | Outpatient (AMB) | payer MEDICAID, SELFPAY ==
[2025-03-25 15:41] VITALS: BP 120/80; PULSE 53; BMI 24.8
--- NOTE | 2025-03-25 15:41 | MHC.OFFVIS ---
Vital Signs 03/25/25 15:41 Height 5 ft 8 in Weight 163 lb 2.273 oz BMI 24.8 BP 120/80 Blood Pressure Location Lt brachial Position Sitting Pulse 53 Intake Visit Reasons: 1 year follow-up Intake Note: 1 year follow-up ekg feeling good Data Analyst Etl Developer Required: No Allergies shellfish derived [SHELLFISH DERIVED] Allergy (Unknown, Verified 01/05/25 11:07) ANAPHYLAXIS Medication List - Last Reconciled 03/25/25 by Juan Santana MD acetaminophen ER (Tylenol 8 Hour) 650 mg PO Q8H PRN aspirin 81 mg PO DAILY 90 days atorvastatin 80 mg PO BEDTIME bisacodyl (Dulcolax (bisacodyl)) 20 mg (4 x 5 mg) PO ONCE 1 day metoprolol succinate ER 50 mg PO DAILY nitroglycerin 0.4 mg sublingual Q5M MDD Not to exceed more than 3 tab polyethylene glycol 3350 (Miralax) 238 grams PO ONCE tamsulosin 0.4 mg PO QAM HPI Comments Details: Khalif comes for follow-up. He has no new cardiac symptoms. He maintains good level functionality. Currently works in labor intensive job. Denies any exertional chest pain or shortness of breath. Takes all his medications. Denies any lightheadedness, syncope. No orthopnea, PND, leg edema. His most recent LDL is 63 mg/dL. No smoking. [facility] Medical History CAD (coronary artery disease) Stented coronary artery HTN (hypertension) Hyperlipidemia Asthma Personal history of nicotine dependence Surgical History History of heart artery stent History of appendectomy Family History Mother CAD (coronary artery disease) Father Chronic asthma Social History Household Members: Significant Other and Children Housing: Apartment Do you presently have visiting nurse or other home services: No Alcohol intake: current Alcohol intake frequency: a few times a month Alcohol type: hard liquor Patient Tobacco Use Status: Former Tobacco user Years Smoked: (onset 19yo, 1ppd x 31yrs, 30pyh, quit 2020) Substance Use Type: Marijuana service: No Current occupational status: unemployed Current occupation: rt hand Review of Systems Const Denies chills, Denies fatigue, Denies fever(s), Denies frequent falls, Denies weakness, Denies weight gain and Denies weight loss ENT Denies dizziness Card Denies chest pain, Denies leg edema, Denies lightheadedness, Denies palpitations, Denies dyspnea, Denies dyspnea on exertion, Denies orthopnea and Denies other (loss of consciousness) Resp Denies cough, Denies dyspnea and Denies dyspnea on exertion GI Denies hematochezia and Denies change in stool character Musc Denies abnormal gait, Denies muscle weakness, Denies numbness, Denies radiating pain into limb and Denies tingling Neuro Denies abnormal gait, Denies dizziness, Denies frequent falls, Denies numbness, Denies tingling and Denies weakness Endo Denies fatigue and Denies palpitations Physical Exam Vital Signs: Last Vital Signs Pulse 53 03/25/25 15:41 BP 120/80 03/25/25 15:41 BMI result Body Mass Index 24.8 Const General: cooperative, comfortable, no acute distress, alert, awake and well groomed Nutritional Appearance: average body habitus Orientation/consciousness: patient oriented x3 Limitations: no limitations Neck Neck: Yes trachea midline, Yes supple and Yes no JVD Resp Effort & Inspection: normal respiratory effort Auscultation: clear to auscultation bilaterally Cardio Jugular venous distension: no JVD Palpation: normal PMI Rate: regular rate Rhythm: regular rhythm Heart sounds: S1 normal heart sound present and S2 normal heart sound present GI Auscultation: normal bowel sounds Skin General skin exam: no rashes or lesions noted Neuro General: patient oriented x3 and no focal motor deficits Extrem General: Yes no clubbing, cyanosis or edema Psych Appearance: grossly normal Affect: Anxious affect present Office Procedures EKG Details: EKG shows sinus bradycardia at 53 beats per minute otherwise normal EKG [id number], Complete Assessment & Plan Assessment & Plan (1) CAD (coronary artery disease): Comment: (NSTEMI with RAO to OM3 09/2020) Code(s): I25.10 - Atherosclerotic heart disease of [place] coronary artery without angina pectoris Category: Medical Plan: CAD with prior stenting of OM branch for acute coronary syndrome with no current symptoms. Currently doing very well from that perspective. No exertional symptoms. Continue aggressive medical therapy. Lifelong aspirin therapy is advised. Continue high-intensity statin therapy with well optimized LDL. Blood pressure is currently well optimized encouraged to maintain activity level as tolerated. Complete smoking cessation was advised. Myocardial perfusion imaging last year was within normal limits. This carries good prognosis was discussed with him. (2) HTN (hypertension): Code(s): I10 - Essential (primary) hypertension Category: Medical Plan: Hypertension which is currently well optimized advised to monitor blood pressure and maintain a log. Goal blood pressure less than 130/84. Low-salt diet was discussed. Will follow up in the clinic in 1 year's time, sooner p.r.n.. Thank you for allowing me to partake in his care Coding Level of Care Code Est Pt Level 4 (96436) Complex EM visit Add On G2211 Diagnoses CAD (coronary artery disease) I25.10 HTN (hypertension) I10 CPT Codes EKG - CPT: 54702-[id number], Complete ([id number])
--- OUTSIDE RECORDS SUMMARY | 2025-03-25 17:42 | XMS_ITS | Encounter Summary ---
Author Organization [employer] Address [address] [facility] 7t [place] [address] Care Team Providers Care Rail Gang Supervisor Name Role Phone [facility] Primary Care Provider [phone] Reason for Visit * Reason Onset Date Comments Med Refill 05/15/2024 Encounter Details Date Type Department Care Team ([facility] st Contact Info) Description 05/15/2024 Telephone [facility] MEDICINE [address] [place], [place] [phone] [facility] [address] [place] [address] Med Refill Social History Tobacco Use Types Packs/Day Years Used Date Smoking Tobacco: Former Cigarettes Q uit: 2020 Smokeless Tobacco: Former Alcohol Use Standard Drinks/Week Comments Never 0 (1 standard drink = 0.6 oz pur e alcohol) Alcohol Answer Date Recorded Frequency of Alcohol Consumption Not on file 02/16/2024 Average Number of Drinks Not on file 024 Frequency of Binge Drinking Not on file 02/06 Score 0 02/16/2024 Depression Answer Date Recorded Patient Health Questionnaire-9 Score 0 02/16/2024 Patient Health Questionnaire-9 Score 0 02/16/2024 Last PHQ-9: Questionnaire Data Not on file 0 02/16/2024 Housing Stability Answer Date Recorded What is your housing situation today? I have scott sargent 01/17/[address] you li ve. Do you have problems with any of the following? None of the above 01/17/2024 Food Insecurity Answer Date Recorded Within the past 12 months, y ou worried that your food would run out before you got money to buy more: Never True 01/17/2024 Within the past 12 months,th e food you bought just didn't last and you didn't have enough money to get more: Never True 07/2024 Transportation Answer Date Recorded In the past 12 months, has l ack of transportation kept you from medical appts, meetings, work or from getting things needed for daily living? No 01/17/2024 Utilities Answer Date Recorded In the past 12 months, has t he electric, gas, oil or water company threatened to shut off services in your home? No 01/17/2024 Depression Answer Date Recorded Patient Health Questionnaire-2 Score 0 02/16/2024 Sex and Gender Information Value Date Recorded Sex Assigned at Male 08/08/2022 10:34 AM EDT Legal Sex Male 10:34 AM EDT Gender Identity Male 08/08/2022 10:34 AM EDT Sexual Orientation Straight 08/08/2022 10 :34 AM EDT documented as of this encounter Miscellaneous Notes * Telephone Encounter - Faustino Rasmussen - 05/15/2024 12:57 PM EDT TC from pt requesting medication refill. Medications needing refill : tamsulosin (Flomax) 0.4 MG 24 hr capsule To be sent to: [facility] documented in this encounter Plan of Treatment Upcoming Encounters Date Type Department Care Team (Late st Contact Info) Description 04/08/2025 1:30 PM EDT Office Visit [facility] ADULT DENTAL [address] [place] [address] Josue Fernandez DDS [address] [place] [address] 09/16/2025 10:00 AM EST Office Visit [facility] ADULT DENTAL [address] [place] [address] Isaura Agudelo [address] [place] [address] documented as of this encounter Visit Diagnoses Not on filedocumented in this encounter Additional Health Concerns Assessment Noted Time PHQ-9 Depression Total Score: 0 02/16/20 24 2:31 PM EDT documented as of this encounter Care Teams Rail Gang Supervisor Relationship Specialty Start Date End Date Pedro AYAZ Latham [address] [place] [address] PCP - General Family Medicine 06/03/22 Ann Woodard Community Health Worker Case Management 03/07/24 documented as of this encounter
== END 2025-03-25 16:04 | disposition home or self-care (01) ==
PROVIDERS: PCP Registered Nurse; Visit Provider Internal Medicine Cardiovascular Disease
DX: I25.10 Atherosclerotic heart disease of native coronary artery without angina pectoris (principal); I10 Essential (primary) hypertension
CPT/HCPCS: 93010; 99214

== ENCOUNTER → 2025-03-25 15:11 | Outpatient (BNVA) | payer MEDICAID, SELFPAY | PROVIDERS: PCP Registered Nurse; Visit Provider Internal Medicine Cardiovascular Disease | DX: I25.10 Atherosclerotic heart disease of native coronary artery without angina pectoris (principal); I10 Essential (primary) hypertension | CPT/HCPCS: 93005; 99212 ==

== ENCOUNTER 2025-07-10 07:14 | Emergency (ER) | payer OTHER, SELFPAY ==
--- NOTE | ~2025-07-10 | XR_ITS ---
EXAMINATION: XR CHEST CLINICAL INFORMATION: cough COMPARISON: 09/06/2020. Correlation made with CT low-dose chest 04/26/2024. TECHNIQUE: 2 views of the chest were obtained. FINDINGS: The cardiac, hilar, and mediastinal contours are normal. The lungs are clear bilaterally. There is no pneumothorax or pleural effusion. There is no focal osseous or soft tissue abnormality. XR/XR chest 2V IMPRESSION: No active pulmonary disease. Electronically signed by: Osvaldo Lowe MD 07/10/2025 08:26 AM EDT
[2025-07-10 07:29] VITALS: BP 133/89; PULSE 64; RESP 18; TEMP 36.5; O2SAT 98; BMI 24.0
--- NOTE | 2025-07-10 07:30 | ED_ITS ---
HPI - General Adult General Chief complaint: Skin/Abscess/Foreign Body Stated complaint: abscess under L armpit, fever Time Seen by Provider: 07/10/25 07:30 Source: patient Mode of arrival: ambulatory Limitations: no limitations History of Present Illness ED Provider: Fabienne Leon PA-C HPI narrative: This is a 54 year old male that presents with primary complaint of pain and swelling in his left armpit. He states that this started a couple of days ago. He describes this as very painful and states that he attempted to pop it. He endorses that in the past he had similar nodules in his right armpit but they were smaller and passed on their own. He has tried ibuprofen to relieve his pain which worked for his previous nodules but has not helped his current nodule. He also endorses a history of anal abscess in 2017. He is having respiratory symptoms including runny nose, cough, and congestion. He endorses subjective fever due to chills and sweats but has not taken his temperature. He also endorses diarrhea this morning. He denies any chest pain. He denies any history of IV drug use. Related Data Home Medications ?Medication ?Instructions ?Recorded ?Confirmed tamsulosin 0.4 mg capsule 0.4 mg PO QAM 01/26/2303/25 Previous Rx's ?Medication ?Instructions ?Recorded aspirin 81 mg chewable tablet 81 mg PO DAILY 90 days # 90 tabs 10/06/20 acetaminophen 650 mg 650 mg PO Q8H PRN pain #30 tabs 01/14/24 tablet,extended release (Tylenol 8 Hour) bisacodyl 5 mg tablet,delayed 20 mg (4 x 5 mg) PO ONCE 1 day #4 03/26/24 release (Dulcolax (bisacodyl)) tabs polyethylene glycol 3350 17 238 g PO ONCE #238 grams 0 03/26/24 gram/dose oral powder (Miralax) metoprolol succinate 50 mg 50 mg PO DAILY #90 tabs 06/02 tablet,extended release 24 hr atorvastatin 80 mg tablet 80 mg PO BEDTIME #90 tabs nitroglycerin 0.4 mg sublingual 0.4 mg sublingual Q5M #75 tabs 05/16/25 tablet cephalexin 500 mg capsule 500 mg PO Q6H 7 days #28 cap s 10/02/25 doxycycline hyclate 100 mg tablet 100 mg PO BID 7 days #14 tabs 07/10/25 Allergies Allergy/AdvReac Type Severity Reaction Status Date / Time shellfish derived (SHELLFISH Allergy Unknown ANAPHYLAXIS Verified 07/10/25 07:33 DERIVED) Review of Systems 2 Constitutional: Constitutional: Reports as per HPI Eyes: Eyes: Reports as per HPI ENT: Reports as per HPI Cardiovascular: Cardiovascular: Reports as per HPI Respiratory: Respiratory: Reports as per HPI Gastrointestinal: Gastrointestinal: Reports as per HPI Genitourinary: Genitourinary: Reports as per HPI Musculoskeletal: Musculoskeletal: Reports as per HPI Integumentary/Breasts: Skin/Breast: Reports as per HPI Neurologic: Reports as per HPI Psychiatric: Psychiatric: Reports as per HPI Endocrine: Endocrine: Reports as per HPI Hematologic/Lymphatic: Hematologic/Lymphatic: Reports as per HPI Allergic/Immunologic: Allergic/Immunologic: Reports as per HPI [facility] Past Medical History Attestation statement: The following information was validated with the patient. Source: old records reviewed and nursing notes reviewed Medical History CAD (coronary artery disease) Stented coronary artery HTN (hypertension) Hyperlipidemia Asthma Personal history of nicotine dependence Surgical History History of heart artery stent History of appendectomy Family History Family History Mother CAD (coronary artery disease) Father Chronic asthma Social History Social History Household Members: Significant Other and Children Housing: Apartment Do you presently have visiting nurse or other home services: No Alcohol intake: current Alcohol intake frequency: a few times a month Alcohol type: hard liquor Patient Tobacco Use Status: Former Tobacco user Years Smoked: (onset 19yo, 1ppd x 31yrs, 30pyh, quit 2020) Substance Use Type: Marijuana service: No Current occupational status: unemployed Current occupation: rt hand Physical Exam ED Vital Signs: Vital Signs - 24 hr 07/10/25 07:29 07/10/25 10:24 Temperature 97.7 F 98 F Pulse Rate 64 64 Respiratory Rate 18 18 Blood Pressure 133/89 133/89 Pulse Oximetry 98 98 Oxygen Delivery Method Room Air Room Air BMI result Body Mass Index 24.0 Const General: cooperative, alert and awake Nutritional Appearance: well nourished Orientation/consciousness: oriented to person, oriented to place and oriented to time HENMT Head: Yes normal to inspection, Yes normocephalic and Yes atraumatic Ears: external ears normal, TM normal on the right (Mild erthema of TM. ), TM normal on the left and EAC's normal General nose exam: Other nasal findings present Face and sinus: Yes normal facial exam Mouth: Normal oral and palatal mucosa present, no drooling and no muffled voice Eyes General: appearance normal, both eyes and all related structures Periorbital: periorbital findings normal Eyelids: Yes eyelids normal Conjunctivae: conjunctivae normal Pupils: Equal, round and reactive pupils present EOM: EOMs intact bilaterally Neck Neck: Yes normal visual inspection Chest Chest/axillae images: 2 1. small abscess - actively draining pus Resp Effort & Inspection: normal respiratory effort Cardio Rate: regular rate Rhythm: regular rhythm Heart sounds: S1 normal heart sound present and S2 normal heart sound present GI Inspection: Yes normal to inspection Palpation (GI): Soft to palpation, nontender, no guarding, no masses and No Rebound tenderness present Auscultation: normal bowel sounds Skin General skin exam: fluctuance Neuro General: oriented to person, oriented to place and oriented to time Cranial nerves: Yes Equal, round and reactive pupils present Cognition (Neuro): normal cognition Extrem General: Yes normal to inspection Psych Appearance: grossly normal Mental Status: mental status grossly normal Speech and movement: Normal speech and movement present Affect: normal affect Attitude: cooperative Thought process: Normal thought process present Thought content: Normal thought content present Insight: Good insight present (Psych) Judgement: Good judgement present (Psych) Medical Decision Making Medical Decision Making MDM Narrative: Patient is a 54 year old assigned male at with a history of CAD, HTN, and HLD presenting to the emergency department today with a cough and left armpit abscess. Patient's physical exam was as noted in the physical exam portion of this note and consistent with a URI and actively draining left axillary abscess. Patient's chest x-ray showed no acute process. Patient's COVID-19 and influenza testing was negative. Given the abscessed area is already open and draining, I dressed it with gauze and instructed the patient to keep the area open / draining and will treat the patient with PO ABX. I explained my physical exam findings as well as all test results to the patient. I answered all questions asked by the patient. I stressed the importance of the patient taking his medication as directed (either prescribed or as the over the counter packaging recommends). I stressed the importance of the patient following up with his primary care provider. I stressed the importance of the patient returning to the emergency department immediately if his symptoms were to worsen or if he were to develop any dizziness, shortness of breath, difficulty breathing, chest pain, blurry vision, loss of vision, nausea, vomiting, abdominal pain, fever, chills, back pain, or any other complaints. Patient verbalized agreement and understanding with this treatment plan and discharge. Differential Diagnosis Differential Diagnoses: The differential diagnosis associated with the presentation includes Left axillary abscess URI COVID-19 Influenza Admission/Observation Consideration of admission/observation: Escalation of care including admission/observation considered Patient would have been admitted to the hospital had his work up had any findings where hospital admission was appropriate and his clinical presentation warranted hospital admission. Lab Data [facility] Lab Attestation statement: I reviewed the patient's lab results. My interpretation of these results are in the [facility] Rationale portion of this note. Labs: Lab Results 07/10/25 Range/Units 08:21 COVID-19 (SHARI) Negative (Negative) COVID-19 Clin Com See Note Influenza Type A (LIZBETH) Negative (Negative) Influenza Type B (LIZBETH) Negative (Negative) Influenza A & B Note See Note Independent Interpretation I performed an independent interpretation of an: Plain X-Ray Interpretation: My interpretation is in agreement with the radiologist's impression of this imaging study. L Reason for Exam: cough EXAMINATION: XR CHEST CLINICAL INFORMATION: cough COMPARISON: 09/06/2020. Correlation made with CT low-dose chest 04/26/2024. TECHNIQUE: 2 views of the chest were obtained. FINDINGS: The cardiac, hilar, and mediastinal contours are normal. The lungs are clear bilaterally. There is no pneumothorax or pleural effusion. There is no focal osseous or soft tissue abnormality. XR/XR chest 2V IMPRESSION: No active pulmonary disease. Electronically signed by: Osvaldo Lowe MD 07/10/2025 08:26 AM EDT Dictated By: Osvaldo Lowe MD Signed By: Electronically signed by Osvaldo Lowe MD 07/10/25 0829 Radiology Impression Discussion of test interpretation with radiology: I have reviewed the radiologist's reading. Prescription Management I considered prescription management with: Antibiotic (patient prescribed antibiotics for left axillary abscess) Discharge Plan Discharge Clinical Impression: Abscess, Viral illness Patient Disposition: Home, Self-Care Instructions: Abscess (ED), Viral Syndrome (ED) Additional Instructions: Your left arm pit abscess is already draining - continue to allow it to do so. Apply warm compresses to the area. Take your antibiotic as prescribed. You also have a viral illness - continue to stay well hydrated. IF you are prescribed home medications and/or you are taking over the counter medications at home - it is very important you continue to do so as prescribed / directed unless told otherwise. Follow up with your primary care provider. Return to the emergency department immediately if your symptoms worsen or if you develop any numbness, tingling, dizziness, shortness of breath, difficulty breathing, chest pain, blurry vision, loss of vision, nausea, vomiting, abdominal pain, fever, chills, back pain, or any other complaints. Please see the information below about our Patient Portal. If you are not yet enrolled in the [facility] Patient Portal, you will receive an enrollment email invitation following your visit to any [facility] care setting. You may also self-enroll in the Patient Portal by visiting our website: [email or web address] The following information is required to access the Patient Portal: - Your [facility] Record Number - Your personal home email address (must match what is in your electronic medical record, Registration staff can assist with this) - Name - Date of Capabilities of the Patient Portal: - Message some providers - View upcoming appointments - Access your health summary, medical history, and visit history - View current conditions and allergies - View procedure and lab results - View your medications, including guidelines, side effects, and precautions - Complete pre-appointment questionnaires requested by your provider - Ready summary reports of your office visits and procedures To access the Patient Portal Mobile [employer], follow these directions: - Search [employer] in the Maynor Store or Google Play Store - Download the Maynor - Search for [facility] - Enter your login/password Prescriptions: New cephalexin 500 mg capsule 500 mg PO Q6H 7 Days Qty: 28 0RF doxycycline hyclate 100 mg tablet 100 mg PO BID 7 Days Qty: 14 0RF No Action aspirin 81 mg tablet,chewable 81 mg PO DAILY 90 Days Qty: 90 3RF metoprolol succinate 50 mg tablet extended release 24 hr 50 mg PO DAILY Qty: 90 3RF atorvastatin 80 mg tablet 80 mg PO BEDTIME Qty: 90 3RF nitroglycerin 0.4 mg tablet, sublingual 0.4 mg sublingual Q5M Qty: 75 1RF acetaminophen [Tylenol 8 Hour] 650 mg tablet extended release 650 mg PO Q8H PRN (Reason: pain ) Qty: 30 0RF tamsulosin 0.4 mg capsule 0.4 mg PO QAM bisacodyl [Dulcolax (bisacodyl)] 5 mg tablet,delayed release (DR/EC) 20 mg PO ONCE 1 Days Qty: 4 0RF Rx Instructions: take 4 tabs at noon the day before your colonoscopy polyethylene glycol 3350 [Miralax] 17 gram/dose powder 238 g PO ONCE Qty: 238 0RF Rx Instructions: As directed by gastroenterology department at [facility] Referrals: Campbell,Noa, FELLER BUNCHER OPERATOR [Primary Care Provider, Medical] Stand Alone Forms: Work/School Release Interventions: ED Discharge Assessment Last Done: 07/10/25 10:24 Discharge Date/Time: 07/10/25 10:28 Print Language: Martiniquais
--- OUTSIDE RECORDS SUMMARY | 2025-07-10 07:59 | XMS_ITS | Encounter Summary ---
Author Organization [employer] Address [address] [facility] 7t [place] [address] Care Team Providers Care Ticket Collector Name Role Phone [facility] Primary Care Provider [phone] Reason for Visit * Reason Comments Med Change Request Encounter Details Date Type Department Care Team ([facility] Contact Info) Description 10/18/2024 Refill [facility] [address] [place], [place] [phone] Shannan Zurita NP [address] [place], [place] [phone] Anxiety Social History Tobacco Use Types Packs/Day Years Used Date Smoking Tobacco: Former Cigarettes Q uit: 2020 Passive Smoke Exposure: Past Smokeless Tobacco: Former Alcohol Use Standard Drinks/Week Comments Never 0 (1 standard drink = 0.6 oz pur e alcohol) Alcohol Answer Date Recorded Frequency of Alcohol Consumption Not on file 02/16/2024 Average Number of Drinks Not on file 024 Frequency of Binge Drinking Not on file 02/06 Score 0 02/16/2024 Depression Answer Date Recorded Patient Health Questionnaire-9 Score 0 08/27/2024 Patient Health Questionnaire-9 Score 0 08/27/2024 Last PHQ-9: Questionnaire Data Not on file 1 10/27/2023 Housing Stability Answer Date Recorded What is [...] Date Recorded Patient Health Questionnaire-2 Score 0 08/27/2024 Internet Access Answer Date Recorded Internet Access Q1 Yes 07/04/2024 Internet Access Q2 Not on file 07/04/2024 Sex and Gender Information Value Date Recorded Sex Assigned at Male 08/08/2022 10:34 AM EDT Legal Sex Male 10:34 AM EDT Gender Identity Male 08/08/2022 10:34 AM EDT Sexual Orientation Straight 08/08/2022 10 :34 AM EDT documented as of this encounter Plan of Treatment Upcoming Encounters Date Type Department Care Team (Late st Contact Info) Description 07/16/2025 3:00 PM EDT Office Visit [facility] MEDICINE [address] [place] [address] Noa Vasquez [facility] [address] [place] [address] 09/16/2025 10:15 AM EST Office Visit [facility] ADULT DENTAL [address] [place] [address] Jammie, Isaura [address] [place] [address] documented as of this encounter Visit Diagnoses Diagnosis Anxiety Anxiety state, unspecified documented in this encounter Additional Health Concerns Assessment Noted Time PHQ-9 Depression Total Score: 0 08/27/20 24 9:09 AM EST documented as of this encounter Care Teams Ticket Collector Relationship Specialty Start Date End Date Noa Vasquez FNP [address] [place] [phone] PCP - General Family Medicine 06/03/22 Ann Woodard Community Health Worker Case Management 03/07/24 documented as of this encounter
--- OUTSIDE RECORDS SUMMARY | 2025-07-10 07:59 | XMS_ITS | Encounter Summary ---
Author Organization [employer] Address [address] [facility] 7t [place] [address] Care Team Providers Care Supervisor Boat [employer]fitting Name Role Phone [facility] Primary Care Provider Reason for Visit * Reason Comments Med Refill Encounter Details Date Type Department Care Team ([facility] st Contact Info) Description 02/14/2025 Refill [facility] MEDICINE [address] [place], [place] [phone] [facility] [address] [place] [address] Benign localized prostatic hyperplasia with lower urinary tract symptoms (LUTS) Social History Tobacco Use Types Packs/Day Years [...] the past 12 months, has t he [employer], gas, oil or water company threatened to [...] Description 07/16/2025 3:00 PM EDT Office Visit [facility] MEDICINE [address] [place] [address] Noa Vasquez [facility] [address] [place] [address] 09/16/2025 10:15 AM EST Office Visit [facility] ADULT DENTAL [address] [place] [address] Jammie, Isaura [address] [place] [address] documented as of this encounter Visit Diagnoses Diagnosis Benign localized prostatic hyperplasia with lower urinary tract symptoms (LUTS) documented in this encounter Additional Health Concerns Assessment Noted Time PHQ-9 Depression Total Score: 0 08/27/20 24 9:09 AM EST documented as of this encounter Care Teams Supervisor [employer] Relationship Specialty Start Date End Date Noa Vasquez FNP [address] [place] [address] PCP - General Family Medicine 06/03/22 Ann Woodard Community Health Worker Case Management 03/07/24 documented as of this encounter
--- OUTSIDE RECORDS SUMMARY | 2025-07-10 07:59 | XMS_ITS | Encounter Summary ---
Author Organization [employer] Address [address] [place] [address] 7 [place] [address] Care Team Providers Care Accident Report Clerk Name Role Phone Noa Vasquez [facility] Primary Care Provider [phone] Encounter Details Date Type Department Care Team (Latest Contact Info) Description 04/13/[address] [facility] Dental, Provider, DDS Social History Tobacco Use Types Packs/Day Years Used Date Smoking Tobacco: Never Assessed Sex and Gender Information Value Date Recorded Sex Assigned at Male 08/08/2022 10:34 AM EDT Legal Sex Male 10:34 AM EDT Gender Identity Male 08/08/2022 10:34 AM EDT Sexual Orientation Straight 08/08/2022 10 :34 AM EDT documented as of this encounter Plan of Treatment Upcoming Encounters Date Type Department Care Team ( st Contact Info) Description 07/16/2025 3:00 PM EDT Office Visit [facility] MEDICINE [address] [place] [address] Noa Vasquez FNP [address] [place] [address] 09/16/2025 10:15 AM EST Office Visit [facility] ADULT DENTAL [address] [place] [address] Isaura Agudelo [address] [place] [address] documented as of this encounter Visit Diagnoses Not on filedocumented in this encounter Care Teams Accident Report Clerk Relationship Specialty Start Date End Date Noa Vasquez FNP [address] [place] [address] PCP - General Family Medicine 06/03/22 Ann Woodard Community Health Worker Case Management 03/07/24 documented as of this encounter
--- OUTSIDE RECORDS SUMMARY | 2025-07-10 07:59 | XMS_ITS | Encounter Summary ---
Author Organization [employer] Address [address] [facility] [address] [place] [address] Care Team Providers Care Cad Manager Name Role Phone Noa Vasquez [facility] Primary Care Provider [phone] Reason for Visit * Reason Comments Med Refill Encounter Details Date Type Department Care Team ([facility] Contact Info) Description 03/25/2023 Refill [facility] [address] [place] [address] Roopa Gutiérrez FNP Benign localized prostatic hyperplasia with lower urinary tract symptoms (LUTS) Social History Tobacco Use Types Packs/Day Years Used Date Smoking Tobacco: Former Cigarettes Q uit: 2020 Smokeless Tobacco: Former Alcohol Use Standard Drinks/Week Comments Never 0 (1 standard drink = 0.6 oz pur e alcohol) Depression Answer Date Recorded Patient Health Questionnaire-9 Score 0 03/03/2023 Depression Answer Date Recorded Patient Health Questionnaire-2 Score 0 03/03/2023 Sex and Gender Information Value Date Recorded Sex Assigned at Male 08/08/2022 10:34 AM EDT Legal Sex Male 10:34 AM EDT Gender Identity Male 08/08/2022 10:34 AM EDT Sexual Orientation Straight 08/08/2022 10 :34 AM EDT COVID-19 Exposure Response Date Recorded In the last 10 days, have yo u been in contact with someone who was confirmed or suspected to have Coronavirus/COVID-19? No / Unsure 03/03/2023 3:22 PM EDT documented as of this encounter Plan of Treatment Upcoming Encounters Date Type Department Care Team ([facility] Contact Info) Description 07/16/2025 3:00 PM EDT Office Visit [facility] [address] [place], [place] [phone] Noa Vasquez FNP [address] [place] [address] 09/16/2025 10:15 AM EST Office Visit [facility] ADULT DENTAL [address] [place], [place] [phone] Isaura Agudelo [address] [place] [address] documented as of this encounter Visit Diagnoses Diagnosis Benign localized prostatic hyperplasia with lower urinary tract symptoms (LUTS) documented in this encounter Additional Health Concerns Assessment Noted Time PHQ-9 Depression Total Score: 0 03/03/20 23 3:31 PM EDT documented as of this encounter Care Teams Cad Manager Relationship Specialty Start Date End Date Pedro AYAZ Latham [address] [place] [address] PCP - General Family Medicine 06/03/22 Ann Woodard Community Health Worker Case Management 03/07/24 documented as of this encounter
--- OUTSIDE RECORDS SUMMARY | 2025-07-10 07:59 | XMS_ITS | Encounter Summary ---
Author Organization [employer] Address [address] [facility] 7t [place] [address] Care Team Providers Care Hand Bulldozer Name Role Phone [facility] Primary Care Provider [phone] Reason for Visit * Reason Comments Med Refill Encounter Details Date Type Department Care Team ([facility] st Contact Info) Description 03/05/[address] [facility] MED[facility]INE [address] [place], [place] [phone] [facility] [address] [place], [place] [phone] Benign localized prostatic hyperplasia with lower urinary [...] Description 07/16/2025 3:00 PM EDT Office Visit [facility] MED[facility]INE [address] [place] [address] Noa Vasquez [facility] [address] [place] [address] 09/16/2025 10:15 AM EST Office Visit [facility] ADULT DENTAL [address] [place] [address] Jammie Isaura [address] [place] [address] documented as of this encounter Visit Diagnoses Diagnosis Benign localized prostatic hyperplasia with lower urinary tract symptoms (LUTS) documented in this encounter Additional Health Concerns Assessment Noted Time PHQ-9 Depression Total Score: 0 02/16/20 24 2:31 PM EDT documented as of this encounter Care Teams Hand Bulldozer Relationship Specialty Start Date End Date Noa Vasquez FNP [address] [place] [address] PCP - General Family Medicine 06/03/22 Ann Woodard Community Health Worker Case Management 03/07/24 documented as of this encounter
--- OUTSIDE RECORDS SUMMARY | 2025-07-10 07:59 | XMS_ITS | Clinical Summary ---
Author Organization [employer] Address [address] [facility] 7t [place] [address] Care Team Providers Care Furniture Refinisher Name Role Phone Pedro [facility] Primary Care Provider [phone] Allergies Active Allergy Reactions Criticality Noted Date Comments Shellfish Allergy 12/09/2022 red face, fever, breathing complications Shellfish-Derived Products 10/23/2020 Medications * This document contains information received from the source organization and may not represent a complete record from that organization. acetaminophen (Tylenol) 325 MG tablet Take 325 mg by mouth every 4 (four) hours if needed. 2 Active aspirin 81 MG chewable tablet Chew 1 tablet at bed time. 0 Active nitroglycerin (Nitrostat) 0.4 MG SL tabletIndications :Essential hypertension Place 1 tablet (0.4 mg) under the tongue every 5 (five) minutes if needed for chest pain. 90 tablet 1 3 Active atorvastatin (Lipitor) 80 MG tablet Take 1 tablet (80 mg) by mouth at bedtime. 90 tablet 1 3 Active metoprolol succinate XL (Toprol-XL) 50 MG 24 hr tablet Take 1 tablet (50 mg) by mouth in the morning. 90 tablet 1 3 Active FLUoxetine (PROzac) 20 MG capsuleIndication s:Anxiety Take 1 capsule (20 mg) by mouth Once per day. 30 capsule 1 4 Active hydrOXYzine pamoate (Vistaril) 25 MG capsuleIndication s:Anxiety TAKE 1 CAPSULE BY MOUTH EVERY 6 HOURS NEEDED FOR ANXIETY 360 capsule 5 Active tamsulosin (Flomax) 0.4 MG 24 hr capsuleIndication s:Benign localized prostatic hyperplasia with lower urinary tract symptoms (LUTS) TAKE 1 CAPSULE BY MOUTH EVERY DAY IN THE MORNING 90 capsule 1 Active Active Problems Problem Noted Date Diagnosed Date Open fracture of tooth 04/08/2025 Localized gingival recession 03/05/2025 Encounter for preventive care 07/12/2024 Assessment & Plan (07/12/2024 10:00 AM EDT): See HPI Dental calculus 02/16/2024 Periodontal disease 02/16/2024 Missing teeth, acquired 02/16/2024 Healthcare maintenance 02/18/2023 Overview (02/18/2023): Healthcare Maintenance: C-scope: Referred to GI for first colonoscopy screening PSA: 12/2022 Elbow tendonitis 12/09/2022 History of KS (myocardial infarction) 12/09/2022 Overview (02/18/2023): 09/2021. S/p stent placement Followed by [facility] cardiology Daily aspirin Hearing loss in right ear 12/09/2022 Essential hypertension 09/08/2022 Overview (09/01/2024): Well controlled with diet and exercise Metoprolol XR 50mg daily Hx of KS 2020. S/p stent placement Followed by [facility] cardiology - Aerobic exercise to reduce BP. Initial goal of 30 min walk 3-5x/week. Increase as tolerated. - low-sodium diet (goal: <2g/day) and heart healthy diet such as DASH to reduce BP and prevent ASCVD. - Home BP monitoring 1-2 x day with goal of <140/90. - Seek immediate medical attention for chest pain, palpitations, SOB, syncope, or sudden changes in mental status. - Do not change or discontinue current prescriptions without first consulting health care provider Assessment & Plan (07/12/2024 9:59 AM EDT): Controlled c/w current interventions f/u with cardiology and PCP Assessment & Plan (09/07/2023 10:17 PM EST): Well controlled Continue current regimen Follow up as scheduled with cardiology Mixed hyperlipidemia 09/08/2022 Overview (09/07/2023): Atorvastatin 80mg 12/2022- LDL <70 Assessment & Plan (09/07/2023 10:19 PM EST): Well controlled Continue current regimen Anxiety 04/15/2021 Overview (02/17/2023): No current therapist Using khanh to help in the evening Encounters Date Type Department Care Team Description 07/04/2025 Orders Only [facility] [address] [place], [place] [phone] Anthony Robin RN 06/10/2025 Telephone [facility] [address] [place] [address] [place]Noa FNP recall 05/24/2025 Refill [facility] [address] [place], [place] [phone] [employer]No[employer] Benign localized prostatic hyperplasia with lower urinary tract symptoms (LUTS) from Last 3 Months Immunizations Immunization Administration Dates Next Due Influenza injectable quadrivalent preservative f ree 12/09/2022,10/23/2020 Influenza, seasonal, injectable, preservative fr ee 07/12/2024 Pneumococcal Conjugate PCV 20 08/27/2024 Tdap 10/23/2020,12/16/2009 Family History Medical History Relation Name Comments Diabetes type II Father Coronary artery disease Mother Diabetes type II Mother Breast cancer Sister Colon cancer Neg Hx Relation Name Status Comments Father Mother Sister Social History Tobacco Use Types Packs/Day Years Used Date Smoking Tobacco: Former Cigarettes Q uit: 2020 Passive Smoke Exposure: Past Smokeless Tobacco: Former Tobacco Cessation:Counseling Given: Not Answered Alcohol Use Standard Drinks/Week Comments Never 0 [...] is your housing situation today? I have csott sargent 01/17/[address] you [...] Orientation Straight 08/08/2022 10 :34 AM EDT Last Filed Vital Signs Vital Sign Reading Time Taken Comments Blood Pressure 124/70 03/05/2025 10:06 AM EDT Pulse 70 09/26/2024 2:23 PM EST Temperature 36.9 C (98.5 F) 09/26/2024 2:23 PM EST Respiratory Rate 18 09/26/2024 2:23 PM EST Oxygen Saturation 98% 09/26/2024 2:23 PM EST Inhaled Oxygen Concentration - - Weight 72.6 kg (160 lb) 09/26/2024 2:23 PM EST Height 175.3 cm (5' 9 ) 09/25/2024 2:48 PM EST Body Mass Index 23.63 09/25/2024 2:48 PM EST Plan of Treatment Upcoming Encounters Date Type Department Care Team (Late st Contact Info) Description 07/16/2025 3:00 PM EDT Office Visit [facility] [address] [place], [place] [phone] Noa Vasquez FNP [address] [place] [address] 09/16/2025 10:15 AM EST Office Visit [facility] ADULT DENTAL [address] [place] [address] Martín Agudeloaris [address] [place] [address] Health Maintenance Due Date Last Done Comments CT Colonography 1971 Colonoscopy 1971 Colorectal Cancer Screening 1971 FIT DNA/Cologuard 1971 FIT 1971 FOBT 1971 Sigmoidoscopy 1971 Disability Screening 1971 Alcohol/Substance Use Screening 1983 Zoster Vaccines (1 of 2) 2021 COVID-19 Vaccine ( season) 2025 Influenza Vaccine (#1) 2025 , 12/09/2022, 10/23/2020 Depression Screening 08/27/2025 08/27/2024, 08/27/20 24 SDOH Screening 08/27/2025 08/27/2024 Dental Oral Exam 09/06/2025 03/05/2025, 01/26/2024 Dental Prophylaxis 09/06/2025 03/05/2025, 1 11/03/2023, 02/16/2024 Dental X-Ray: Bitewings 03/06/2026 03/05/20 25, 03/11/2024, 03/07/2024, Additional history exists Tobacco Screening 04/08/2026 04/08/2025 Dental X-Ray: Full Mouth 01/26/2027 024, 01/11/2024, 04/13/2021, Additional history exists Lipid Panel 03/22/2030 03/22/2025, 08/09, 01/02/2024, Additional history exists DTaP/Tdap/Td Vaccines (3 - Td or Tdap) 10/23/2030 10/23/2020, 12/16/2009 RSV Patients and Patients Aged 60 years or older (1 - 1-dose 75+ series) 2046 Pneumococcal Vaccine: 50+ Years Completed 08/27/2024 HIV Screening Completed 07/01/2025, 02/06, 12/09/2022 Hepatitis C Screening Completed 07/01/2025 HIB Vaccines Aged Out No longer eligi ble based on patient's age to complete this topic HPV Vaccines Aged Out No longer eligi ble based on patient's age to complete this topic Hepatitis A Vaccines Aged Out No long er eligible based on patient's age to complete this topic Hepatitis B Vaccines Discontinued IPV Vaccines Aged Out No longer eligi ble based on patient's age to complete this topic Meningococcal B Vaccine Aged Out No l onger eligible based on patient's age to complete this topic Meningococcal Vaccine Aged Out No dia johanna eligible based on patient's age to complete this topic RSV under 20 months Aged Out No longe r eligible based on patient's age to complete this topic Rotavirus Vaccines Aged Out No longer eligible based on patient's age to complete this topic Procedures Procedure Name Priority Date/Time Associated Diagnosis Comments HIV ANTIBODY/ANTIGEN ([facility]) Routine 07/01/2025 HEPATITIS C ANTIBODY ([facility]) Routine 07/01/2025 SYPHILIS ABS ([facility]) Routine 07/01/2025 CHLAMYDIA/GONORRHEA - URINE ([facility]) Routine 07/01/2025 CHLAMYDIA/GONORRHEA THROAT SWAB ([facility]) Routine 07/01/2025 LIPID PANEL, STANDARD Routine 03/22/2025 8:05 AM EDT Screening-pulmonary TB PROPHYLAXIS - ADULT Routine 03/05/2025 1 0:00 AM EDT Periodontal disease Dental calculus BITEWINGS - 4 RADIOGRAPHIC IMAGES Routine 03/05/2025 10:00 AM EDT Missing teeth, acquired Periodontal disease Dental calculus Localized gingival recession PERIODIC ORAL EVALUATION - ESTABLISHED PATIENT Routine 03/05/2025 10:00 AM EDT INTRAORAL - COMPLETE SERIES OF RADIOGRAPHIC IMAGES Routine 01/26/2024 8:00 AM EDT from Last 3 Months or Most Recently Relevant to Health Maintenance Results * Chlamydia/Gonorrhea Throat Swab ([facility]) (07/01/2025) Chlamydia Throat Swab Negative Gonorrhea Throat Swab Negative Swab 07/01/2025 [facility] MD LAB MICROBIOLOGY - GENERA L ORDERABLES Final Result * Chlamydia/Gonorrhea, Urine ([facility]) (07/01/2025) Pathologist [facility] Chlamydia, Urine Negative Negative, Indeterminate, None Detected, Invalid, Specimen unsatisfactory for evaluation, Weakly Positive, 2+ Gonorrhea, Urine Negative Negative, Indeterminate, None Detected, Invalid, Specimen unsatisfactory for evaluation, Weakly Positive, 2+ Urine 07/01/2025 [facility] MD LAB URINE ORDERABLES Carolina l Result * Syphilis Antibodies ([facility]) (07/01/2025) Syphilis Abs Nonreactive Borderline, Nonreactive, Weakly Reactive, Inconclusive, Specimen unsatisfactory for evaluation Blood Venous blood specimen / Unknown 07/01/2025 [facility] Provider MD LAB BLOOD ORDERABLES Carolina l Result * Hepatitis C Antibody ([facility]) (07/01/2025) Pathologist [facility] Hepatitis C Ab Nonreactive Blood 07/01/2025 [facility] Provider MD LAB BLOOD ORDERABLES Carolina l Result * HIV Ab/Ag ([facility]) (07/01/2025) HIV Ag/Ab Nonreactive Blood 07/01/2025 us Historical Provider MD LAB BLOOD ORDERABLES Carolina l Result * Lipid Panel, Standard (03/22/2025 8:05 AM EDT) Triglycerides 60 <150 mg/dL [facility] Comment:Desirable Triglyceri de: less than 150 mg/dLBorderline High Triglyceride 150-199 mg/dLHigh Triglyceride: 200-499 mg/dLVery High Triglyceride: greater than or equal to 5OO mg/dL Cholesterol 125 <200 mg/dL [facility] Comment:Desirable Cholestero l: less than 200 mg/dLBorderline High Cholesterol: 200-239 mg/dLHigh Cholesterol: greater than 239 mg/dL LDL Cholesterol Calculated 63 <100 mg/dL [facility] Comment:Desirable LDL: less than 100 mg/dLNear Optimal/Above Optimal LDL: 110- 129 mg/dLBorderline High LDL: 130-159 mg/dLHigh LDL: 160-189 mg/dLVery High LDL: greater than or equal to 190 mg/dL HDL Cholesterol 50 >40 mg/dL [facility] Comment:Desirable HDL: grea ter than 40 mg/dL Note: This HDL assay may give artificially low results in patients with liver disease. 03/22/2025 8:05 AM EDT 03/22/2025 8:05 AM EDT us Generic External Data Provider LAB BLOOD ORDERAB LES Final Result [facility] [address] [place] [phone] from Last 3 Months or Most Recently Relevant to Health Maintenance Insurance [facility] C3 HSN FULL DENTAL-[facility] MEDICAID STAND ADULT Care Teams Furniture Refinisher Relationship Specialty Start Date End Date Noa Vasquez FNP [address] [place] [phone] PCP - General Family Medicine 06/03/22 Ann Woodard Community Health Worker Case Management 03/07/24
--- OUTSIDE RECORDS SUMMARY | 2025-07-10 07:59 | XMS_ITS | Encounter Summary ---
Author Organization [employer] Address [address] [facility] 7t [place] [address] Care Team Providers Care Multigrapher Name Role Phone Pedro [facility] Primary Care Provider [phone] Reason for Visit * Reason Onset Date Comments medication 01/11/2024 Encounter Details Date Type Department Care Team ([facility] st Contact Info) Description 01/11/2024 Telephone [facility] ADULT DENTAL [address] [place], [place] [phone] Shaniqua Mcleod BDS medication Social History Tobacco Use Types Packs/Day Years Used Date Smoking Tobacco: Former Cigarettes Q uit: 2020 Smokeless Tobacco: Former Alcohol Use Standard Drinks/Week Comments Never 0 (1 standard drink = 0.6 oz pur e alcohol) Depression Answer Date Recorded Patient Health Questionnaire-9 Score 0 03/03/2023 Housing Stability Answer Date Recorded What is your housing situation today? I have scott sargent 08/08/[address] you li ve. Do you have problems with any of the following? None of the above 08/08/2023 Food Insecurity Answer Date Recorded Within the past 12 months, y ou worried that your food would run out before you got money to buy more: Never True 08/08/2023 Within the past 12 months,th e food you bought just didn't last and you didn't have enough money to get more: Never True Transportation Answer Date Recorded In the past 12 months, has l ack of transportation kept you from medical appts, meetings, work or from getting things needed for daily living? No 08/08/2023 Utilities Answer Date Recorded In the past 12 months, has t he electric, gas, oil or water company threatened to shut off services in your home? No 08/08/2023 Depression Answer Date Recorded Patient Health Questionnaire-2 Score 0 03/03/2023 Sex and Gender Information Value Date Recorded Sex Assigned at Male 08/08/2022 10:34 AM EDT Legal Sex Male 10:34 AM EDT Gender Identity Male 08/08/2022 10:34 AM EDT Sexual Orientation Straight 08/08/2022 10 :34 AM EDT documented as of this encounter Miscellaneous Notes * Telephone Encounter - Paige Mcgovern - 01/12/2024 10:42 AM EDT The medication that was sent to the pharmacy is not working. He says he needs something else needs to be sent. Its juts regular tylenol and the mouthwash that was sent is not working either. Patient is in a lot of pain. Can something stronger be sent? Patient would like something else to be sent before the weekend hits * Telephone Encounter - Paige Mcgovern - 01/11/2024 2:25 PM EDT Patient called in stating that his medication has not been sent to the pharmacy documented in this encounter Plan of Treatment Upcoming Encounters Date Type Department Care Team (Late st Contact Info) Description 07/16/2025 3:00 PM EDT Office Visit [facility] MEDICINE [address] [place] [address] Ap[place]olaNoa FNP [address] [place] [address] 09/16/2025 10:15 AM EST Office Visit [facility] ADULT DENTAL [address] [place] [address] Martín Agudeloaris [address] [place] [address] documented as of this encounter Visit Diagnoses Not on filedocumented in this encounter Additional Health Concerns Assessment Noted Time PHQ-9 Depression Total Score: 0 03/03/20 23 3:31 PM EDT documented as of this encounter Care Teams Multigrapher Relationship Specialty Start Date End Date Pedro AYAZ Latham [address] [place] [id number] PCP - General Family Medicine 06/03/22 Ann Woodard Community Health Worker Case Management 03/07/24 documented as of this encounter
--- OUTSIDE RECORDS SUMMARY | 2025-07-10 07:59 | XMS_ITS | Encounter Summary ---
Author Organization [employer] Address [address] [facility] 7t [place] [address] Care Team Providers Care Metal Model Builder Name Role Phone [facility] Primary Care Provider [phone] Reason for Visit * Reason Onset Date Comments Referral 11/06/2023 Encounter Details Date Type Department Care Team ([facility] Contact Info) Description 11/06/2023 Telephone [facility] MEDICINE [address] [place], [place] [phone] [facility] [address] [place], [place] [phone] Referral Social History Tobacco Use Types Packs/Day Years [...] encounter Miscellaneous Notes * Telephone Encounter - Shayy Shea - 11/06/2023 11:48 AM EST Tc from pt requesting a new referral for ENT in documented in this encounter Plan of Treatment Upcoming Encounters Date Type Department Care Team (Late st Contact Info) Description 07/16/2025 3:00 PM EDT Office Visit [facility] MEDICINE [address] [place] [address] Noa Vasuqez FNP [address] [place] [address] 09/16/2025 10:15 AM EST Office Visit [facility] ADULT DENTAL [address] [place] [address] Jammie, Isaura [address] [place] [address] documented as of this encounter Visit Diagnoses Not on filedocumented in this encounter Additional Health Concerns Assessment Noted Time PHQ-9 Depression Total Score: 0 03/03/20 23 3:31 PM EDT documented as of this encounter Care Teams Metal Model Builder Relationship Specialty Start Date End Date Noa Vasquez FNP [address] [place] [address] PCP - General Family Medicine 06/03/22 Ann Woodard Community Health Worker Case Management 03/07/24 documented as of this encounter
--- OUTSIDE RECORDS SUMMARY | 2025-07-10 07:59 | XMS_ITS | Encounter Summary ---
Author Organization [employer] Address [address] [facility] 7t [place] [address] Care Team Providers Care Director It Name Role Phone [facility] Primary Care Provider [phone] Reason for Visit * Reason Onset Date Comments Med Refill 05/15/2024 Encounter Details Date Type Department Care Team ([facility] st Contact Info) Description 05/15/2024 Telephone [facility] MEDICINE [address] [place], [place] [phone] [facility] [address] [place] [address] Med Refill Social History Tobacco Use Types [...] 24 hr capsule To be sent to: [facility] documented in this encounter Plan of Treatment Upcoming Encounters Date Type Department Care Team (Late st Contact Info) Description 07/16/2025 3:00 PM EDT Office Visit [facility] MEDICINE [address] [place] [address] [facility] [address] [place] [address] 09/16/2025 10:15 AM EST Office Visit [facility] ADULT DENTAL [address] [place] [address] Jammie, Isaura [address] [place] [address] documented as of this encounter Visit Diagnoses Not on filedocumented in this encounter Additional Health Concerns Assessment Noted Time PHQ-9 Depression Total Score: 0 02/16/20 24 2:31 PM EDT documented as of this encounter Care Teams Director It Relationship Specialty Start Date End Date Pedro AYAZ Latham [address] [place] [phone] PCP - General Family Medicine 06/03/22 Ann Woodard Community Health Worker Case Management 03/07/24 documented as of this encounter
[2025-07-10 09:19] LABS: COVID-19 Test Negative (Negative); IDNOW Serial# 55D5AD1C; IDNOW Serial# 58CA691E; Influenza B2 Negative (Negative)
[2025-07-10 10:24] VITALS: BP 133/89; PULSE 64; RESP 18; TEMP 36.6; O2SAT 98
== END 2025-07-10 10:28 | disposition home or self-care (01) ==
PROVIDERS: Physician Assistant Medical; Emergency Provider Emergency Medicine; PCP Registered Nurse
DX: L02.412 Cutaneous abscess of left axilla (principal); B34.9 Viral infection, unspecified; R50.9 Fever, unspecified; R05.9 Cough, unspecified; Z11.52 Encounter for screening for COVID-19
CPT/HCPCS: 71046; 87502; 87635; 99283

== ENCOUNTER → 2025-07-10 08:12 | Outpatient (BNV) | payer SELFPAY | PROVIDERS: Emergency Provider Emergency Medicine; PCP Registered Nurse; Visit Provider Radiology Diagnostic Radiology | DX: R05.9 Cough, unspecified (principal) | CPT/HCPCS: 71046 ==